=== PATIENT | male | born 1950 | race Caucasian/White ===

== ENCOUNTER → 2021-02-22 08:57 | Outpatient (CLI) | payer MEDICARE, SELFPAY ==
--- NOTE | ~2021-02-22 | CT_ITS ---
EXAMINATION: CT abdomen pelvis w con EXAM DATE: 02/22/2021 09:33 INDICATION: Fatigue, generalized abdominal pain. History of ulcerative colitis, kidney stones, just t umor. Jejunal tumor. TECHNIQUE: Spiral CT of the abdomen and pelvis was performed without contrast. Axial, coronal and sag ittal images were reviewed. The dose-length product (DLP) for this examination was 505.08 mGy-cm. T he exposure was tailored according to patient size (auto mA exposure control), and iterative reconstr uction (ASIR) was used as additional dose reduction technique. Comparison is made to prior examinatio n from 01/15/2018. FINDINGS: Multiple bilateral kidney stones measuring up to about 9 mm on the right. No ureteral stone s or hydronephrosis. There is moderate prostatomegaly. The bladder is unremarkable. The liver, spl een, adrenal glands and pancreas are unremarkable. Gallbladder is unremarkable. No biliary obstruct ion. There is no retroperitoneal or pelvic lymphadenopathy. There is mild to moderate scattered ar teriosclerotic disease. Small umbilical fat-containing hernia. The appendix is normal. There is moderate sigmoid colonic diverticulosis. There is no adjacent infla mmatory change to suggest diverticulitis. There is small bowel anastomosis site without wall thicken ing. The stomach and small bowel are unremarkable. There is expected amount of colonic stool. No free intraperitoneal gas. The heart is normal in size. There are no pericardial or pleural effusio ns. The lung bases are unremarkable. There are no osteoblastic or osteolytic lesions identified. IMPRESSION: 1. Bilateral nephrolithiasis. 2. Moderate sigmoid diverticulosis. 3. Small umbilical hernia. 4. Prostatomegaly. Reviewed, dictated and finalized at location B.
[2021-02-22 09:22] LABS: Estimated Glomerular Filt Rate > 60
== END ==
PROVIDERS: PCP Student in an Organized Health Care Education/Training Program; Visit Provider Student in an Organized Health Care Education/Training Program
DX: K57.30 Diverticulosis of large intestine without perforation or abscess without bleeding (principal); K44.9 Diaphragmatic hernia without obstruction or gangrene; N40.0 Benign prostatic hyperplasia without lower urinary tract symptoms; N20.0 Calculus of kidney
CPT/HCPCS: 74177; Q9967

== ENCOUNTER 2022-03-26 07:00 | Outpatient (NON) | payer MEDICARE, SELFPAY | END 2022-03-26 07:01 | disposition home or self-care (01) | PROVIDERS: PCP Student in an Organized Health Care Education/Training Program; Visit Provider Internal Medicine Gastroenterology | DX: K51.90 Ulcerative colitis, unspecified, without complications (principal); M49.80 Spondylopathy in diseases classified elsewhere, site unspecified | CPT/HCPCS: 88305 ==

== ENCOUNTER 2022-03-26 11:15 | Day surgery (SDC) | payer MEDICARE, SELFPAY ==
[2022-03-12 13:47] VITALS: BMI 26.1
[2022-03-26 11:43] VITALS: BP 154/96; PULSE 100; RESP 16; TEMP 36.6; O2SAT 100
[2022-03-26] MEDS: LACTATED RINGERS 1,000 ML 150 ML IV CONT (11:59)
--- NOTE | 2022-03-26 11:59 | WPDANESEPPF ---
Anes - Initial Pre Proc Eval Procedure: Operation Date: 03/26/22 12:45 Proposed Procedures p Diagnostic Colonoscopy - Clarke Howard MD Date/Time: 03/26/22 11:59 Surgeon: Clarke Howard MD Pre Op Diagnosis: Ulcerative Colitis Patient Data Age: 71 Gender: M Height: 1.73 m Weight: 78.4 kg Last Vital Signs Temp 36.6 C 03/26/22 11:43 Pulse 100 03/26/22 11:43 Resp 16 03/26/22 11:43 BP 154/96 H 03/26/22 11:43 Pulse Ox 100 03/26/22 11:43 O2 Del Method Room Air 03/26/22 11:43 Allergies Allergy/AdvReac Type Severity Reaction Status Date / Time ibuprofen Allergy Unknown Ulcers Verified 03/26/22 11:53 Tetanus Vaccines and Toxoid Allergy Unknown Skin Verified 03/26/22 11:53 Reaction tetanus toxoid, adsorbed AdvReac Mild Other Verified 03/26/22 11:53 Home Medications Medication Instructions Recorded Confirmed Type fluticasone propionate 50 2 spray intranasal DAILY 04/14/19 03/26/22 History mcg/actuation nasal spray,suspension (Flonase Allergy Relief) mesalamine 1.2 gram tablet,delayed 4.8 gm PO DAILY 04/14/19 03/26/22 History release (Lialda) multivitamin 1 tablet PO DAILY 02/14/22 03/26/22 History sodium,potassium,mag sulfates 17.5 See Rx Instructions PO .COMPLEX 02/14/22 03/26/22 Rx gram-3.13 gram-1.6 gram oral soln #354 mL (Suprep Bowel Prep Kit) Patient hx anesthesia problems: none Family hx anesthesia problems: none Results Review: All pre-operative results and documents have been reviewed as part of the pre-operative evaluation. 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) Surgical History Surgical History H/O lithotripsy History of knee replacement Hx of inguinal hernia surgery Family History Family History Mother Diabetes mellitus Patient's mother is , Onset Age: 80 Father Hypertension Cerebrovascular accident Patient's father is , Onset Age: 80 Sibling Depression Social History Social History Smoking status: Former smoker Alcohol intake: current Substance use: never Substance use type: does not use Living arrangements: with family Spiritual care concerns: No Anes - Eval Final PreProcedure Day of Procedure 03/26/22 11:59 Patient weight: overweight Heart: regular rate and rhythm Lungs: clear to auscultation Airway: Mallampati scale class II Neurological: alert and oriented Last oral intake: >/= 8 hours ASA classification: II Emergent: no Anesthetic plan: proceed Anesthesia type and monitoring: general GIVS and standard monitoring Results Review: All pre-operative results and documents have been reviewed as part of the pre-operative evaluation. Informed Consent: The patient's anesthetic plan and its attendant risks and benefits were discussed with the patient/family/POA. Questions were solicited and answers provided to the satisfaction of the patient/family/POA.
--- NOTE | 2022-03-26 12:05 | WPDHPUPDATE1 ---
History and Physical Update Update Date/Time: 03/26/22 12:05 History and Physical has been reviewed, including an updated exam of the patient. There are NO changes in the patient's condition. Risks, benefits, and alternatives have been discussed and questions answered. Patient agrees to proceed with procedure.
[2022-03-26 12:28] VITALS: BP 123/81; PULSE 87; RESP 14; O2SAT 97
--- NOTE | 2022-03-26 12:33 | PM.HPGS ---
History of Present Illness History of Present Illness Consent: Risks, benefits, and alternatives have been discussed and questions answered. Patient agrees to proceed with procedure. Chief complaint: Ulcerative Colitis Narrative: Lawrence Schofield is a 71 year old male Presents for screening colonoscopy. Patient has a history of ulcerative colitis diagnosed more than 10 years ago. Patient was found to have limited rectosigmoid itis in the past. He currently presents for surveillance exam is been many years since previous screening exam. Patient reports occasionally will have bright red blood per rectum. Lialda was prescribed patient currently only takes 1 or 2 tablets on an intermittent basis. He recently had a few days of bright red blood per rectum for which he took prednisone perhaps 3 tablets for 2 or 3 days. Patient states his current stools have returned to normal. Patient also has been treated for arthritis. He was told this was rheumatoid arthritis. Family history noncontributory. Review of Systems Review of Systems: Review of systems noncontributory. 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) Surgical History Surgical History H/O lithotripsy History of knee replacement Hx of inguinal hernia surgery Family History Family History Mother Diabetes mellitus Patient's mother is , Onset Age: 80 Father Hypertension Cerebrovascular accident Patient's father is , Onset Age: 80 Sibling Depression Social History Social History Smoking status: Former smoker Alcohol intake: current Substance use: never Substance use type: does not use Living arrangements: with family Spiritual care concerns: No Meds Home Medications and Allergies Home Medications Medication Instructions Recorded Confirmed Type fluticasone propionate 50 2 spray intranasal DAILY 04/14/19 03/26/22 History mcg/actuation nasal spray,suspension (Flonase Allergy Relief) mesalamine 1.2 gram tablet,delayed 4.8 gm PO DAILY 04/14/19 03/26/22 History release (Lialda) multivitamin 1 tablet PO DAILY 02/14/22 03/26/22 History sodium,potassium,mag sulfates 17.5 See Rx Instructions PO .COMPLEX 02/14/22 03/26/22 Rx gram-3.13 gram-1.6 gram oral soln #354 mL (Suprep Bowel Prep Kit) Allergies Allergy/AdvReac Type Severity Reaction Status Date / Time ibuprofen Allergy Unknown Ulcers Verified 03/26/22 11:53 Tetanus Vaccines and Toxoid Allergy Unknown Skin Verified 03/26/22 11:53 Reaction tetanus toxoid, adsorbed AdvReac Mild Other Verified 03/26/22 11:53 Vital Signs Vital Signs - 24 hr 03/26/22 11:43 Temperature 98 F Pulse Rate 100 Respiratory Rate 16 Blood Pressure 154/96 H Pulse Oximetry 100 Oxygen Delivery Room Air Exam Narrative: Physical exam reveals patient be alert. Vital signs stable. HEENT exam is unremarkable. Patient is anicteric. Lungs are clear to auscultation and percussion. Heart is without murmur or extra sounds. Abdomen bowel sounds are present soft nontender with no organomegaly. Digital external rectal exam normal. Assessment and Plan Assessment and plan (1) Left sided ulcerative colitis: Code(s): K51.50 - Left sided colitis without complications Status: Acute Assessment and Plan: Patient with history of ulcerative colitis spent present for 10 or 12 years. Limited to the left-sided procto sigmoid area. Patient currently takes Lialda 1.2g tablets only 1 or 2 a day. He on occasion will add bright red blood per rectum. He presents today
--- NOTE | 2022-03-26 12:34 | WPDANESPN ---
Anes - Prog Note Post-Op Date/Time: 03/26/22 12:34 Cardiovascular status: normal Respiratory status: normal Airway patency: baseline Mental status: baseline Vital Signs: Last Vital Signs Temp 36.6 C 03/26/22 11:43 Pulse 100 03/26/22 11:43 Resp 16 03/26/22 11:43 BP 154/96 H 03/26/22 11:43 Pulse Ox 100 03/26/22 11:43 O2 Del Method Room Air 03/26/22 11:43 Pain Score (VAS): 0/10 I/O: Intake & Output 03/25/22 03/26/22 03/26/22 23:59 07:59 15:59 Intake Total 500 Balance 500 Patient Feedback: Patient satisfied with anesthetic care.
[2022-03-26 12:38] VITALS: BP 123/82; PULSE 80; RESP 14; O2SAT 96
[2022-03-26 12:48] VITALS: BP 138/89; PULSE 85; RESP 13; O2SAT 98
== END 2022-03-26 13:15 | disposition home or self-care (01) ==
PROVIDERS: PCP Student in an Organized Health Care Education/Training Program; Visit Provider Internal Medicine Gastroenterology
PROC: 0DJD8ZZ Inspection of Lower Intestinal Tract, Via Natural or Artificial Opening Endoscopic (ICD-10-PCS; CPT 45378; principal; 2022-03-26 12:45)
DX: K51.90 Ulcerative colitis, unspecified, without complications (principal)
CPT/HCPCS: 45380

== ENCOUNTER 2022-03-26 13:16 | Outpatient (CLI) | payer MEDICARE, SELFPAY ==
[2022-03-31 14:01] LABS: TPMT Activity 8
== END 2022-03-26 13:17 | disposition home or self-care (01) ==
PROVIDERS: PCP Student in an Organized Health Care Education/Training Program; Visit Provider Internal Medicine Gastroenterology
DX: K51.50 Left sided colitis without complications (principal)
CPT/HCPCS: 36415; 82657; 88305

== ENCOUNTER 2024-02-13 10:30 | Emergency (ER) | payer MEDICARE, SELFPAY ==
[2024-02-13] VITALS (11 sets, daily range): BP systolic 148–200; BP diastolic 81–130; PULSE 62–82; RESP 13–21; TEMP 36.7–36.9; O2SAT 98–100
--- NOTE | ~2024-02-13 | XR_ITS ---
EXAMINATION: XR chest 2V 02/13/2024 11:13 INDICATION: Left-sided chest pain PROCEDURE: 2 view chest COMPARISON: No prior studies for comparison. FINDINGS: The lungs are clear. The cardiomediastinal silhouette is within normal limits. There are no pleural effusions. There is no pneumothorax suspected. IMPRESSION: 1: NO ACUTE CARDIOPULMONARY DISEASE. Reviewed, dictated and finalized at location B.
--- NOTE | 2024-02-13 10:32 | ECG_ITS ---
Test Date: 2024-02-13 10:37:19 Measurements Intervals Loman Rate: 78 P: 31 CT: 199 QRS: -24 QRSD: 96 T: 53 QT: 386 QTc: 440 Interpretive Statements SINUS RHYTHM LEFT ATRIAL ENLARGEMENT [-0.15mV P WAVE IN V1/V2] BORDERLINE LEFT AXIS DEVIATION [QRS AXIS < -20] POSSIBLE LEFT VENTRICULAR HYPERTROPHY [VOLTAGE CRITERIA PLUS LAE OR QRS WIDENING] No previous ECG available for comparison Electronically Signed On 02-13-2024 10:45:43 CDT by Gregory Kumari M.D.
[2024-02-13 10:49] LABS: Basophils Absolute Auto 0.1 K/mm3 (0.0-0.1); Basophils Percent Auto 1.4 % (0.2-1.2); Eosinophils Absolute Auto 0.2 K/mm3 (0-0.3); Eosinophils Percent Auto 3.4 % (0-4.4); Hematocrit 48.7 % (42.0-52.0); Hemoglobin 16.1 g/dL (14.0-18.0); Immature Granulocyte Absolute 0.02 K/mm3 (0.00-0.031); Immature Granulocyte Percent A 0.4 % (0-0.5); Lymphocytes Absolute Auto 1.13 K/mm3 (0.9-3.2); Mean Corpuscular HGB Conc 33.1 g/dl (32-36); Mean Corpuscular Hemoglobin 31.9 pg (26-34); Mean Corpuscular Volume 96.6 fl (80-100); Monocytes Absolute Auto 0.6 K/mm3 (0.1-0.6); Monocytes Percent Auto 10.2 % (2.6-8.5); Neutrophils Absolute Auto 3.7 K/mm3 (1.3-6.7); Neutrophils Percent Auto 64.6 % (45.5-73.1); Platelet Count Result 283 k/mm3 (150-375); Red Blood Count 5.04 M/mm3 (4.6-6.20); Red Cell Distribution Width 13.6 % (11.5-14.5); White Blood Count 5.7 K/mm3 (4.5-10.0)
[2024-02-13 11:00] LABS: INR 0.9; Partial Thromboplastin Time 28.1 Seconds (22.3-36.8); Prothrombin Time 12.7 Seconds (11.1-14.7)
[2024-02-13 11:03] LABS: Alanine Aminotransferase 27 U/L (6-50); Albumin Level 4.9 g/dL (3.5-5.1); Alkaline Phosphatase 77 U/L (38-126); Anion Gap 5 mmol/L (4-12); Aspartate Amino Transferase 32 U/L (17-59); Bilirubin,Total 0.7 mg/dL (0.2-1.3); Blood Urea Nitrogen 14 mg/dL (9-20); Calcium 9.6 mg/dL (8.4-10.2); Carbon Dioxide 34 mmol/L (22-30); Chloride 101 mmol/L (98-107); Estimated CRCL calculation 71 ml/min; Estimated Glomerular Filt Rate > 60; Glucose 113 mg/dL (65-110); Lipase 56 U/L (23-300); Potassium 4.2 mmol/L (3.4-5.0); Sodium 140 mmol/L (137-145)
[2024-02-13 11:14] LABS: Troponin I < 0.012 ng/mL (0.000-0.034)
--- NOTE | 2024-02-13 11:38 | PC.NURSE ---
patient ambulated to the restroom with steady gate
--- NOTE | 2024-02-13 12:33 | ED.CHESTPAIN ---
HPI - Chest Pain General Chief Complaint: Chest Pain Stated Complaint: high bp, chest pain Time Seen by Provider: 02/13/24 12:08 History of Present Illness HPI narrative: 73-year-old male presenting with chest pain. Patient has a history of hypertension, hyperlipidemia, no longer takes his antihypertensives or statin due to side effects. He was recently on a long road trip and returned yesterday. Yesterday he had several episodes of intermittent, sharp, left-sided chest pain. He attributed it to musculoskeletal pain. He was able to do yd work last night without difficulty. He got up this morning while making breakfast he again noticed some aching in his left chest. Worsened with certain movements and with palpation. He checked his blood pressure and it was 194 systolic so he came in for evaluation. Currently, he states he feels much improved. States he only has mild soreness in his chest. States that he may have had some slight lightheadedness earlier but he otherwise denies shortness of breath, palpitations, diaphoresis, nausea, leg swelling. No further complaints. Related Data Home Medications Medication Instructions Recorded Confirmed fluticasone propionate 50 2 spray intranasal DAILY 04/14/19 03/26/22 mcg/actuation nasal spray,suspension (Flonase Allergy Relief) multivitamin 1 tablet PO DAILY 02/14/22 03/26/22 Allergies Allergy/AdvReac Type Severity Reaction Status Date / Time ibuprofen Allergy Unknown Ulcers Verified 05/16/22 10:53 Tetanus Vaccines and Toxoid Allergy Unknown Skin Verified 05/16/22 10:53 Reaction tetanus toxoid, adsorbed AdvReac Mild Other Verified 05/16/22 10:53 Review of Systems Review of Systems: All systems reviewed & are unremarkable except as noted in HPI and below PMFSH Past Medical History Medical History Allergies ALIDA positive Cancer GERD (gastroesophageal reflux disease) Kidney disease Pre-diabetes 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) Surgical History Surgical History H/O lithotripsy History of knee replacement Hx of inguinal hernia surgery Family History Family History Mother Diabetes mellitus Patient's mother is , Onset Age: 80 Father Hypertension Cerebrovascular accident Patient's father is , Onset Age: 80 Sibling Depression Social History Social History Smoking status: Former smoker Alcohol intake: current Substance use: never Substance use type: does not use Living arrangements: with family Spiritual care concerns: No Exam Narrative: GENERAL: Well-appearing, in no acute distress, pleasant cooperative HEAD: Normocephalic, atraumatic. EYES: PERRLA and EOMI. ENT: Mucous membranes moist. NECK: Supple. CHEST: Clear to auscultation. No respiratory distress. HEART: Regular rate and rhythm ABDOMEN: Soft, nontender, nondistended EXTREMITIES: No edema. SKIN: Warm, dry, no rash. NEURO: No focal deficits. Alert and oriented x3. PSYCH: Normal mood and affect. Course Vital Signs Vital signs: Vital Signs Temperature 98.4 F 02/13/24 10:34 Pulse Rate 82 02/13/24 10:34 Respiratory Rate 16 02/13/24 10:34 Blood Pressure 200/130 H 02/13/24 10:34 Pulse Oximetry 98 02/13/24 10:34 Temperature 98.0 F 02/13/24 15:15 Pulse Rate 80 02/13/24 15:15 Respiratory Rate 18 02/13/24 15:15 Blood Pressure 168/94 H 02/13/24 15:15 Pulse Oximetry 99 02/13/24 15:15 Oxygen Delivery Room Air 02/13/24 11:30 MDM - Chest Pain MDM Narrative Medical decision making narrative: 73-year-old male presenting with high blood pressure and chest pain. Patient initially hypertensive in the 170s to 200 systolic. By the time I e
[2024-02-13 14:16] LABS: Troponin I < 0.012 ng/mL (0.000-0.034)
== END 2024-02-13 15:20 | disposition home or self-care (01) ==
PROVIDERS: Student in an Organized Health Care Education/Training Program; Emergency Provider Emergency Medicine; PCP Student in an Organized Health Care Education/Training Program
DX: R07.89 Other chest pain (principal); I10 Essential (primary) hypertension; E78.5 Hyperlipidemia, unspecified; N28.9 Disorder of kidney and ureter, unspecified; R73.03 Prediabetes; K21.9 Gastro-esophageal reflux disease without esophagitis; Z96.659 Presence of unspecified artificial knee joint; Z87.891 Personal history of nicotine dependence; R94.31 Abnormal electrocardiogram [ECG] [EKG]
CPT/HCPCS: 36415; 71046; 80053; 83690; 84484; 85025; 85610; 85730; 93005; 99284

== ENCOUNTER 2025-01-28 11:07 | Outpatient (CLI) | payer MEDICARE, SELFPAY ==
[2025-01-28 11:29] LABS: Hematocrit 39.7 % (42.0-52.0); Hemoglobin 12.7 g/dL (14.0-18.0); Mean Corpuscular HGB Conc 32.0 g/dl (32-36); Mean Corpuscular Hemoglobin 31.5 pg (26-34); Mean Corpuscular Volume 98.5 fl (80-100); Platelet Count Result 273 k/mm3 (150-375); Red Blood Count 4.03 M/mm3 (4.6-6.20); White Blood Count 5.1 K/mm3 (4.5-10.0)
--- OUTSIDE RECORDS SUMMARY | 2025-01-28 11:37 | XMS_ITS | Clinical Summary ---
Author Organization [facility] [address] Address [address] [place] [address] Care Team Providers Care Supervisor [employer] Name Role Phone Tyrone Cantrell MD, Nestor Unavailable [phone] Jett Jacobson DO Primary Care Provide r Ryan Campbell Unavailable Unavailable Allergies Active Allergy Reactions Criticality Noted Date Comments Ibuprofen Other (See comments) 05/16/2022 Tetanus Toxoid Rash Medium 05/16/2022 Tetanus Vaccines And Toxoid Other (See comments),Rash Medi um 05/16/2022 Medications mesalamine (LIALDA ORAL) Take 1 tablet by mouth 4 (four) times a day Active DULoxetine DR (CYMBALTA) 30 mg capsule Take 30 mg by mouth 2 (two) times a day 1 Active ascorbic acid (VITAMIN C) 100 mg tablet Take 100 mg by mouth daily Active multivitamin capsule Take 1 capsule by mouth daily Active acetaminophen (TYLENOL) 500 mg tablet Take 1 tablet (500 mg total) by mouth every 6 (six) hours as needed Active acetaminophen ER (Tylenol Arthritis Pain) 650 mg 8 hr tablet 1 tablet (650 mg total) 5 Active acetaminophen/d iphenhydramine (TYLENOL PM EXTRA STRENGTH ORAL) 1 tablet(s), Oral, qhs, 10 tablet(s), Tablet(s), 0 5 Active diphenhydrAMINE 25 mg capsule Take 1 tablet/capsule (25 mg total) by mouth nightly as needed Active Eliquis 5 mg tablet Take 1 tablet (5 mg total) by mouth 2 (two) times a day 5 Active lisinopriL (PRINIVIL,ZESTR IL) 20 mg tablet 5 Active ezetimibe (ZETIA) 10 mg tablet Take 1 tablet (10 mg total) by mouth daily Active metoprolol XL (TOPROL-XL) 50 mg extended release tablet Take 1 tablet (50 mg total) by mouth daily 5 Active tadalafiL (CIALIS) 20 mg tablet TAKE 1/2 TO 1 (ONE-HALF TO ONE) TABLET BY MOUTH ONCE DAILY NEEDED FOR ERECTILE DYSFUNCTION Active Active Problems Problem Noted Date Diagnosed Date 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 Chills (without fever) 02/27/2021 Neuropathy 02/27/2021 Skin lesion of scalp 02/27/2021 Hoarseness 02/27/2021 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 Other pruritus 02/27/2021 Palpitations 02/25/2018 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 018 Encounters Date Type Department Care Team Description 01/22/2025 7:20 AM CDT - 01/22/2025 11:59 PM CDT Hospital Encounter [facility] [id number] Vivian NOBLE, [place] [address] Discharge Disposition: Discharge to home or self care 01/22/2025 7:20 AM CDT - 01/22/2025 11:59 PM CDT Hospital Encounter [facility] [address] Vivian NOBLE, [place] [address] 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; Pain in both knees, unspecified chronicity Discharge Disposition: Discharge to home or self care 01/22/2025 7:19 AM CDT - 01/22/2025 11:59 PM CDT Hospital Encounter [facility] Radiology [id number] [place] [phone] Rajeev Ferrer MD Ponkowski, Michael James, MD Aftercare following right knee joint replacement surgery; Right knee pain, unspecified chronicity Discharge Disposition: Discharge to home or self care 01/20/2025 1:45 PM CDT Ancillary Procedure Radiology - [address] [place] [address] [address] [place] [phone] 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 01/20/2025 1:15 PM CDT Office Visit [facility] Medicine Orthopaedic Surgery [address] [facility] [address] [place] [address] Tracey Lund NP 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 (Primary Dx); Pain in both knees, unspecified chronicity; Hip pain, bilateral; Aftercare following right knee joint replacement surgery; Right knee pain, unspecified chronicity 01/20/2025 12:45 PM CDT Ancillary Procedure Radiology - [address] [place] [address] [address] [place] [phone] 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; Pain in both knees, unspecified chronicity 01/18/2025 3:00 [place] [address] 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; Pain in both knees, unspecified chronicity from Last 3 Months Immunizations Immunization Administration Dates Next Due Influenza, Quadrivalent, Hig h Dose, Preservative Free, Intrr 03/02/2020 Influenza, Quadrivalent, Rec ombinant, Egg Free, Preservative Free, Intramuscular 02/12/2019 Influenza, Quadrivalent, Spl it, Preservative Free, Intramuscular 02/13/2021,02/11/2018 Influenza, Unspecified 02/12/2019,01/30/2017 Pneumococcal Conjugate PCV 13 12/07/2019 Pneumococcal Polysaccharide PPV23 11/17/2018 ZOSTER LIVE 01/30/2017,01/18/2014 Surgical History Surgery Date Site/Laterality Comments COLONOSCOPY REPLACEMENT TOTAL KNEE ABDOMINAL SURGERY GIST ABDOMINAL HERNIA REPAIR Medical History Medical History Date Comments Diabetes mellitus pre diabetic Ulcerative colitis Nephrolithiasis Depression Arthritis Family History Medical History Relation Name Comments Hypertension Father Stroke Father Breast cancer Mother Diabetes Mother pacemaker Mother Alzheimer's disease Sister Relation Name Status Comments Father Mother Sister Social History Tobacco Use Types Packs/Day Years Used Date Smoking Tobacco: Never Smokeless Tobacco: Never Comments:1975 Alcohol Use Standard Drinks/Week Comments Yes 0 (1 standard drink = 0.6 oz pur e alcohol) 1-2 weekly AUDIT-C Answer Date Recorded Q1: How often do you have a drink containing alc ohol? 2-3 times a week 04/16/2021 Average Number of Drinks Not on file 021 Frequency of Binge Drinking Not on file 03/29 Sex and Gender Information Value Date Recorded Sex Assigned at Not on file Legal Sex Male 3:15 AM [employer] Gender Identity Not on file Sexual Orientation Not on file Obstetrics History Last Filed Vital Signs Vital Sign Reading Time Taken Comments Blood Pressure 145/76 01/22/2025 7:31 AM CDT Pulse 91 01/22/2025 7:31 AM CDT Temperature 36.2 C (97.1 F) 01/22/2025 7:31 AM CDT Respiratory Rate 16 01/22/2025 7:31 AM CDT Oxygen Saturation 96% 01/22/2025 7:31 AM CDT Inhaled Oxygen Concentration - - Weight 83.9 kg (185 lb) 01/20/2025 1:07 PM CDT Height 168.9 cm (5' 6.5) 01/20/2025 1:07 PM CDT Body Mass Index 29.41 01/20/2025 1:07 PM CDT Plan of Treatment Health Maintenance Due Date Last Done Comments Colon Cancer Screening-Colonoscopy 1950 Depression Screening 1950 Hepatitis C Screening 1950 DTaP/Tdap/Td Vaccine (1 - Tdap) 12/17/1963 Hepatitis B Screening 1970 Zoster Vaccine (2 of 3) 03/27/2017 01/30/2017, 01/18 Well Visit 65+ 2017 Covid-19 Vaccine (5 - 2024-2 6 season) 2024 08/12/2020, 08/01/2020, 06/24/2020, Additional history exists Influenza Vaccine (#1) 2024 3, 02/16/2022, 02/13/2021, Additional history exists Fall Risk Assessment 01/22/2026 01/22/2025 Pneumococcal vaccine 65+ Completed 020, 11/17/2018, 08/31/2015 Abdominal Aortic Aneurysm (A AA) Screen Completed 02/22/2021 Procedures Procedure Name Priority Date/Time Associated Diagnosis Comments NM BONE IMAGING 3 PHASE Schedule Routine, Read Routine (OP Routine) 01/22/2025 10:54 AM CDT 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 Pain in both knees, unspecified chronicity CELL DIFFERENTIAL, BODY FLUID Routine 01/22/2025 9:00 AM CDT CRYSTAL ANALYSIS, BODY FLUID Routine 01/22/2025 9:00 AM CDT CELL COUNT W/REFLEX DIFFERENTIAL, BODY FLUID Routine 01/22/2025 9:00 AM CDT AEROBIC AND ANAEROBIC CULTURE AND GRAM STAIN Routine 01/22/2025 9:00 AM CDT MYCOBACTERIOLOGY AFB CULTURE Routine 01/22/2025 9:00 AM CDT MYCOLOGY (FUNGAL) CULTURE Routine 01/22/2025 9:00 AM CDT US GUIDED ARTHROCENTESIS MAJOR JOINT Schedule Routine, Read Routine (OP Routine) 01/22/2025 8:02 AM CDT Aftercare following right knee joint replacement surgery Right knee pain, unspecified chronicity XR HIPS BILATERAL 3 OR 4 VW Schedule Routine, Read Routine (OP Routine) 01/20/2025 1:55 PM CDT 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 XR KNEE RIGHT 3 VIEWS Schedule Routine, Read Routine (OP Routine) 01/20/2025 12:57 PM CDT 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 Pain in both knees, unspecified chronicity XR KNEE LEFT 3 VIEWS Schedule Routine, Read Routine (OP Routine) 01/20/2025 12:57 PM CDT 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 Pain in both knees, unspecified chronicity DIFFERENTIAL AUTO Routine 01/18/2025 3:1 2 PM CDT 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 Pain in both knees, unspecified chronicity CBC WITH AUTO DIFFERENTIAL Routine 01/18/2025 3:12 PM CDT 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 Pain in both knees, unspecified chronicity ERYTHROCYTE SEDIMENTATION RATE Routine 01/18/2025 3:12 PM CDT 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 Pain in both knees, unspecified chronicity CRP (ACUTE PHASE) Routine 01/18/2025 3:1 2 PM CDT 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 Pain in both knees, unspecified chronicity from Last 3 Months Results * NM Bone Imaging 3 Phase (01/22/2025 10:54 AM CDT) Anatomical Region Laterality Modality N/A Nuclear Medicine 01/22/2025 4:40 PM CDT Impressions 01/22/2025 5:39 PM CDT Triple phase positive bone scintigraphy with increased periprosthetic uptake at the left knee, predominantly around the femoral component. This is favored to represent infection given the degree of soft tissue hyperemia, however hardware loosening should also be considered. Recommend correlation with recent fluid sampling. If further characterization is desired, dual isotope imaging with indium white cells and sulfur colloid could be considered as clinically indicated. Dictated by: Gunner Phillips M.D. The radiology attending physician has personally reviewed this study, and had reviewed and/or edited this written report and agrees with it. Electronically signed by: Lazara Avalos M.D. Narrative 01/22/2025 5:39 PM CDT EXAMINATION: BONE SCINTIGRAPHY (THREE-PHASE) DATE OF STUDY: 01/22/2025 RADIOPHARMACEUTICAL: 21.2 mCi Tc-99m MDP i.v. HISTORY: 74-year-old male with bilateral left greater than right knee pain, warmth, and swelling as well as bilateral knee arthroplasties. FINDINGS: A three-phase examination of the left knee was performed consisting of radionuclide angiography and immediate post-injection images of the left knee,and delayed images of the left knee. Prior nuclear medicine studies used for comparison: none. Other radiographic comparisons: Radiographs 01/20/2025 There is relative photopenia at the bilateral knees correlating with the known knee arthroplasties. There is increased periprosthetic uptake at the left knee joint on angiographic, blood pool, and delayed phase imaging primarily at the femoral component. Procedure Note Lazara Avalos MD - 01/22/2025 EXAMINATION: BONE SCINTIGRAPHY (THREE-PHASE) DATE OF STUDY: 01/22/2025 RADIOPHARMACEUTICAL: 21.2 mCi Tc-99m MDP i.v. HISTORY: 74-year-old male with bilateral left greater than right knee pain, warmth, and swelling as well as bilateral knee arthroplasties. FINDINGS: A three-phase examination of the left knee was performed consisting of radionuclide angiography and immediate post-injection images of the left knee,and delayed images of the left knee. Prior nuclear medicine studies used for comparison: none. Other radiographic comparisons: Radiographs 01/20/2025 There is relative photopenia at the bilateral knees correlating with the known knee arthroplasties. There is increased periprosthetic uptake at the left knee joint on angiographic, blood pool, and delayed phase imaging primarily at the femoral component. IMPRESSION: Triple phase positive bone scintigraphy with increased periprosthetic uptake at the left knee, predominantly around the femoral component. This is favored to represent infection given the degree of soft tissue hyperemia, however hardware loosening should also be considered. Recommend correlation with recent fluid sampling. If further characterization is desired, dual isotope imaging with indium white cells and sulfur colloid could be considered as clinically indicated. Dictated by: Gunner Phillips M.D. The radiology attending physician has personally reviewed this study, and had reviewed and/or edited this written report and agrees with it. Electronically signed by: Lazara Avalos M.D. us Tracey Lund RUG RECEIVING CLERK IMG NM PROCEDURES Final R esult * Crystal Analysis, Body Fluid (01/22/2025 9:00 AM CDT) Specimen type, fld Synovial Comment:Testing performed by : [facility], [address] [place] [address], [place]., [address] Crystals Not Present Not Present NICHO ROCKWELL Comment:Testing performed by : [facility], [address] [place] [address]., [id number] Fluid 01/22/2025 9:00 AM CDT 01/22/2025 10:01 AM CDT Narrative NICHO NEFFWCH - 01/22/2025 11:48 AM CDT Left knee Tracey Lund RUG RECEIVING CLERK LAB BODY FLUIDS AND STOOL S ORDERABLES Final Result Performing Organization Address [facility] de Phone Number NICHO HARDINGCH [address] [facility] [address] [place] [address] * Cell Differential, Body Fluid (01/22/2025 9:00 AM CDT) Total cells diffed 100 % Comment: Interpretive Data Unless otherwise specified, the reference range and other method performance specifications have not been established for CSF/Body Fluid tests. The test results should be integrated into the clinical context for interpretation. Current interpretive data was last revised on 2018. Neutrophils, fld 2 % [facility] Lymphs, fld 36 % [facility] Monocyte, fld 29 % [facility] Synovial cells, fld 33 % [facility] Fluid 01/22/2025 9:00 AM CDT 01/22/2025 9:19 AM CDT Tracey Lund RUG RECEIVING CLERK LAB BODY FLUIDS AND STOOL S ORDERABLES Final Result Performing Organization Address [facility] de Phone Number NICHO NEFFWCH [address] [address] [employer]. Department [place] [address] * Cell count w/rflx diff, body fluid (01/22/2025 9:00 AM CDT) Specimen type, fld Synovial Color, fld Straw [facility] Clarity, fld Clear [facility] Nucleated cells, fld 524 /cumm [facility] Comment: Interpretive Data Unless otherwise specified, the reference range and other method performance specifications have not been established for CSF/Body Fluid tests. The test results should be integrated into the clinical context for interpretation. Current interpretive data was last revised on 2018. RBC, fld 2,000 /cumm NICHO ROCKWELL Fluid 01/22/2025 9:00 AM CDT 01/22/2025 9:19 AM CDT Narrative NICHO ROCKWELL - 01/22/2025 10:17 AM CDT Left knee Tracey Lund RUG RECEIVING CLERK LAB BODY FLUIDS AND STOOL S ORDERABLES Final Result NICHO NEFFCH [id number] [employer]. [facility] [place] [address] * Aerobic and anaerobic culture and gram stain Synovial fluid Knee, left (01/22/2025 9:00 AM CDT) Direct Specimen Exam Stain: Rare polymorphonuclear leukocytes seen. No organisms seen. Comment:Testing performed by : [facility], [address] [place] [address]., [id number] Report Final Report: No growth NICHO ROCKWELL Comment:Testing performed by : [facility], [address] [place] [address]., [id number] Synovial fluid (Knee, left) 01/22/2025 9:00 AM CDT 01/22/2025 10:08 AM CDT Narrative NICHO ROCKWELL - 01/27/2025 8:47 AM CDT Results may be compromised by the low volume of specimen received. Tracey Lund RUG RECEIVING CLERK LAB MICROBIOLOGY - GENERA L ORDERABLES Final Result [facility] NEFFWCH [address] [employer]. [facility] [place] [address] * US Guided Aspiration or Injection of Major Joint (01/22/2025 8:02 AM CDT) Anatomical Region Laterality Modality Entire body N/A X-Ray Angiograph y 01/22/2025 8:38 AM CDT Impressions 01/22/2025 8:38 AM CDT 1. Left knee joint aspiration under ultrasound guidance. 13 mL of clear straw-colored fluid was aspirated and sent for cell count, crystal evaluation, Gram stain, culture, and Synovasure. Electronically signed by: Brien Yang MD Narrative 01/22/2025 8:38 AM CDT EXAMINATION: Left knee joint aspiration under ultrasound guidance HISTORY: Left knee arthroplasty in place with left knee pain and concern for periprosthetic joint infection ATTENDING PRESENCE: Dr. Brien Yang MD, the attending radiologist, was present from the beginning to the end of the procedure. SEDATION: The patient did not require conscious sedation for the procedure. TECHNIQUE: The risks, benefits and alternatives were discussed and informed consent was obtained. Prior to beginning the procedure, [place] Protocol was performed to confirm the patient's identity and the planned procedure. Sterile barriers used during the procedure included cap, mask, hand hygiene, sterile gloves, and sterile drape. Chloraprep was used for cutaneous antisepsis. The patient was placed supine on the procedure table. The left knee joint was localized with ultrasound guidance. Local anesthesia was achieved with subcutaneous injection of 1% lidocaine 2 mL. An 18-gauge needle was then introduced into the joint under imaging guidance. 13 mL of clear straw-colored fluid was aspirated. The needle was removed. The skin was cleansed with hydrogen peroxide, and a bandage was placed. Complication: None Type: None ESTIMATED BLOOD LOSS: None CONDITION: Stable condition. DISCHARGED TO: Home FINDINGS: Initial sonographic images demonstrate a small left knee effusion. Imaging confirm appropriate position of the needle tip. 13 mL of clear straw-colored fluid was aspirated. Procedure Note Brien Yang MD - 01/22/2025 EXAMINATION: Left knee joint aspiration under ultrasound guidance HISTORY: Left knee arthroplasty in place with left knee pain and concern for periprosthetic joint infection ATTENDING PRESENCE: Dr. Brien Yang MD, the attending radiologist, was present from the beginning to the end of the procedure. SEDATION: The patient did not require conscious sedation for the procedure. TECHNIQUE: The risks, benefits and alternatives were discussed and informed consent was obtained. Prior to beginning the procedure, [place] Protocol was performed to confirm the patient's identity and the planned procedure. Sterile barriers used during the procedure included cap, mask, hand hygiene, sterile gloves, and sterile drape. Chloraprep was used for cutaneous antisepsis. The patient was placed supine on the procedure table. The left knee joint was localized with ultrasound guidance. Local anesthesia was achieved with subcutaneous injection of 1% lidocaine 2 mL. An 18-gauge needle was then introduced into the joint under imaging guidance. 13 mL of clear straw-colored fluid was aspirated. The needle was removed. The skin was cleansed with hydrogen peroxide, and a bandage was placed. Complication: None Type: None ESTIMATED BLOOD LOSS: None CONDITION: Stable condition. DISCHARGED TO: Home FINDINGS: Initial sonographic images demonstrate a small left knee effusion. Imaging confirm appropriate position of the needle tip. 13 mL of clear straw-colored fluid was aspirated. IMPRESSION: 1. Left knee joint aspiration under ultrasound guidance. 13 mL of clear straw-colored fluid was aspirated and sent for cell count, crystal evaluation, Gram stain, culture, and Synovasure. Electronically signed by: Brien Yang MD us Tracey Lund NP IMG US PROCEDURES Final R esult * XR Hips Bilateral 3 or 4 Views (01/20/2025 1:55 PM CDT) Anatomical Region Laterality Modality Lower Extremities, Hip, Pelvis Bilateral C omputed Radiography 01/20/2025 3:13 PM CDT Impressions 01/20/2025 3:13 PM CDT Mild bilateral hip osteoarthritis. Electronically signed by: Jimmie Fernandez M.D. Narrative 01/20/2025 3:13 PM CDT EXAMINATION: XR HIPS BILATERAL 3 OR 4 VW HISTORY: Hip pain FINDINGS: 3 views of the bilateral hips were performed without comparison. There is partially imaged lumbar spine degenerative disc disease. There is no acute fracture. There is mild bilateral hip osteoarthritis. Procedure Note Jimmie Fernandez MD PhD - 01/20/2025 EXAMINATION: XR HIPS BILATERAL 3 OR 4 VW HISTORY: Hip pain FINDINGS: 3 views of the bilateral hips were performed without comparison. There is partially imaged lumbar spine degenerative disc disease. There is no acute fracture. There is mild bilateral hip osteoarthritis. IMPRESSION: Mild bilateral hip osteoarthritis. Electronically signed by: Jimmie Fernandez M.D. Tracey Lund NP IMG XR PROCEDURES Final R esult * XR Knee Right 3 Views (01/20/2025 12:57 PM CDT) Anatomical Region Laterality Modality Lower Extremities, Knee Right Computed Radiography 01/20/2025 1:18 PM CDT Impressions 01/20/2025 1:18 PM CDT Bilateral total knee arthroplasty in near-anatomic position. Electronically signed by: Leroy Cortez M.D. Narrative 01/20/2025 1:18 PM CDT EXAMINATION: XR KNEE LEFT 3 VIEWS, XR KNEE RIGHT 3 VIEWS HISTORY: Bilateral knee pain, arthroplasty COMPARISON: None FINDINGS: Bilateral total knee arthroplasty in near-anatomic position. No periprosthetic fracture or significant periprosthetic osteolysis. Possible small left knee effusion. No definite right knee effusion. There are scattered atherosclerotic vascular calcifications. Procedure Note Leroy Cortez MD - 01/20/2025 EXAMINATION: XR KNEE LEFT 3 VIEWS, XR KNEE RIGHT 3 VIEWS HISTORY: Bilateral knee pain, arthroplasty COMPARISON: None FINDINGS: Bilateral total knee arthroplasty in near-anatomic position. No periprosthetic fracture or significant periprosthetic osteolysis. Possible small left knee effusion. No definite right knee effusion. There are scattered atherosclerotic vascular calcifications. IMPRESSION: Bilateral total knee arthroplasty in near-anatomic position. Electronically signed by: Leroy Cortez M.D. Tracey Lund NP IMG XR PROCEDURES Final R esult * XR Knee Left 3 Views (01/20/2025 12:57 PM CDT) Anatomical Region Laterality Modality Lower Extremities, Knee Left Computed Radiography 01/20/2025 1:18 PM CDT Impressions 01/20/2025 1:18 PM CDT Bilateral total knee arthroplasty in near-anatomic position. Electronically signed by: Leroy Cortez M.D. Narrative 01/20/2025 1:18 PM CDT EXAMINATION: XR KNEE LEFT 3 VIEWS, XR KNEE RIGHT 3 VIEWS HISTORY: Bilateral knee pain, arthroplasty COMPARISON: None FINDINGS: Bilateral total knee arthroplasty in near-anatomic position. No periprosthetic fracture or significant periprosthetic osteolysis. Possible small left knee effusion. No definite right knee effusion. There are scattered atherosclerotic vascular calcifications. Procedure Note Leroy Cortez MD - 01/20/2025 EXAMINATION: XR KNEE LEFT 3 VIEWS, XR KNEE RIGHT 3 VIEWS HISTORY: Bilateral knee pain, arthroplasty COMPARISON: None FINDINGS: Bilateral total knee arthroplasty in near-anatomic position. No periprosthetic fracture or significant periprosthetic osteolysis. Possible small left knee effusion. No definite right knee effusion. There are scattered atherosclerotic vascular calcifications. IMPRESSION: Bilateral total knee arthroplasty in near-anatomic position. Electronically signed by: Leroy Cortez M.D. Tracey Lund RUG RECEIVING CLERK IMG XR PROCEDURES Final R esult * Differential, auto (01/18/2025 3:12 PM CDT) Pathologist [facility] Neutrophil abs 4.17 1.50 - 6.50 K/cumm Imm gran abs 0.02 0.00 - 0.10 K/cumm [facility] Lymphocyte abs 1.43 0.80 - 3.30 K/cumm [facility] Monocyte abs 0.60 0.20 - 0.80 K/cumm [facility] Eosinophil abs 0.19 0.00 - 0.50 K/cumm [facility] Basophil abs 0.09 0.00 - 0.10 K/cumm [facility] Neutrophil pct 64.2 % [facility] Comment: Interpretive Data Percent cell count reference ranges are not reported, since discordance with absolute values may lead to misinterpretation of CBC data. Current Interpretive Data was last revised on 2017. Imm gran pct 0.3 % [facility] Comment: Interpretive Data Percent cell count reference ranges are not reported, since discordance with absolute values may lead to misinterpretation of CBC data. Current Interpretive Data was last revised on 2017. Lymphocyte pct 22.0 % [facility] Comment: Interpretive Data Percent cell count reference ranges are not reported, since discordance with absolute values may lead to misinterpretation of CBC data. Current Interpretive Data was last revised on 2017. Monocyte pct 9.2 % [facility] Comment: Interpretive Data Percent cell count reference ranges are not reported, since discordance with absolute values may lead to misinterpretation of CBC data. Current Interpretive Data was last revised on 2017. Eosinophil pct 2.9 % [facility] Comment: Interpretive Data Percent cell count reference ranges are not reported, since discordance with absolute values may lead to misinterpretation of CBC data. Current Interpretive Data was last revised on 2017. Basophil pct 1.4 % [facility] Comment: Interpretive Data Percent cell count reference ranges are not reported, since discordance with absolute values may lead to misinterpretation of CBC data. Current Interpretive Data was last revised on 2017. Blood 01/18/2025 3:12 PM CDT 01/18/2025 6:36 PM CDT us Tracey Lund RUG RECEIVING CLERK LAB BLOOD ORDERABLES Nirmala l Result [facility] [address] [place] [address] * (ABNORMAL) CBC with auto differential (01/18/2025 3:12 PM CDT) WBC 6.50 3.80 - 9.90 K/cumm Hgb 14.3 13.0 - 17.5 g/dL [facility] Hct 43.8 38.9 - 50.3 % [facility] Plt 307 150 - 400 K/cumm [facility] MPV 10.6 9.1 - 12.3 fL [facility] RBC 4.54 4.30 - 5.80 M/cumm [facility] MCV 96.5(H) 81.3 - 96.4 fL [facility] MCH 31.5 27.1 - 33.3 pg [facility] MCHC 32.6 32.3 - 35.7 g/dL [facility] RDW CV 14.0 11.1 - 14.9 % [facility] RDW SD 49.7(H) 35.7 - 48.1 fL [facility] NRBC abs 0.00 0.00 - 0.01 K/cumm [facility] Blood 01/18/2025 3:12 PM CDT 01/18/2025 6:36 PM CDT Tracey Lund RUG RECEIVING CLERK LAB BLOOD ORDERABLES Nirmala l Result Performing Organization Address City/[facility]/ZIP Co de Phone Number [address] [place] [address] * Erythrocyte sedimentation rate (01/18/2025 3:12 PM CDT) Erythrocyte sedimentation rate 13 1 - 20 mm/hr Blood 01/18/2025 3:12 PM CDT 01/18/2025 6:36 PM CDT Tracey Lund RUG RECEIVING CLERK LAB BLOOD ORDERABLES Nirmala l Result Performing Organization Address [facility] Co de Phone Number [address] [address] * CRP (acute phase) (01/18/2025 3:12 PM CDT) Pathologist [facility] CRP 0.6 <=10.0 mg/L Blood 01/18/2025 3:12 PM CDT 01/18/2025 6:36 PM CDT Tracey Lund RUG RECEIVING CLERK LAB BLOOD ORDERABLES Nirmala l Result Performing Organization Address City/[facility] Co de Phone Number [address] [address] from Last 3 Months Insurance [facility] MEDICARE ADVANTAGE [facility] [address] MEDICARE ADVANTAGE Care Teams Supervisor Newspaper Deliveries Relationship Specialty Start Date End Date Jett Jacobson DO [address] [place] [address] PCP - General Family Medicine 02/27/21 Nestor Hansen Jr., MD Medical Oncologist/Product Marketing Intern Medical Oncology 12/26/17 Ryan Campbell Primary Entry Clerk 01/14/25
[2025-01-28 11:53] LABS: Alanine Aminotransferase 27 U/L (6-50); Albumin Level 4.3 g/dL (3.5-5.1); Alkaline Phosphatase 65 U/L (38-126); Anion Gap 7 mmol/L (4-12); Aspartate Amino Transferase 29 U/L (17-59); Bilirubin,Total 0.4 mg/dL (0.2-1.3); Blood Urea Nitrogen 13 mg/dL (9-20); CRP < 0.5 mg/dL (<1.0); Calcium 8.7 mg/dL (8.4-10.2); Carbon Dioxide 29 mmol/L (22-30); Chloride 104 mmol/L (98-107); Estimated Glomerular Filt Rate > 60; Glucose 97 mg/dL (65-110); Potassium 4.0 mmol/L (3.4-5.0); Sodium 140 mmol/L (137-145); Total Protein 7.4 g/dL (6.3-8.2)
[2025-01-28 12:04] LABS: Iron 89 ug/dL (49-181); Percent Iron Saturation 23 % (20-50)
[2025-01-28 12:32] LABS: Ferritin 14.60 ng/mL (11.1-264)
== END 2025-01-28 11:08 | disposition home or self-care (01) ==
LOC: ANHLAB 11:08
PROVIDERS: PCP Student in an Organized Health Care Education/Training Program; Visit Provider Nurse Practitioner
DX: K21.9 Gastro-esophageal reflux disease without esophagitis (principal); K51.90 Ulcerative colitis, unspecified, without complications; K51.50 Left sided colitis without complications
CPT/HCPCS: 36415; 80053; 82728; 83540; 83550; 85027; 85652; 86140

== ENCOUNTER 2025-02-02 10:04 | Outpatient (CLI) | payer MEDICARE, SELFPAY ==
--- OUTSIDE RECORDS SUMMARY | 2025-02-02 10:52 | XMS_ITS | Clinical Summary ---
Author Organization [facility] [address] Address [address] [place] [address] Care Team Providers Care Sandblaster Stone Name Role Phone Tyrone Cantrell MD, Nestor Unavailable [phone] Jett Jacobson DO Primary Care Provide r [...] by mouth 2 (two) times a day Active lisinopriL (PRINIVIL,ZESTR IL) 20 mg tablet 5 Active ezetimibe (ZETIA) 10 mg tablet Take 1 tablet (10 mg total) by mouth daily Active metoprolol XL (TOPROL-XL) 50 mg extended release tablet Take 1 tablet (50 mg total) by mouth daily Active tadalafiL (CIALIS) 20 mg tablet TAKE [...] Encounters Date Type Department Care Team Description 02/01/2025 Results Follow-Up [facility] Orthopaedic Surgery [address] [place] [address] 2nd [address] [place] [address] Tracey Lund NP [place] Bone Imaging 3 Phase 01/22/2025 7:20 AM CDT - 01/22/2025 11:59 PM T Hospital Encounter [facility] [address] [place] [address] Discharge Disposition: Discharge to home or self care 01/22/2025 7:20 AM CDT - 01/22/2025 11:59 PM T Hospital Encounter [facility] [address] [place] [address] 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; Pain in both knees, unspecified chronicity Discharge Disposition: Discharge to home or self care 01/22/2025 7:19 AM CDT - 01/22/2025 11:59 PM CDT Hospital Encounter [facility] Radiology [address] [id number] Rajeev Ferrer MD Ponkowski, Brien Sampson MD Aftercare following right knee joint replacement surgery; Right knee pain, unspecified chronicity Discharge Disposition: Discharge to home or self care 01/20/2025 1:45 PM CDT Ancillary Procedure Radiology - [address] [place] [address] [address] [place] [address] 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 01/20/2025 1:15 PM CDT Office Visit [facility] Medicine Orthopaedic Surgery [address] [place] [address] 2[address] [place] [address] Tracey Lund NP 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 (Primary Dx); Pain in both knees, unspecified chronicity; Hip pain, bilateral; Aftercare following right knee joint replacement surgery; Right knee pain, unspecified chronicity 01/20/2025 12:45 PM CDT Ancillary Procedure Radiology - [address] [facility] [address] [place] [address] 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; Pain in both knees, unspecified chronicity 01/18/2025 3:00 [place] [address] 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; [...] on file 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 Electronically signed by: Lazara Avalos M.D. Tracey Lund NP [facility] [place] PROCEDURES Final R esult * Crystal Analysis, Body Fluid (01/22/2025 9:00 AM CDT) Specimen type, fld Synovial Comment:Testing performed by : [facility], [address] [place] [address]., [id number] Crystals Not Present Not Present [facility] Comment:Testing performed by : [facility], [address] [place] [address]., [id number] Fluid 01/22/2025 9:00 AM CDT 01/22/2025 10:01 AM CDT Narrative [facility] - 01/22/2025 11:48 AM CDT Left knee us Tracey Lund GYMNASTICS COACH LAB BODY FLUIDS AND STOOL S ORDERABLES Final Result Performing Organization Address City/[facility]/ZIP Co de Phone Number [facility] [address] [email or web address] [address] * Cell Differential, Body Fluid (01/22/2025 9:00 [...] 9:00 AM CDT 01/22/2025 9:19 AM CDT us Tracey Lund GYMNASTICS COACH LAB BODY FLUIDS AND STOOL S ORDERABLES Final Result [facility] [address] [email or web address] [facility] [place] [address] * Cell count w/rflx diff, body fluid (01/22/2025 9:00 AM CDT) Specimen type, fld Synovial Color, fld Straw [facility] Clarity, fld Clear [facility] Nucleated cells, fld 524 /cumm [facility] Comment: Interpretive Data Unless otherwise specified, the [...] 10:17 AM CDT Left knee Tracey Lund NP LAB BODY FLUIDS AND STOOL S ORDERABLES Final Result Performing Organization Address [facility] Co de Phone Number [facility] [address] [email or web address] [facility] [address] [employer], [place] [id number] * Aerobic and anaerobic culture and gram stain Synovial fluid Knee, left (01/22/2025 9:00 AM CDT) Direct Specimen Exam Stain: Rare polymorphonuclear leukocytes seen. No organisms seen. Comment:Testing performed by : [facility], [address] [place] [address]., [id number] Report Final Report: No growth [facility] Comment:Testing performed by : [facility], [address] [place] [address]., [id number] Synovial fluid (Knee, left) 01/22/2025 9:00 AM CDT 01/22/2025 10:08 AM CDT Narrative [facility] - 01/27/2025 8:47 AM CDT Results may be compromised by the low volume of specimen received. Tracey Lund NP LAB MICROBIOLOGY - GENERA L ORDERABLES Final Result Performing Organization Address [facility] Co de Phone Number [facility] [address] [email or web address] [facility] [address] [place], [place] [id number] * US Guided Aspiration or Injection of [...] was obtained. Prior to beginning the procedure, Murray Protocol was performed to confirm the patient's [...] was obtained. Prior to beginning the procedure, Murray Protocol was performed to confirm the patient's [...] by: Leroy Cortez M.D. Tracey Lund NP IM XR PROCEDURES Final R esult * XR [...] signed by: Leroy Cortez M.D. Tracey Lund GYMNASTICS COACH IMG XR PROCEDURES Final R esult * Differential, auto (01/18/2025 3:12 PM CDT) Pathologist [facility] Neutrophil abs 4.17 1.50 - 6.50 K/cumm Imm gran abs 0.02 0.00 - 0.10 K/cumm [facility] Lymphocyte abs 1.43 0.80 - 3.30 K/cumm [facility] Monocyte abs 0.60 0.20 - 0.80 K/cumm [facility] Eosinophil abs 0.19 0.00 - 0.50 K/cumm [facility] Basophil abs 0.09 0.00 - 0.10 K/cumm [facility] Neutrophil pct 64.2 % [facility] Comment: Interpretive Data Percent cell count reference ranges are not reported, since discordance with absolute values may lead to misinterpretation of CBC data. Current Interpretive Data was last revised on 2017. Imm gran pct 0.3 % [facility] Comment: Interpretive Data Percent cell count reference ranges are not reported, since discordance with absolute values may lead to misinterpretation of CBC data. Current Interpretive Data was last revised on 2017. Lymphocyte pct 22.0 % [facility] Comment: Interpretive Data Percent cell count reference ranges are not reported, since discordance with absolute values may lead to misinterpretation of CBC data. Current Interpretive Data was last revised on 2017. Monocyte pct 9.2 % [facility] Comment: Interpretive Data Percent cell count reference ranges are not reported, since discordance with absolute values may lead to misinterpretation of CBC data. Current Interpretive Data was last revised on 2017. Eosinophil pct 2.9 % [facility] Comment: Interpretive Data Percent cell count reference ranges are not reported, since discordance with absolute values may lead to misinterpretation of CBC data. Current Interpretive Data was last revised on 2017. Basophil pct 1.4 % [facility] Comment: Interpretive Data Percent cell count reference ranges are not reported, since discordance with absolute values may lead to misinterpretation of CBC data. Current Interpretive Data was last revised on 2017. Blood 01/18/2025 3:12 PM CDT 01/18/2025 6:36 PM CDT us Tracey Lund GYMNASTICS COACH LAB BLOOD ORDERABLES Nirmala diamond Result [facility] [address] [facility] Department [place] [address] * (ABNORMAL) CBC with auto differential (01/18/2025 3:12 PM CDT) Pathologist [facility] WBC 6.50 3.80 - 9.90 K/cumm Hgb 14.3 13.0 - 17.5 g/dL [facility] Hct 43.8 38.9 - 50.3 % [facility] Plt 307 150 - 400 K/cumm [facility] MPV 10.6 9.1 - 12.3 fL [facility] RBC 4.54 4.30 - 5.80 M/cumm [facility] MCV 96.5(H) 81.3 - 96.4 fL [facility] MCH 31.5 27.1 - 33.3 pg [facility] MCHC 32.6 32.3 - 35.7 g/dL [facility] RDW CV 14.0 11.1 - 14.9 % [facility] RDW SD 49.7(H) 35.7 - 48.1 fL [facility] NRBC abs 0.00 0.00 - 0.01 K/cumm [facility] Blood 01/18/2025 3:12 PM CDT 01/18/2025 6:36 PM CDT Tracey Lund GYMNASTICS COACH LAB BLOOD ORDERABLES Nirmala l Result Performing Organization Address City/[facility]/ZIP Co de Phone Number [address] [place] [address] * Erythrocyte sedimentation rate (01/18/2025 3:12 PM CDT) Erythrocyte sedimentation rate 13 1 - 20 mm/hr Blood 01/18/2025 3:12 PM CDT 01/18/2025 6:36 PM CDT Tracey uLnd GYMNASTICS COACH LAB BLOOD ORDERABLES Nirmala l Result Performing Organization Address [facility] Co de Phone Number [address] [place] [address] * CRP (acute phase) (01/18/2025 3:12 PM CDT) CRP 0.6 <=10.0 mg/L Blood 01/18/2025 3:12 PM CDT 01/18/2025 6:36 PM CDT Tracey Lund GYMNASTICS COACH LAB BLOOD ORDERABLES Nirmala l Result Performing Organization Address City/[facility] Co de Phone Number [address] [place] [address] from Last 3 Months Insurance [facility] MEDICARE ADVANT[facility] Address: [address] [address] [place] [address] [facility] MEDICARE ADVANTAGE [facility] Address: [address] [address] [place] [address] [facility] MEDICARE ADVANTAGE [facility] Address: [address] [address] [place] [address] Care Teams Sandblaster Stone Relationship Specialty Start Date End Date Jett Jacobson DO NPI: [id number] [place] [address] PCP - General Family Medicine 02/27/21 Nestor Hansen Jr., MD Medical Oncologist/Supervisor Pressing Department Medical Oncology 12/26/17 Ryan Campbell Primary Military Source Operations Specialist 01/14/25
--- OUTSIDE RECORDS SUMMARY | 2025-02-02 10:52 | XMS_ITS | Clinical Summary ---
Author Organization [facility] Address [address] [place] [address] Care Team Providers Care Instructor Of Sociology Name Role Phone Nadine Huang Elise DO Primary Care Provider + Allergies Active Allergy Reactions Criticality Noted Date Comments Ibuprofen Other (see comment) 05/16/2022 Tetanus Toxoid Rash Medium 12/07/2019 Tetanus Toxoid, Adsorbed Other (see comment) Low Tetanus Toxoid-Containing Vaccines Rash Low 05/16/2022 Medications Multiple Vitamin (MULTIVITAMIN) capsule Take 1 capsule by mouth daily. Active Ascorbic Acid (VITAMIN C) 100 MG tablet Take 1 tablet (100 mg total) by mouth daily. Active acetaminophen (TYLENOL) 500 MG tablet Take 1 tablet (500 mg total) by mouth every 6 (six) hours as needed for Pain. Active diphenhydrAMINE- APAP, sleep, (TYLENOL PM EXTRA STRENGTH OR) 1 tablet(s), Oral, qhs, 10 tablet(s), Tablet(s), 0 5 Active ELIQUIS 5 MG tablet Take 1 tablet (5 mg total) by mouth 2 (two) times daily. 5 Active metoprolol succinate ER (TOPROL-XL) 50 MG 24 hr tablet Take 1 tablet (50 mg total) by mouth daily. 5 Active lisinopril (PRINIVIL) 10 MG tablet Take 1 tablet (10 mg total) by mouth daily. 5 Active ezetimibe (ZETIA) 10 MG tablet Take 1 tablet (10 mg total) by mouth daily. Active diphenhydrAMINE (BENADRYL) 25 MG capsule Take 1 capsule (25 mg total) by mouth nightly as needed for Allergies. Active tadalafil (CIALIS) 20 MG tabletIndication s:Erectile dysfunction, unspecified erectile dysfunction type TAKE 1/2 TO 1 (ONE-HALF TO ONE) TABLET BY MOUTH ONCE DAILY NEEDED FOR ERECTILE DYSFUNCTION 30 tablet Active Active Problems Problem Noted Date Diagnosed Date Chronic atrial fibrillation, unspecified ([facility]) 12/29/2024 Dupuytren's contracture of left hand 02/19/2023 Atherosclerosis of aorta 11/13/2022 Overview (11/13/2022): CTA from 11/09/22 Tortuous aorta 11/13/2022 Overview (11/13/2022): CTA on 11/09/22 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 Neuropathy 02/27/2021 Other pruritus 02/27/2021 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 Skin lesion of scalp 02/27/2021 History of COVID-19 06/09/2020 Polyarthralgia 06/09/2020 Prediabetes 04/08/2020 Onychomycosis 04/08/2020 Positive ALIDA (antinuclear antibody) 04/08/2020 Erectile dysfunction, unspecified erectile dysfu nction type 12/09/2019 Essential hypertension 12/09/2019 BMI 27.0-27.9,adult 12/09/2019 Hyperlipidemia, unspecified hyperlipidemia type 12/09/2019 Ulcerative colitis without c omplications, unspecified location ([facility]) 12/09/2019 Recurrent kidney stones 12/09/2019 Palpitations 02/25/2018 Gastrointestinal stromal tumor ([facility]) 12/25/2017 Resolved Problems Problem Noted Date Diagnosed Date Resolved Date Hoarseness 02/27/2021 07/12/2021 Encounters Date Type Department Care Team Description 01/25/2025 Telephone [facility] [place] [address] [place] [address] Tito Booker PA Appointment Request 12/29/2024 10:00 AM CDT Office Visit [facility] Family & Internal Medicine [address] [phone] Nadine Huang P, DO Knee Pain (Patient c/o L knee pain x 2 months, R knee x 1 week. L knee is swollen, patient has been using ice and elevation. Patient's ortho who performed b/l replacements has since retired. ); Pain (Patient is having hip and neck/shoulder pain. Would like to discuss massage therapy.); Gi Problem (Patient would like to discuss esophageal dilation.) 12/29/2024 Travel 2024 Scan [employer] HEALTH INFO SRVCS Scanned, [facility] 11/16/2024 Telephone [facility] Internal [address] [address] Nadine Huang P, DO Information from Last 3 Months Immunizations Immunization Administration Dates Next Due Flublok (Quadrivalent) 02/12/2019 Flulaval Quad (Multi-Dose Vial) 02/11/2018 Fluzone 6 Months+ Quad (0.5 mL Prefilled Syringe) 02/19/2023,02/16/2022,02/13/2021 Fluzone High Dose - >Age 65 (Prefilled Syringe) 03/02/2020 Influenza (Generic) 02/12/2019, 7,01/30/2017,2014,12/23/2013,12/30/2012,01/02/2012,0 12/19/2010,01/18/2010,02/03/2008, 000 Influenza Adult (Generic) 03/02/2020,02/11/2018 PFIZER COVID-19 (ORIGINAL FORMULATION, PURPLE CAP) mRNA, LNP-S, PF, 30 MCG/0.3 ML DOSE 08/12/2020,08/01/2020,06/24/2020,2020 Pneumococcal (Pneumovax 23) 11/17/2018 Pneumococcal (Prevnar 13) 12/07/2019,08/31/2015 Zoster (Zostavax) 85294 Unt/0.65Ml 01/30/2017, Family History Medical History Relation Comments Hypertension Father Stroke Father Cancer Mother Diabetes Mother No Known Problems Sister 1 Dementia Sister 2 Relation Status Comments Father Mother Sister 1 Alive Sister 2 Alive Social History Tobacco Use Types Packs/Day Years Used Date Smoking Tobacco: Former Cigarettes Q uit: 12/06/1973 Pipe Cigars Smokeless Tobacco: Never Tobacco Cessation:Counseling Given: No Comments:Former smoker Alcohol Use Standard Drinks/Week Comments Yes 3.3 (1 standard drin k = 0.6 oz pure alcohol) Social Drinker , a couple of times a week AUDIT-C Answer Date Recorded Q1: How often do you have a drink containing alc ohol? 2-3 times a week 11/30/2023 Q2: How many drinks containi ng alcohol do you have on a typical day when you are drinking? 1 or 2 11/30/2023 Q3: How often do you have si x or more drinks on one occasion? Never 11/30/2023 PHQ-2 Answer Date Recorded Patient Health Questionnaire-2 Score 0 09/08/2024 Sex and Gender Information Value Date Recorded Sex Assigned at Male 09/08/2024 11:34 AM CDT Legal Sex Male 1:50 PM CDT Gender Identity Male 09/08/2024 11:34 AM CDT Sexual Orientation Not on file Last Filed Vital Signs Vital Sign Reading Time Taken Comments Blood Pressure 138/62 12/29/2024 10:06 AM CDT Pulse 70 12/29/2024 10:06 AM CDT Temperature 36.9 C (98.4 F) 12/29/2024 10:06 AM CDT Respiratory Rate 16 09/08/2024 11:3 5 AM CDT Oxygen Saturation 98% 12/29/2024 10: 06 AM CDT Inhaled Oxygen Concentration - - Weight 84.3 kg (185 lb 14.4 oz) 025 10:06 AM CDT Height 172.7 cm (5' 8) 12/29/2024 10:0 6 AM CDT Body Mass Index 28.27 12/29/2024 10:06 AM CDT Plan of Treatment Upcoming Encounters Date Type Department Care Team (Late st Contact Info) Description 02/05/2025 10:00 AM CDT Laboratory Only [facility] [address] [phone] Nadine Huang, DO [address] [place] [address] 02/12/2025 11:20 AM CDT Office Visit [facility] Family & Internal Medicine [facility] [address] [place] [address] Nadine Huang, DO [address] [place] [address] 02/24/2025 2:40 PM CDT Office Visit [facility] Orthopedic & Sports Medicine [facility] [address], [place] [phone] Tito Booker PA [address] [place] [address] Health Maintenance Due Date Last Done Comments ASCVD Statin 1950 RSV Immunization or 60+ Years (1 - Risk 60-74 years 1-dose series) 2012 Zoster Vaccines (2 of 3) 03/27/2017 01/30/2017, 12/29 ASCVD LDL 11/18/2024 11/19/2023, 05/31, 10/29/2022, Additional history exists Annual Medicare Wellness Visit 12/03/2024 12/03/2023, 02/13/2021 COVID-19 Vaccine ( season) 2024 08/12/2020, 08/01/2020, 06/24/2020, Additional history exists Influenza Adult (#1) 2025 02/19/2023, 02/16/2022, 02/13/2021, Additional history exists Colorectal Cancer Screening Colonoscopy (10 Years) 03/26/2025 03/26/2022, 04/19/2016, 08/11/2009 DTaP, Tdap and Td Vaccines (1 - Tdap) 02/07/2099 Postponed from 12/17/1971 (Patient Refused) Pneumococcal Vaccine: 50+ Years Completed 12/07/2019, 11/17/2018, 08/31/2015 Hepatitis C Completed 10/29/2022 AAA SCREENING Completed 11/09/2022, 02/22/2021 PHQ-2 (Physician [place]) Completed 09/08/2024 Meningococcal B Vaccine Aged Out No l onger eligible based on patient's age to complete this topic Meningococcal Vaccine Aged Out No marcela jorge eligible based on patient's age to complete this topic RSV Immunizations Under 20 Months Aged Out No longer eligible based on patient's age to complete this topic Procedures Procedure Name Priority Date/Time Associated Diagnosis Comments LIPID PANEL Routine 11/19/2023 10:42 AM CDT Hyperlipidemia, unspecified hyperlipidemia type CTA CHEST Routine 11/09/2022 2:29 PM CDT Aneurysm of descending thoracic aorta without rupture HEPATITIS C ANTIBODY W/RFX TO HCV RNA Routine 10/29/2022 2:35 PM CDT Positive ALIDA (antinuclear antibody) Prediabetes Hyperlipidemia, unspecified hyperlipidemia type Essential hypertension Need for hepatitis C screening test Annual physical exam COLONOSCOPY GENERIC (SCAN ORDER) 03/26/2022 from Last 3 Months or Most Recently Relevant to Health Maintenance Results * (ABNORMAL) LIPID PANEL (11/19/2023 10:42 AM CDT) CHOLESTEROL 193 <200 MG/DL 11/19/2023 4:12 PM CDT [facility] TRIGLYCERIDES 107 <150 MG/DL 11/19/2023 4:12 PM CDT [facility] HDL 53 >40 MG/DL 11/19/2023 4:12 PM CDT [facility] LDL-C 119(H) <100 MG/DL 11/19/2023 4:12 PM CDT [facility] VLDL CALCULATION 21 5 - 28 MG/DL 11/19/2023 4:12 PM CDT [facility] CHOL/HDL RATIO 3.6 0.0 - 4.0 11/19/2023 4:12 PM CDT [facility] LDL/HDL 2.2(H) 0.41 - 2.13 11/19/2023 4:12 PM CDT [facility] NON HDL CHOLESTEROL 140(H) <140 MG/DL 11/19/2023 4:12 PM CDT [facility] 11/19/2023 10:4 2 AM CDT Johnson Viera MD LABORATORY Final Result [facility] [address] [place] [address], * CTA CHEST (11/09/2022 2:29 PM CDT) Anatomical Region Laterality Modality Chest Computed Tomogra phy 11/09/2022 4:04 PM CDT Impressions 11/09/2022 4:10 PM CDT IMPRESSION: 1. No evidence of thoracic aortic aneurysm. 2. Tortuous atherosclerotic thoracic aorta. 3. No suspicious lung mass or consolidation. 4. Coronary artery disease. Ordered By: NADINE HUANG Interpreted By: Jr Araiza MD, 11/09/2022 4:04 PM Narrative 11/09/2022 4:10 PM CDT EXAMINATION: CTA CHEST WITH AND WITHOUT CONTRAST CLINICAL HISTORY: Aortic aneurysm. Aneurysm of descending thoracic aorta without rupture seen COMPARISON: Chest x-ray on 10/22/2022. TECHNIQUE: Computed tomography angiography was performed of the chest before and after administration of intravenous contrast, 96 mL Isovue-370, according to routine protocol. 3-D volume rendered images and maximum intensity projection images were obtained at a separate dedicated independent 3-D workstation. A dose lowering technique was used for this procedure, which may include, but is not limited to, dose reduction technique, automated exposure control, the use of iterative reconstruction, and ALARA (As Low As Reasonably Achievable) / Image Gently techniques. FINDINGS: VASCULAR FINDINGS: No intramural hematoma, dissection, penetrating atherosclerotic ulcer or rupture. Tortuous atherosclerotic thoracic aorta. Aortic root: Sinus of Valsalva, 3.8 cm. No effacement of sinotubular junction. Ascending thoracic aorta: 3.6 cm. Aortic arch: 2.8 cm. Descending thoracic aorta: 2.7 cm. NONVASCULAR FINDINGS: Airways intact. No pneumothorax. No pleural effusion. Expiration images chest. Dependent atelectasis. No suspicious lung mass or consolidation. Coronary artery disease. No mediastinal hematoma. Nonobstructing bilateral nephrolithiasis. Accessory bilateral renal arteries. Spondylosis. Procedure Note Jr Araiza MD - 11/09/2022 EXAMINATION: CTA CHEST WITH AND WITHOUT CONTRAST CLINICAL HISTORY: Aortic aneurysm. Aneurysm of descending thoracic aortawithout rupture seen COMPARISON: Chest x-ray on 10/22/2022. TECHNIQUE: Computed tomography angiography was performed of the chestbefore and after administration of intravenous contrast, 96 mL Isovue-370,according to routine protocol. 3-D volume rendered images and maximumintensity projection images were obtained at a separate dedicatedindependent 3-D workstation. A dose lowering technique was used for thisprocedure, which may include, but is not limited to, dose reductiontechnique, automated exposure control, the use of iterativereconstruction, and ALARA (As Low As Reasonably Achievable) / Image Gentlytechniques. FINDINGS: VASCULAR FINDINGS: No intramural hematoma, dissection, penetrating atherosclerotic ulcer orrupture. Tortuous atherosclerotic thoracic aorta. Aortic root: Sinus of Valsalva, 3.8 cm. No effacement of sinotubularjunction. Ascending thoracic aorta: 3.6 cm. Aortic arch: 2.8 cm. Descending thoracic aorta: 2.7 cm. NONVASCULAR FINDINGS: Airways intact. No pneumothorax. No pleural effusion. Expiration imageschest. Dependent atelectasis. No suspicious lung mass or consolidation.Coronary artery disease. No mediastinal hematoma. Nonobstructing bilateralnephrolithiasis. Accessory bilateral renal arteries. Spondylosis. IMPRESSION: 1. No evidence of thoracic aortic aneurysm. 2. Tortuous atherosclerotic thoracic aorta. 3. No suspicious lung mass or consolidation. 4. Coronary artery disease. Ordered By: NADINE HUANG Interpreted By: Jr Araiza MD, 11/09/2022 4:04 PM us Nadine Huang DO CT Final Re sult * HEPATITIS C ANTIBODY W/RFX TO HCV RNA ([facility] ONLY) (10/29/2022 2:35 PM CDT) HEPATITIS C AB Non Reactive Non Reacti [facility] 1 INTERPRETATION Comment [facility] 1 Comment: Not infected with HCV unless early or acute infection is suspected (which may be delayed in an immunocompromised individual), or other evidence exists to indicate HCV infection. 10/29/2022 2:35 PM CDT 10/29/2022 Narrative [facility] - 11/01/2022 4:10 PM CDT Performed at: [address] [place], [place] [id number] Airplane Mechanic: Jr Doyle PhD, Phone: [phone] us Nadine Huang DO LABORATORY Final Re sult Performing Organization Address [facility]/State/ZIP Co de Phone Number [facility] [address] [place] [address] [facility]CO 1 * COLONOSCOPY GENERIC (03/26/2022) 03/26/2022 us [facility] Scanned SCANNING Final Resu lt from Last 3 Months or Most Recently Relevant to Health Maintenance Insurance MEDICARE Care Teams Instructor Of Sociology Relationship Specialty Start Date End Date Nadine Huang DO [address] [place] [phone] PCP - General FAMILY PRACTICE 12/07/19
--- OUTSIDE RECORDS SUMMARY | 2025-02-02 10:52 | XMS_ITS | Encounter Summary ---
Author Organization [facility] Address [address] [place] [address] Phone Care Team Providers Care Brush Washer Name Role Phone Tyrone Cantrell MD, Nestor Unavailable [phone] Jett Jacobson DO Primary Care Provide r Ryan Campbell Unavailable Unavailable Encounter Details Date Type Department Care Team (Latest Contact Info) Description 02/01/2025 Results Follow-Up [facility] Medicine Orthopaedic Surgery [address] [place] [address] Tracey Lund NP [address] [place] [address] [place] Bone Imaging 3 Phase Social History Tobacco Use Types Packs/Day Years [...] on file 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 Aspiration at this point are negative. documented in this encounter Plan of Treatment Not on file documented as of this encounter Visit Diagnoses Not on filedocumented in this encounter Care Teams Brush Washer Relationship Specialty Start Date End Date Jett Jacobson DO [address] [place] [phone] PCP - General Family Medicine 02/27/21 Nestor Hansen Jr., MD Medical Oncologist/Clinical Laboratory Director Medical Oncology 12/26/17 Ryan Campbell Primary Oxygraph Operator 01/14/25 documented as of this encounter
[2025-02-04 07:08] LABS: Calprotectin, Fecal 37 ug/g (0-120)
== END 2025-02-02 10:05 | disposition home or self-care (01) ==
PROVIDERS: PCP Student in an Organized Health Care Education/Training Program; Visit Provider Nurse Practitioner
DX: K21.9 Gastro-esophageal reflux disease without esophagitis (principal); K51.50 Left sided colitis without complications
CPT/HCPCS: 83993

== ENCOUNTER 2025-02-11 00:39 | Day surgery (SDC) | payer MEDICARE, SELFPAY ==
[2025-02-03 11:18] VITALS: BMI 28.3
--- OUTSIDE RECORDS SUMMARY | 2025-02-11 00:41 | XMS_ITS | Encounter Summary ---
Author Organization [facility] Address [address] [place] [address] Phone Care Team Providers Care Fibreglass Laminator Name Role Phone Tyrone Cantrell MD, Nestor Unavailable [phone]- [phone] Jett Jacobson DO Primary Care Provide r Ryan Campbell Unavailable Unavailable Encounter Details Date Type Department Care Team (Latest Contact Info) Description 02/01/2025 Results Follow-Up [facility] Medicine Orthopaedic Surgery [address] [facility] 2[address] [place] [address] Tracey Lund NP [address] [place] [address] NM Bone Imaging 3 Phase [...] on file Legal Sex Male 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
--- OUTSIDE RECORDS SUMMARY | 2025-02-11 00:41 | XMS_ITS | Clinical Summary ---
Author Organization [facility] [address] Address [address] [place] [address] Care Team Providers Care Control Clerk Repairs Name Role Phone Tyrone Cantrell MD, Enstor Unavailable [phone] Jett Jacobson DO Primary Care Provide r [...] Department Care Team Description 02/01/2025 Results Follow-Up [facility] Orthopaedic Surgery [address] [place] [address] 2nd Floor [address] [place] [address] Tracey Lund NP [place] Bone Imaging 3 Phase 01/22/2025 7:20 AM CDT - 01/22/2025 11:59 PM T Hospital Encounter [facility] Imaging [address] [place] [address] Discharge Disposition: Discharge to home or self care 01/22/2025 7:20 AM CDT - 01/22/2025 11:59 PM T Hospital Encounter [facility] [address] [place] [address] 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; Pain in both knees, unspecified chronicity Discharge Disposition: Discharge to home or self care 01/22/2025 7:19 AM CDT - 01/22/2025 11:59 PM CDT Hospital Encounter [facility] Radiology [address] [phone] Rajeev Ferrer MD Ponkowski, Brien Sampson MD Aftercare following right knee joint replacement surgery; Right knee pain, unspecified chronicity Discharge Disposition: Discharge to home or self care 01/20/2025 1:45 PM CDT Ancillary Procedure Radiology - [address] [place] [address] [address] [place] [address] 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 01/20/2025 1:15 PM CDT Office Visit [facility] Medicine Orthopaedic Surgery [address] [place] [address] 2nd [address] [place] [address] Tracey Lund NP 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 (Primary Dx); Pain in both knees, unspecified chronicity; Hip pain, bilateral; Aftercare following right knee joint replacement surgery; Right knee pain, unspecified chronicity 01/20/2025 12:45 PM CDT Ancillary Procedure Radiology - [address] Orth[address] [facility] [address] [place] Karimi [address] 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; Pain in both knees, unspecified chronicity 01/18/2025 3:00 [place] [address] 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; [...] on file Legal Sex Male 3:15 AM RN RECOVERY Gender Identity Not on file Sexual Orientation [...] by: Lazara Avalos M.D. Tracey Lund NP [facility] NM PROCEDURES Final R esult * Crystal Analysis, Body Fluid (01/22/2025 9:00 AM CDT) Specimen type, fld Synovial Comment:Testing performed by : [facility], [address] [place] [address]., [id number] Crystals Not Present Not Present NICHO ROCKWELL Comment:Testing performed by : [facility], [address] [place] [address]., [id number] Fluid 01/22/2025 9:0 0 AM CDT 01/22/2025 10:01 AM CDT Narrative NICHO HARDINGCH - 01/22/2025 11:48 AM CDT Left knee us Traceydada Lund COMMERCIAL FOOD INSTRUCTOR LAB BODY FLUIDS AND STOOL S ORDERABLES Final Result Performing Organization Address City/[facility] Co de Phone Number [facility] HARDINGCH [phone] [employer] [place] [address] * Cell Differential, Body Fluid (01/22/2025 9:00 [...] 01/22/2025 9:19 AM CDT us Tracey Lund COMMERCIAL FOOD INSTRUCTOR LAB BODY FLUIDS AND STOOL S ORDERABLES Final Result Performing Organization Address City/[facility]/ZIP Co de Phone Number [facility]ING[facility] [address] [facility] [place] [address] * Cell count w/rflx diff, body fluid (01/22/2025 9:00 AM CDT) Specimen type, fld Synovial Color, fld Straw NICHO NEFFWCH Clarity, fld Clear NICHO ROCKWELL Nucleated cells, fld 524 /cumm NICHO ROCKWELL [...] 10:17 AM CDT Left knee Tracey Lund COMMERCIAL FOOD INSTRUCTOR LAB BODY FLUIDS AND STOOL S ORDERABLES Final Result Performing Organization Address [facility] Co de Phone Number [facility] [address] [facility] [employer] [place], [place] [id number] * Aerobic and anaerobic culture and gram stain Synovial fluid Knee, left (01/22/2025 9:00 AM CDT) Direct Specimen Exam Stain: Rare polymorphonuclear leukocytes seen. No organisms seen. Comment:Testing performed by : [facility], [address] [place] [address]., [id number] Report Final Report: No growth NICHO ROCKWELL Comment:Testing performed by : [facility], [address] [place] [address]., [id number] Synovial fluid (Knee, left) 01/22/2025 9:00 AM CDT 01/22/2025 10:08 AM CDT Narrative NICHO HARDINGCH - 01/27/2025 8:47 AM CDT Results may be compromised by the low volume of specimen received. Tracey Lund COMMERCIAL FOOD INSTRUCTOR LAB MICROBIOLOGY - GENERA L ORDERABLES Final Result Performing Organization Address [facility] Co de Phone Number [facility] [address] [facility] [place] [address] * US Guided Aspiration or Injection of [...] was obtained. Prior to beginning the procedure, Keene Protocol was performed to confirm the patient's [...] was obtained. Prior to beginning the procedure, Keene Protocol was performed to confirm the patient's [...] signed by: Brien Yang MD us Tracey Lnud NP IMG US PROCEDURES Final R esult [...] position. Electronically signed by: Leroy Cortez M.D. [facility] 01/20/2025 1:18 PM CDT EXAMINATION: XR KNEE [...] signed by: Leroy Cortez M.D. Tracey Lund COMMERCIAL FOOD INSTRUCTOR IMG XR PROCEDURES Final R esult * Differential, auto (01/18/2025 3:12 PM CDT) Pathologist [facility] Neutrophil abs 4.17 1.50 - 6.50 K/cumm Imm gran abs 0.02 0.00 - 0.10 K/cumm [facility] Lymphocyte abs 1.43 0.80 - 3.30 K/cumm [facility] Monocyte abs 0.60 0.20 - 0.80 K/cumm [facility] Eosinophil abs 0.19 0.00 - 0.50 K/cumm [facility] Basophil abs 0.09 0.00 - 0.10 K/cumm [facility] Neutrophil pct 64.2 % [facility] Comment: Interpretive Data Percent cell count reference ranges are not reported, since discordance with absolute values may lead to misinterpretation of CBC data. Current Interpretive Data was last revised on 2017. Imm gran pct 0.3 % [facility] Comment: Interpretive Data Percent cell count reference ranges are not reported, since discordance with absolute values may lead to misinterpretation of CBC data. Current Interpretive Data was last revised on 2017. Lymphocyte pct 22.0 % [facility] Comment: Interpretive Data Percent cell count reference ranges are not reported, since discordance with absolute values may lead to misinterpretation of CBC data. Current Interpretive Data was last revised on 2017. Monocyte pct 9.2 % [facility] Comment: Interpretive Data Percent cell count reference ranges are not reported, since discordance with absolute values may lead to misinterpretation of CBC data. Current Interpretive Data was last revised on 2017. Eosinophil pct 2.9 % [facility] Comment: Interpretive Data Percent cell count reference ranges are not reported, since discordance with absolute values may lead to misinterpretation of CBC data. Current Interpretive Data was last revised on 2017. Basophil pct 1.4 % [facility] Comment: Interpretive Data Percent cell count reference ranges are not reported, since discordance with absolute values may lead to misinterpretation of CBC data. Current Interpretive Data was last revised on 2017. Blood 01/18/2025 3:12 PM CDT 01/18/2025 6:36 PM CDT us Tracey Lund COMMERCIAL FOOD INSTRUCTOR LAB BLOOD ORDERABLES Nirmala diamond Result [facility] [address] [facility] [place] [address] * (ABNORMAL) CBC with auto differential (01/18/2025 3:12 PM CDT) Pathologist [facility] WBC 6.50 3.80 - 9.90 K/cumm Hgb 14.3 13.0 - 17.5 g/dL [facility] Hct 43.8 38.9 - 50.3 % [facility] Plt 307 150 - 400 K/cumm [facility] MPV 10.6 9.1 - 12.3 fL [facility] RBC 4.54 4.30 - 5.80 M/cumm [facility] MCV 96.5(H) 81.3 - 96.4 fL [facility] MCH 31.5 27.1 - 33.3 pg [facility] MCHC 32.6 32.3 - 35.7 g/dL [facility] RDW CV 14.0 11.1 - 14.9 % [facility] RDW SD 49.7(H) 35.7 - 48.1 fL [facility] NRBC abs 0.00 0.00 - 0.01 K/cumm [facility] Blood 01/18/2025 3:12 PM CDT 01/18/2025 6:36 PM CDT Tracey Lund COMMERCIAL FOOD INSTRUCTOR LAB BLOOD ORDERABLES Nirmala l Result Performing Organization Address City/[facility]/ZIP Co de Phone Number [address] [place] [address] * Erythrocyte sedimentation rate (01/18/2025 3:12 PM CDT) Erythrocyte sedimentation rate 13 1 - 20 mm/hr Blood 01/18/2025 3:12 PM CDT 01/18/2025 6:36 PM CDT Tracey Lund COMMERCIAL FOOD INSTRUCTOR LAB BLOOD ORDERABLES Nirmala l Result Performing Organization Address [facility] Co de Phone Number [address] [place] [address] * CRP (acute phase) (01/18/2025 3:12 PM CDT) CRP 0.6 <=10.0 mg/L Blood 01/18/2025 3:12 PM CDT 01/18/2025 6:36 PM CDT Tracey Lund COMMERCIAL FOOD INSTRUCTOR LAB BLOOD ORDERABLES Nirmala l Result Performing Organization Address [facility] Co de Phone Number [address] [place] [address] from Last 3 Months Insurance [facility] MEDICARE ADVANTAGE [facility] MEDICARE ADVANTAGE [facility] MEDICARE ADVANTAGE Care Teams Control Clerk Repairs Relationship Specialty Start Date End Date Jett Jacobson DO [address] [place] [address] [place] [address] PCP - General Family Medicine 02/27/21 Nestor Hansen Jr., MD Medical Oncologist/Bottom Painter Medical Oncology 12/26/17 Ryan Campbell Primary Contract Specialist 01/14/25
--- OUTSIDE RECORDS SUMMARY | 2025-02-11 00:41 | XMS_ITS | Clinical Summary ---
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 Resolved Problems Problem Noted Date Diagnosed Date Resolved Date Hoarseness 02/27/2021 07/12/2021 Encounters Date Type Department Care Team Description 02/05/2025 10:00 AM CDT Laboratory Only [facility] Family & Internal Medicine [address] [address] Nadine Huang DO 02/05/2025 Travel 01/28/2025 Scan HEALTH INFO SRVCS Scanned, Doc [facility] Lab (SCAN) 01/25/2025 Telephone [facility] Orthopedic & Sports Medicine [facility] [address] [place] [address] Tito Booker PA Appointment Request 12/29/2024 10:00 AM CDT Office Visit [facility] Family & Internal Medicine [address] [phone] Nadine Huang P, DO Knee Pain (Patient [...] discuss esophageal dilation.) 12/29/2024 Travel 2024 Scan [employer] HEALTH INFO SRVCS Scanned, Doc Med Group 11/16/2024 Telephone [facility] Family Internal [address] [address] Nadine Huang P, DO Information from Last [...] 11/17/2018 Pneumococcal (Prevnar 13) 12/07/2019,08/31/2015 Zoster (Zostavax) 08097 Unt/0.65Ml 01/30/2017, Family History Medical History Relation [...] Care Team (Late st Contact Info) Description 02/12/2025 11:20 AM CDT Office Visit [facility] Family & Internal Medicine [id number] [place] [address] Nadine Huang DO [address] [place] [address] 02/24/2025 2:40 PM CDT Office Visit [facility] Orthopedic & Sports Medicine - [place] [address] [place], [place] [phone] Tito Booker PA [address] [place], [place] [phone]- Health Maintenance Due Date Last Done Comments ASCVD Statin 1950 RSV Immunization or 60+ Years (1 - Risk 60-74 years 1-dose series) 2012 Zoster Vaccines (2 of 3) 03/27/2017 01/30/2017, 12/29 Annual Medicare Wellness Visit 12/03/2024 12/03/2023, 02/13/2021 [...] AAA SCREENING Completed 11/09/2022, 02/22/2021 PHQ-2 (Physician [place]) Completed 09/08/2024 Hepatitis A Vaccines Aged Out No long er eligible based on patient's age to complete this topic Meningococcal B Vaccine Aged Out No l onger eligible based on patient's age to complete this topic Meningococcal Vaccine Aged Out No marcela jorge eligible based on patient's age to complete this topic RSV Immunizations Under 20 Months Aged Out No longer eligible based on patient's age to complete this topic Procedures Procedure Name Priority Date/Time Associated Diagnosis Comments COLLECTION VENOUS BLOOD VENIPUNCTURE Routine 02/05/2025 10:24 AM CDT Primary hypertension Hyperlipidemia, unspecified hyperlipidemia type Prediabetes Annual physical exam Screening for prostate cancer CBC W/DIFF AUTOMATED Routine 02/05/2025 10:24 AM CDT Primary hypertension Hyperlipidemia, unspecified hyperlipidemia type Annual physical exam COMPREHENSIVE METABOLIC PANEL Routine 02/05/2025 10:24 AM CDT Primary hypertension Hyperlipidemia, unspecified hyperlipidemia type Annual physical exam TSH W/REFLEX Routine 02/05/2025 10:24 AM CDT Primary hypertension Hyperlipidemia, unspecified hyperlipidemia type Annual physical exam LIPID PANEL Routine 02/05/2025 10:24 AM CDT Primary hypertension Hyperlipidemia, unspecified hyperlipidemia type Annual physical exam PROSTATE SPECIFIC ANTIGEN,SCREENING Routine 02/05/2025 10:24 AM CDT Primary hypertension Hyperlipidemia, unspecified hyperlipidemia type Annual physical exam Screening for prostate cancer HEMOGLOBIN, GLYCOSYLATED Routine 02/05/2025 10:24 AM CDT Primary hypertension Hyperlipidemia, unspecified hyperlipidemia type Prediabetes Annual physical exam OUTSIDE LAB (SCAN ORDER) 01/28/2025 CTA CHEST Routine 11/09/2022 2:29 PM CDT [...] Recently Relevant to Health Maintenance Results * TSH W/REFLEX (02/05/2025 10:24 AM CDT) TSH 1.148 0.358 - 3.740 uIU/ML 02/05/2025 4:37 PM CDT [facility] 02/05/2025 10:2 4 AM CDT Nadine Huang DO LABORATORY Final Re sult Performing Organization Address [facility] Co de Phone Number [facility] [address] [place] [address], [place] [phone] * (ABNORMAL) HEMOGLOBIN, GLYCOSYLATED (02/05/2025 10:24 AM CDT) HGB A1C 6.1 4.5 - 6.2 % 02/05/2025 3:10 PM CDT [facility] ESTIMATED AVG GLUCOSE 128(H) 74 - 106 MG/DL 02/05/2025 3:10 PM CDT [facility] 02/05/2025 10:2 4 AM CDT Nadine Huang DO LABORATORY Final Re sult Performing Organization Address [facility]/ZIP Co de Phone Number [facility] [address] [place] [address], [place] [phone] * PROSTATE SPECIFIC ANTIGEN,SCREENING (02/05/2025 10:24 AM CDT) PSA 0.90 <4.00 NG/ML 02/05/2025 2:29 PM CDT [facility] Comment: ASSAY PERFORMED BY [employer] METHODOLOGY USING [employer] REAGENT. PATIENT RESULTS DETERMINED BY ASSAYS FROM DIFFERENT MANUFACTURERS AND/OR BY DIFFERENT METHODS MAY NOT BE COMPARABLE. 02/05/2025 10:2 4 AM CDT us Nadine Olivares Indira DO LABORATORY Final Re sult -[facility] [place] [address] [place] [address], [place] [phone] * (ABNORMAL) COMPREHENSIVE METABOLIC PANEL (02/05/2025 10:24 AM CDT) SODIUM S/P/B 145 136 - 145 MMOL/L 02/05/2025 4:37 PM CDT -[facility] POTASSIUM S/P/B 3.7 3.5 - 5.1 MMOL/L 02/05/2025 4:37 PM CDT [facility] CHLORIDE S/P/B 106 98 - 107 MMOL/L 02/05/2025 4:37 PM CDT [facility] CO2 29.8 21 - 32 MMOL/L 02/05/2025 4:37 PM CDT -[facility] GLUCOSE 102(H) 70 - 99 MG/DL 02/05/2025 4:37 PM CDT -[facility] BUN 13 7 - 18 MG/DL 02/05/2025 4:37 PM CDT -[facility] CREATININE S/P/B 0.86 0.70 - 1.30 MG/DL 02/05/2025 4:37 PM CDT [facility] CALCIUM S/P/B 8.8 8.4 - 10.5 MG/DL 02/05/2025 4:37 PM CDT -[facility] BILIRUBIN TOTAL S/P/B 0.5 0.2 - 1.0 MG/DL 02/05/2025 4:37 PM CDT [facility] ALKALINE PHOSPHATASE S/P/B 70 45 - 115 U/L 02/05/2025 4:37 PM CDT [facility] AST 24 15 - 37 U/L 02/05/2025 4:37 PM CDT [facility] ALT 36 16 - 63 U/L 02/05/2025 4:37 PM CDT [facility] TOTAL PROTEIN S/P/B 7.2 6.4 - 8.2 G/DL 02/05/2025 4:37 PM CDT [facility] ALBUMIN S/P/B 4.2 3.4 - 5.0 G/DL 02/05/2025 4:37 PM CDT [facility] ANION GAP 9.2 5 - 15 MMOL/L 02/05/2025 4:37 PM CDT [facility] Comment:REFERENCE RANGE NOT ESTABLISHED OSMOLALITY (CALC) 300 MOSM/KG 025 4:37 PM CDT [facility] Comment:REFERENCE RANGE NOT ESTABLISHED GFR ESTIMATE >90 >90 ML/MIN/1. 73 M2 02/05/2025 4:37 PM CDT [facility] GFR NOTES GFR REFERENCE S: 02/05/2025 4:37 PM CDT [facility] Comment: THE ESTIMATED GFR IS CALCULATED USING THE 2020 CKD-EPI EQUATION. THE FOLLOWING CATEGORIES FOR GRADING RENAL FUNCTION ARE RECOMMENDED BY THE INTERNATIONAL SOCIETY OF NEPHROLOGY (KDIGO 2012 CLINICAL PRACTICE GUIDELINE). G1,NORMAL OR HIGH: >89 ml/min/1.73 m2 G2,MILDLY DECREASED: 60-89 ml/min/1.73 m2 G3A,MILDLY TO MODERATELY DECREASED: 45-59 ml/min/1.73 m2 G3B,MODERATELY TO SEVERELY DECREASED: 30-44 ml/min/1.73 m2 G4,SEVERELY DECREASED: 15-29 ml/min/1.73 m2 G5,KIDNEY FAILURE: <15 ml/min/1.73 m2 02/05/2025 10:2 4 AM CDT us Nadine Huang DO LABORATORY Final Re sult [facility] [place] [address] [place] [address], * (ABNORMAL) LIPID PANEL (02/05/2025 10:24 AM CDT) CHOLESTEROL 186 <200 MG/DL 02/05/2025 4:37 PM CDT [facility] TRIGLYCERIDES 56 <150 MG/DL 02/05/2025 4:37 PM CDT [facility] HDL 53 >40 MG/DL 02/05/2025 4:37 PM CDT [facility] LDL-C 122(H) <100 MG/DL 02/05/2025 4:37 PM CDT [facility] VLDL CALCULATION 11 5 - 28 MG/DL 02/05/2025 4:37 PM CDT [facility] CHOL/HDL RATIO 3.5 0.0 - 4.0 02/05/2025 4:37 PM CDT [facility] LDL/HDL 2.3(H) 0.41 - 2.13 02/05/2025 4:37 PM CDT [facility] NON HDL CHOLESTEROL 133 <140 MG/DL 02/05/2025 4:37 PM CDT [facility] 02/05/2025 10:2 4 AM CDT Nadine Huang DO LABORATORY Final Re sult [facility] [address] [place] [address], * (ABNORMAL) CBC W/DIFF AUTOMATED (02/05/2025 10:24 AM CDT) WBC 5.26 4.00 - 10.80 x10'3/uL 02/05/2025 3:30 PM CDT [facility] RBC 4.30(L) 4.50 - 6.10 x10'6/uL 02/05/2025 3:30 PM CDT [facility] HGB 13.8 13.0 - 18.0 G/DL 02/05/2025 3:30 PM CDT [facility] HCT 42.1 37.0 - 52.0 % 02/05/2025 3:30 PM CDT [facility] MCV 97.9 78.0 - 100.0 FL 02/05/2025 3:30 PM CDT [facility] MCH 32.1(H) 27.0 - 31.0 PG 02/05/2025 3:30 PM CDT [facility] MCHC 32.8(L) 33.0 - 36.0 G/DL 02/05/2025 3:30 PM CDT [facility] RDW 14.1 11.5 - 14.5 % 02/05/2025 3:30 PM CDT [facility] PLT 314 150 - 350 x10'3/uL 02/05/2025 3:30 PM CDT [facility] MPV 10.7(H) 7.4 - 10.4 FL 02/05/2025 3:30 PM CDT [facility] DIFFERENTIAL TYPE AUTOMATED DIFFERENTIAL 02/05/2025 3:30 PM CDT [facility] NEUTROPHILS % 68.2 % 02/05/2025 3:30 PM CDT [facility] LYMPHOCYTES % 18.6 % 02/05/2025 3:30 PM CDT [facility] MONOCYTES % 9.1 % 02/05/2025 3:30 PM CDT [facility] EOSINOPHILS % 2.9 % 02/05/2025 3:30 PM CDT [facility] BASOPHILS % 1.0 % 02/05/2025 3:30 PM CDT [facility] IMMATURE GRANS % 0.2 % 02/05/2025 3:30 PM CDT [facility] ABS. NEUTROPHILS 3.59 1.60 - 8.30 x10'3/uL 02/05/2025 3:30 PM CDT [facility] ABS. LYMPHOCYTES 0.98 0.80 - 4.70 x10'3/uL 02/05/2025 3:30 PM CDT [facility] ABS. MONOCYTES 0.48 0.00 - 1.50 x10'3/uL 02/05/2025 3:30 PM CDT [facility] ABS. EOSINOPHILS 0.15 0.00 - 0.40 x10'3/uL 02/05/2025 3:30 PM CDT [facility] ABS. BASOPHILS 0.05 0.00 - 0.20 x10'3/uL 02/05/2025 3:30 PM CDT [facility] ABS. IMMATURE GRANULOCYTES 0.01 0.00 - 0.03 x10'3/uL 02/05/2025 3:30 PM CDT [facility] 02/05/2025 10:2 4 AM CDT Nadine Huang DO LABORATORY Final Re sult [facility] [address] [place] [address], * OUTSIDE LAB (SCAN ORDER) (01/28/2025) 01/28/2025 us [facility] Scanned SCANNING Final Resu lt * CTA CHEST (11/09/2022 2:29 PM CDT) [...] - 11/01/2022 4:10 PM CDT Performed at: [address] [place] [id number] [employer]: Jr Doyle PhD, Phone: [phone] Nadine Huang DO LABORATORY Final Re sult [facility] [address] [phone] [facility] 1 * COLONOSCOPY GENERIC (03/26/2022) 03/26/2022 us Doc [facility] Scanned SCANNING Final Resu lt from Last 3 Months or Most Recently Relevant to Health Maintenance [place] [address] Care Teams Mold Shaker Relationship Specialty Start Date End Date Nadine Huang DO [address] [place] [address] [phone] PCP - General FAMILY PRACTICE 12/07/19
[2025-02-11 13:34] VITALS: BP 154/79; PULSE 98; RESP 18; TEMP 36.6; O2SAT 100; BMI 27.3
--- NOTE | 2025-02-11 13:42 | WPDANESEPPF ---
Anes - Initial Pre Proc Eval Procedure: Operation Date: 02/11/25 14:30 Proposed Procedures p EGD & Diagnostic Colonoscopy - Ace Multani MD Date/Time: 02/11/25 13:42 Surgeon: Ace Multani MD Pre Op Diagnosis: Left sided colitis without complications Patient Data Age: 74 Gender: M Height: 1.7 m Weight: 79.4 kg Last Vital Signs Temp 97.9 F 02/11/25 13:34 Pulse 98 02/11/25 13:34 Resp 18 02/11/25 13:34 BP 154/79 H 02/11/25 13:34 Pulse Ox 100 02/11/25 13:34 O2 Del Method Room Air 02/11/25 13:34 Allergies Allergy/AdvReac Type Severity Reaction Status Date / Time ibuprofen Allergy Unknown Ulcers Verified 02/03/25 11:12 Tetanus Vaccines and Toxoid Allergy Unknown Skin Verified 02/03/25 11:12 Reaction tetanus toxoid, adsorbed AdvReac Mild Other Verified 02/03/25 11:12 Home Medications ?Medication ?Instructions ?Recorded ?Confirmed ?Type multivitamin 1 tablet PO DAILY 02/14/22 02/11/25 History apixaban 5 mg tablet (Eliquis) 5 mg PO ONCE 01/28/25 02/11/25 History lisinopril 20 mg tablet 20 mg PO DAILY 01/28/25 02/03/25 History metoprolol succinate 50 mg 50 mg PO DAILY 01/28/25 02/03/25 History tablet,extended release 24 hr ascorbic acid (vitamin C) 1,000 mg 1 g PO DAILY 02/03/25 02/11/25 History tablet (Vitamin C) Patient hx anesthesia problems: none Family hx anesthesia problems: none Results Review: All pre-operative results and documents have been reviewed as part of the pre-operative evaluation. 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 Pre-diabetes GERD (gastroesophageal reflux disease) Cancer Kidney disease Allergies Surgical History Surgical History Hx of inguinal hernia surgery History of knee replacement H/O lithotripsy Family History Family History Mother Diabetes mellitus Patient's mother is , Onset Age: 80 Father Hypertension Cerebrovascular accident Patient's father is , Onset Age: 80 Sibling Depression Social History Social History Smoking status: Never smoker Alcohol intake: current Drinks per week: 2 Alcohol use details: 2 shots bourbon & 2 beers per week Substance use: never Substance use type: does not use Living arrangements: with family Spiritual care concerns: No Anes - Eval Final PreProcedure Day of Procedure 02/11/25 13:42 Patient weight: normal Heart: regular rate and rhythm Lungs: clear to auscultation Airway: Mallampati scale class II Neurological: alert and oriented Last oral intake: >/= 8 hours ASA classification: III Emergent: no Anesthetic plan: proceed Anesthesia type and monitoring: general GIVS and standard monitoring Results Review: All pre-operative results and documents have been reviewed as part of the pre-operative evaluation. Informed Consent: The patient's anesthetic plan and its attendant risks and benefits were discussed with the patient/family/POA. Questions were solicited and answers provided to the satisfaction of the patient/family/POA.
[2025-02-11] MEDS: LACTATED RINGERS 1,000 ML 150 ML IV CONT (13:48)
--- NOTE | 2025-02-11 14:27 | PM.IMHP ---
H&P: HPI History of Present Illness Date/Time: 02/11/25 14:27 Chief Complaint: Dysphagia-history of ulcerative colitis Narrative: The patient is referred for EGD and colonoscopy. He had a stricture in the distal esophagus 3 years ago which was dilated with a Villarreal dilator. He states that over the past 6 months his dysphagia is worsening and is present 30% of the times he eats solid food and sometimes liquids. He has a diagnosis of left-sided ulcerative colitis, last colonoscopy 2021. He is currently not taking any medication. 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 Pre-diabetes GERD (gastroesophageal reflux disease) Cancer Kidney disease Allergies Surgical History Surgical History Hx of inguinal hernia surgery History of knee replacement H/O lithotripsy Family History Family History Mother Diabetes mellitus Patient's mother is , Onset Age: 80 Father Hypertension Cerebrovascular accident Patient's father is , Onset Age: 80 Sibling Depression Social History Social History Smoking status: Never smoker Alcohol intake: current Drinks per week: 2 Alcohol use details: 2 shots bourbon & 2 beers per week Substance use: never Substance use type: does not use Living arrangements: with family Spiritual care concerns: No Meds Home Medications and Allergies Home Medications ?Medication ?Instructions ?Recorded ?Confirmed ?Type multivitamin 1 tablet PO DAILY 02/14/22 02/11/25 History apixaban 5 mg tablet (Eliquis) 5 mg PO ONCE 01/28/25 02/11/25 History lisinopril 20 mg tablet 20 mg PO DAILY 01/28/25 02/03/25 History metoprolol succinate 50 mg 50 mg PO DAILY 01/28/25 02/03/25 History tablet,extended release 24 hr ascorbic acid (vitamin C) 1,000 mg 1 g PO DAILY 02/03/25 02/11/25 History tablet (Vitamin C) Allergies Allergy/AdvReac Type Severity Reaction Status Date / Time ibuprofen Allergy Unknown Ulcers Verified 02/03/25 11:12 Tetanus Vaccines and Toxoid Allergy Unknown Skin Verified 02/03/25 11:12 Reaction tetanus toxoid, adsorbed AdvReac Mild Other Verified 02/03/25 11:12 Vital Signs Vital Signs - 24 hr 02/11/25 13:34 Temperature 97.9 F Pulse Rate 98 Respiratory Rate 18 Blood Pressure 154/79 H Pulse Oximetry 100 Oxygen Delivery Room Air Exam Const: General: cooperative and healthy appearing Resp: Effort & Inspection: normal respiratory effort and able to speak in complete sentences Auscultation: clear to auscultation bilaterally Cardio: Rate: regular rate Rhythm: regular rhythm GI: Inspection: normal to inspection GI Palp: No No hepatosplenomegaly present Auscultation: normal bowel sounds Rectal Exam: deferred Skin: General skin exam: normal color Psych: Appearance: grossly normal Mental Status: mental status grossly normal Assessment and Plan Assessment and plan (1) Dysphagia: Code(s): R13.10 - Dysphagia, unspecified Status: Acute Assessment and Plan: The patient is deemed a good candidate for the procedures. Consent signed. Will proceed. (2) Left sided ulcerative colitis: Code(s): K51.50 - Left sided colitis without complications Status: Acute
[2025-02-11] MEDS: BENZOCAINE (*SP) 60 ML SPRAY CAN (HURRICAINE) 1 SPRAY MUCOUS MEM (14:29)
--- NOTE | 2025-02-11 14:40 | SUR.OPER ---
EGD end 1537 COLONOSCOPY START 1447
[2025-02-11 14:59] VITALS: BP 148/89; PULSE 81; RESP 22; O2SAT 100
[2025-02-11 15:09] VITALS: BP 140/82; PULSE 77; RESP 18; O2SAT 100
[2025-02-11 15:15] VITALS: BP 132/91; PULSE 79; RESP 21; O2SAT 100
== END 2025-02-11 15:37 | disposition home or self-care (01) ==
PROVIDERS: PCP Student in an Organized Health Care Education/Training Program; Referring Provider Nurse Practitioner; Visit Provider Internal Medicine Gastroenterology
PROC: 0DJ08ZZ Inspection of Upper Intestinal Tract, Via Natural or Artificial Opening Endoscopic (ICD-10-PCS; CPT 45378; principal; 2025-02-11 14:30)
DX: K21.00 Gastro-esophageal reflux disease with esophagitis, without bleeding (principal); K22.2 Esophageal obstruction; K64.8 Other hemorrhoids; K57.30 Diverticulosis of large intestine without perforation or abscess without bleeding; K44.9 Diaphragmatic hernia without obstruction or gangrene; K29.30 Chronic superficial gastritis without bleeding; K51.50 Left sided colitis without complications; R73.03 Prediabetes; Z79.01 Long term (current) use of anticoagulants; Z98.890 Other specified postprocedural states; Z85.9 Personal history of malignant neoplasm, unspecified; Z87.19 Personal history of other diseases of the digestive system
CPT/HCPCS: 43249; 45378; C1726; J2003; J2704; J7120

== ENCOUNTER 2025-03-23 07:56 | Emergency (ER) | payer MEDICARE, SELFPAY ==
--- OUTSIDE RECORDS SUMMARY | 2025-03-23 08:00 | XMS_ITS | Encounter Summary ---
Author Organization [facility] Address [address] [place] [address] Phone Care Team Providers Care Chief Transfer And Pumphouse Operator Name Role Phone Tyrone Cantrell MD, Nestor Unavailable [phone]- [phone] Jett Jacobson DO Primary Care Provide r Ryan Campbell Unavailable Unavailable Encounter Details Date Type Department Care Team (Latest Contact Info) Description 02/01/2025 Results Follow-Up [facility] Medicine Orthopaedic Surgery [address] [facility] [facility] [address] 2nd [address] [place] [address] Tracey Lund, ANDRES [address] [facility] [address] [place] [address] NM Bone Imaging 3 Phase, Synovasure Social History Tobacco Use Types Packs/Day Years [...] on file 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
--- OUTSIDE RECORDS SUMMARY | 2025-03-23 08:00 | XMS_ITS | Clinical Summary ---
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 Other pruritus 02/27/2021 Palpitations 02/25/2018 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 018 Encounters Date Type Department Care Team Description 02/01/2025 Results Follow-Up [facility] Medicine Orthopaedic Surgery [address] [place] [address] 2nd [address] [place] [address] Tracey Lund NP NM Bone Imaging 3 Phase, Synovasure 01/22/2025 7:20 AM CDT - 01/22/2025 11:59 PM CDT Hospital Encounter [facility] Imaging [address] [place] [address] Discharge Disposition: Discharge to home or self care 01/22/2025 7:20 AM CDT - 01/22/2025 11:59 PM CDT Hospital Encounter [facility] Imaging [address] [address] 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; Pain in both knees, unspecified chronicity Discharge Disposition: Discharge to home or self care 01/22/2025 7:19 AM CDT - 01/22/2025 11:59 PM CDT Hospital Encounter [facility] Radiology [address] [address] Rajeev Ferrer MD Ponkowski, Brien Sampson MD Aftercare following right knee joint replacement surgery; Right knee pain, unspecified chronicity Discharge Disposition: Discharge to home or self care 01/20/2025 1:45 PM CDT Ancillary Procedure Radiology - [address] [place] [address] [address] [place] [address] 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 01/20/2025 1:15 PM CDT Office Visit [facility] Medicine Orthopaedic Surgery [address] [place] [address] 2nd [address] [place] [address] Tracey Lund NP 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 (Primary Dx); Pain in both knees, unspecified chronicity; Hip pain, bilateral; Aftercare following right knee joint replacement surgery; Right knee pain, unspecified chronicity 01/20/2025 12:45 PM CDT Ancillary Procedure Radiology - [address] [place] [address] [address] [place] [address] 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; Pain in both knees, unspecified chronicity 01/18/2025 3:00 [place] [address] 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; [...] Date Smoking Tobacco: Never Smokeless Tobacco: Never Comments:1974 Alcohol Use Standard Drinks/Week Comments Yes 0 [...] on file 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 Gender Identity Not on file Sexual Orientation Not on file Last Filed [...] Additional history exists Influenza Vaccine (#1) 2024 , 02/16/2022, 02/13/2021, Additional history exists Fall Risk Assessment 01/22/2026 01/22/2025 Pneumococcal vaccine 65+ Completed 020, 11/17/2018, 08/31/2015 Abdominal Aortic Aneurysm (A AA) Screen Completed 02/22/2021 Procedures Procedure Name Priority Date/Time Associated Diagnosis Comments SYNOVASURE Routine 02/01/2025 2:41 PM CDT Aftercare following right knee joint replacement surgery Right knee pain, unspecified chronicity NM BONE IMAGING 3 PHASE Schedule Routine, [...] chronicity from Last 3 Months Results * Synovasure (02/01/2025 2:41 PM CDT) Synovial fluid us Tracey Lund PIE CRUST MIXER LAB BODY FLUIDS AND STOOL S ORDERABLES Edited Result - Final EXTERNAL LAB * NM Bone Imaging 3 Phase (01/22/2025 [...] by: Lazara Avalos M.D. us Tracey Lund PIE CRUST MIXER IMG NM PROCEDURES Final R esult * Crystal Analysis, Body Fluid (01/22/2025 9:00 AM CDT) Specimen type, fld Synovial Comment:Testing performed by : [facility], [address] [place] [address]., [address] Crystals Not Present Not Present CERNER [facility] Comment:Testing performed by : [facility], [address] [place] [address]., [address] Fluid 01/22/2025 9:00 AM CDT 01/22/2025 10:01 AM CDT Narrative [facility]ER [facility] - 01/22/2025 11:48 AM CDT Left knee Tracey Lund NP LAB BODY FLUIDS AND STOOL S ORDERABLES Final Result [facility]ING[facility] [address] [facility]. Department [place] [address] * Cell Differential, Body Fluid (01/22/2025 9:00 [...] 01/22/2025 9:19 AM CDT us Tracey Lund PIE CRUST MIXER LAB BODY FLUIDS AND STOOL S ORDERABLES Final Result Performing Organization Address [facility] Co de Phone Number NICHO HARDINGCH [address] [address] [facility]. [facility] [place] [address] * Cell count w/rflx diff, body fluid [...] revised on 2018. RBC, fld 2,000 /cumm CERNER [facility] Fluid 01/22/2025 9:00 AM CDT 01/22/2025 9:19 AM CDT Narrative N[facility] R[facility]WELL - 01/22/2025 10:17 AM CDT Left knee us Tracey Lund PIE CRUST MIXER LAB BODY FLUIDS AND STOOL S ORDERABLES Final Result Performing Organization Address [facility] Co de Phone Number N[facility]HO HARDING[facility] [address] [address] [facility]. Department [place] [address] * Mycology (fungal) culture Synovial fluid Knee, left (01/22/2025 9:00 AM CDT) Report Final Report: No fungus isolated Comment:Testing performed by : [facility], [facility] [facility], [place]., [address] Synovial fluid (Knee, left) 01/22/2025 9:00 AM CDT 01/22/2025 10:08 AM CDT Narrative N[facility] [place] - 02/19/2025 1:00 PM CDT Results may be compromised by the low volume of specimen received. Mycology cultures are held for 4 weeks. Tracey Lund NP LAB MICROBIOLOGY - GENERA L ORDERABLES Final Result Performing Organization Address [facility] Co de Phone Number NICHO NEFFWCH [address] [facility] [place] [address] * Aerobic and anaerobic culture and gram stain Synovial fluid Knee, left (01/22/2025 9:00 AM CDT) Direct Specimen Exam Stain: Rare polymorphonuclear leukocytes seen. No organisms seen. Comment:Testing performed by : [facility], [address] [place] [address]., [id number] Report Final Report: No growth [facility] Comment:Testing performed by : [facility], [address] [place] [address]., [id number] Synovial fluid (Knee, left) 01/22/2025 9:00 AM CDT 01/22/2025 10:08 AM CDT Narrative [facility] - 01/27/2025 8:47 AM CDT Results may be compromised by the low volume of specimen received. Tracey Lund PIE CRUST MIXER LAB MICROBIOLOGY - GENERA L ORDERABLES Final Result Performing Organization Address [facility] Phone Number NICHO NEFFWCH [address] [facility] [place] [address] * Mycobacteriology (AFB) culture Synovial fluid Knee, left (01/22/2025 9:00 AM CDT) Report Final Report: No Acid Fast Bacilli isolated Comment:Testing performed by : [facility], [address] [place] [address]., [address] Synovial fluid (Knee, left) 01/22/2025 9:00 AM CDT 01/22/2025 10:08 AM CDT Narrative [facility] [place] - 03/19/2025 1:00 PM MACHINE SETUP OPERATOR Mycobacteriology (AFB) cultures are held for 8 weeks. us Tracey Lund NP LAB MICROBIOLOGY - GENERA L ORDERABLES Final Result [facility] [address] [facility]. Department [place] [address] * US Guided Aspiration or Injection of [...] was obtained. Prior to beginning the procedure, Imperial Protocol was performed to confirm the patient's [...] was obtained. Prior to beginning the procedure, Imperial Protocol was performed to confirm the patient's [...] Mild bilateral hip osteoarthritis. Electronically signed by: Justine Lopez 01/20/2025 3:13 PM CDT EXAMINATION: XR HIPS [...] signed by: Jimmie Fernandez M.D. Tracey Lund PIE CRUST MIXER IMG XR PROCEDURES Final R esult * [...] signed by: Leroy Cortez M.D. Tracey Lund PIE CRUST MIXER IMG XR PROCEDURES Final R esult * [...] * Differential, auto (01/18/2025 3:12 PM CDT) Neutrophil abs 4.17 1.50 - 6.50 K/cumm Imm gran abs 0.02 0.00 - 0.10 K/cumm CERNER MH Lymphocyte abs 1.43 0.80 - 3.30 K/cumm CERNER Monocyte abs 0.60 0.20 - 0.80 K/cumm CERNER MH Eosinophil abs 0.19 0.00 - 0.50 K/cumm CERNER MH Basophil abs 0.09 0.00 - 0.10 K/cumm [facility] Neutrophil pct 64.2 % [facility] Comment: Interpretive Data Percent cell count reference ranges are not reported, since discordance with absolute values may lead to misinterpretation of CBC data. Current Interpretive Data was last revised on 2017. Imm gran pct 0.3 % [facility] Comment: Interpretive Data Percent cell count reference ranges are not reported, since discordance with absolute values may lead to misinterpretation of CBC data. Current Interpretive Data was last revised on 2017. Lymphocyte pct 22.0 % [facility] Comment: Interpretive Data Percent cell count reference ranges are not reported, since discordance with absolute values may lead to misinterpretation of CBC data. Current Interpretive Data was last revised on 2017. Monocyte pct 9.2 % [facility] Comment: Interpretive Data Percent cell count reference ranges are not reported, since discordance with absolute values may lead to misinterpretation of CBC data. Current Interpretive Data was last revised on 2017. Eosinophil pct 2.9 % [facility] Comment: Interpretive Data Percent cell count reference ranges are not reported, since discordance with absolute values may lead to misinterpretation of CBC data. Current Interpretive Data was last revised on 2017. Basophil pct 1.4 % [facility] Comment: Interpretive Data Percent cell count reference ranges are not reported, since discordance with absolute values may lead to misinterpretation of CBC data. Current Interpretive Data was last revised on 2017. Blood 01/18/2025 3:12 PM CDT 01/18/2025 6:36 PM CDT us Tracey Lund NP LAB BLOOD ORDERABLES Nirmala diamond Result [facility] [address] [facility] [place] [address] * (ABNORMAL) CBC with auto differential (01/18/2025 3:12 PM CDT) WBC 6.50 3.80 - 9.90 K/cumm Hgb 14.3 13.0 - 17.5 g/dL [facility] Hct 43.8 38.9 - 50.3 % [facility] Plt 307 150 - 400 K/cumm [facility] MPV 10.6 9.1 - 12.3 fL [facility] RBC 4.54 4.30 - 5.80 M/cumm [facility] MCV 96.5(H) 81.3 - 96.4 fL [facility] MCH 31.5 27.1 - 33.3 pg [facility] MCHC 32.6 32.3 - 35.7 g/dL [facility] RDW CV 14.0 11.1 - 14.9 % [facility] RDW SD 49.7(H) 35.7 - 48.1 fL [facility] NRBC abs 0.00 0.00 - 0.01 K/cumm [facility] Blood 01/18/2025 3:12 PM CDT 01/18/2025 6:36 PM CDT Tracey Lund PIE CRUST MIXER LAB BLOOD ORDERABLES Nirmala l Result Performing Organization Address [facility] Co de Phone Number [address] [place] [address] * Erythrocyte sedimentation rate (01/18/2025 3:12 PM CDT) Pathologist [facility] Erythrocyte sedimentation rate 13 1 - 20 mm/hr Blood 01/18/2025 3:12 PM CDT 01/18/2025 6:36 PM CDT Tracey Lund PIE CRUST MIXER LAB BLOOD ORDERABLES Nirmala l Result Performing Organization Address [facility] Co de Phone Number [address] [place] [address] * CRP (acute phase) (01/18/2025 3:12 PM CDT) Pathologist [facility] CRP 0.6 <=10.0 mg/L Blood 01/18/2025 3:12 PM CDT 01/18/2025 6:36 PM CDT us Tracey Lund PIE CRUST MIXER LAB BLOOD ORDERABLES Nirmala dara Result [facility] [address] [facility] [place] [address] from Last 3 Months Insurance [facility] MEDIC[facility] ADVANTAGE [facility] Address: [address] [place], [place] [phone] [facility] Address: [address] [place], [place] [phone] [facility] MEDICARE ADVANTAGE Care Teams Grinding And Polishing Laborer Relationship Specialty Start Date End Date Jett Jacobson DO [address] [place] [address] PCP - General Family Medicine 02/27/21 Nestor Hansen Jr., MD Medical Oncologist/Pulp Mill Supervisor Medical Oncology 12/26/17 Ryan Campbell Primary Director Volunteer Services 01/14/25
[2025-03-23 08:01] VITALS: BP 158/83; PULSE 89; RESP 16; TEMP 36.6; O2SAT 100
--- NOTE | 2025-03-23 08:22 | ED_ITS ---
HPI - General Adult General Chief complaint: Neck Pain/Injury Stated complaint: neck pain x 1 year Time Seen by Provider: 03/23/25 07:58 History of Present Illness HPI narrative: 74-year-old male history of arthritis presenting to the emergency department for evaluation for right-sided neck pain that is worsened with turning his head. Patient denies any midline back pain. Patient reports he does have intermittent pain like this but often improves during the course the day. Patient reports since yesterday morning the pain has been persistent. Patient denies any numbness or weakness. Patient denies any falls or injury. Patient has been taking Tylenol for pain control. Patient reports he does have history of prediabetes. Related Data Home Medications ?Medication ?Instructions ?Recorded ?Confirmed ?Last Taken ?Type multivitamin 1 tablet PO DAILY 02/14/22 1 02/10/25 History apixaban 5 mg tablet (Eliquis) 5 mg PO ONCE 01/28/25 1 01/20/25 History lisinopril 20 mg tablet 20 mg PO DAILY 01/28/2512/21 Unknown History metoprolol succinate 50 mg 50 mg PO DAILY 01/28/2512/21 Unknown History tablet,extended release 24 hr ascorbic acid (vitamin C) 1,000 mg 1 g PO DAILY 02/11/25 02/10/25 History tablet (Vitamin C) Allergies Allergy/AdvReac Type Severity Reaction Status Date / Time ibuprofen Allergy Unknown Ulcers Verified 03/23/25 08:05 Tetanus Vaccines and Toxoid Allergy Unknown Skin Verified 03/23/25 08:05 Reaction tetanus toxoid, adsorbed AdvReac Mild Other Verified 03/23/25 08:05 Review of Systems Review of Systems: All systems reviewed & are unremarkable except as noted in HPI and below PMFSH Past Medical History Medical History (Updated 03/23/25 @ 08:27 by Parker Foss MD) 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 Pre-diabetes GERD (gastroesophageal reflux disease) Cancer Kidney disease Allergies Surgical History Surgical History Hx of inguinal hernia surgery History of knee replacement H/O lithotripsy Family History Family History Mother Diabetes mellitus Patient's mother is , Onset Age: 80 Father Hypertension Cerebrovascular accident Patient's father is , Onset Age: 80 Sibling Depression Social History Social History Smoking status: Never smoker Alcohol intake: current Drinks per week: 2 Alcohol use details: 2 shots bourbon & 2 beers per week Substance use: never Substance use type: does not use Living arrangements: with family Spiritual care concerns: No Exam Narrative: APPEARANCE: Well appearing, no pain, no distress, well-nourished. HEAD: normocephalic, atraumatic. EYES: PERRLA/EOMI, conjunctivae clear. NOSE: Normal no drainage EARS:TMS clear with good light reflex. THROAT: Pharynx clear, no exudate. NECK: Supple. No adenopathy, no masses. RESPIRATORY: Airway patent, respirations nonlabored. Clear to auscultation bilaterally, no rales, rhonchi, wheezing. CARDIOVASCULAR: Regular rate and rhythm without murmurs rubs or gallops. ABDOMINAL: Soft, nontender, nondistended, normal bowel sounds MUSCULOSKELETAL: Right lateral trapezius tenderness to palpation into the cervical aspect of the trapezius NEURO: Alert. Cranial nerves II through XII intact. Good gait. Good coordination SKIN: Warm, dry. Normal Color Course Vital Signs Vital signs: Vital Signs Temperature 97.8 F 03/23/25 08:01 Pulse Rate 89 03/23/25 08:01 Respiratory Rate 16 03/23/25 08:01 Blood Pressure 158/83 H 03/23/25 08:01 Pulse Oximetry 100 03/23/25 08:01 Oxygen Delivery Room Air 03/23/25 08:01 Temperature 97.8 F 03/23/25 08:01 Pulse Rate 89 03/23/25 08:01 Respiratory Rate 16 03/23/25 08:01 Blood Pressure 158/83 H 03/23/25 08:01 Pulse Oximetry 100 03/23/25 08:01 Oxygen Delivery Room Air 03/23/25 08:01 Medical Decision Making [facility] Narrative Medical decision making narrative: 74-year-old male present to the emergency department for evaluation for right- sided trapezius /neck pain. Patient denies any associated numbness or weakness. Patient does have reproducible tenderness to the trapezius muscle into the cervical portion of the trapezius. No midline tenderness to palpation. Neurologically intact. Patient will be started on Medrol Dosepak for inflammation associated with the trapezius strain. Patient will also be prov ided Flexeril for muscle spasm control. Patient will take Tylenol for pain control and he was encouraged to replace the Tylenol with [place] if he has worsening pain. Differential Diagnosis Differential Diagnosis: torticollis, cervical strain, trapezius strain Vital Signs Vital Signs: Vital Signs Temperature 97.8 F 03/23/25 08:01 Pulse Rate 89 03/23/25 08:01 Respiratory Rate 16 03/23/25 08:01 Blood Pressure 158/83 H 03/23/25 08:01 Pulse Oximetry 100 03/23/25 08:01 Oxygen Delivery Room Air 03/23/25 08:01 Temperature 97.8 F 03/23/25 08:01 Pulse Rate 89 03/23/25 08:01 Respiratory Rate 16 03/23/25 08:01 Blood Pressure 158/83 H 03/23/25 08:01 Pulse Oximetry 100 03/23/25 08:01 Oxygen Delivery Room Air 03/23/25 08:01 Discharge Plan Discharge Clinical Impression: Strain of cervical portion of right trapezius muscle Patient Disposition: Home Condition: Stable Instructions: Antibiotic Form, Spasmodic Torticollis (ED) Additional Instructions: Medrol Dosepak as directed until completed. Flexeril for muscle spasm as directed. Scheduled Tylenol for pain control. If the Tylenol is not helping to control your pain then replace your next dose of Tylenol with [place]. Do not take Tylenol and [place] at the same time as both do contain acetaminophen. Have close follow-up with your primary care physician. If you have any worsening symptoms please call or return to the emergency department. Patient Language: Dominican Prescriptions: New cyclobenzaprine 10 mg tablet 10 mg PO BID PRN (Reason: muscle spasm) Qty: 14 0RF methylprednisolone [Medrol (Jacky)] 4 mg tablets,dose pack See Rx Instructions .ROUTE .COMPLEX Qty: 21 0RF Rx Instructions: for 6 days hydrocodone-acetaminophen 5-325 mg tablet 1 tablet PO Q12H PRN (Reason: pain) Qty: 14 0RF No Action multivitamin Tablet 1 tablet PO DAILY metoprolol succinate 50 mg tablet extended release 24 hr 50 mg PO DAILY Patient Comments: Not taking lisinopril 20 mg tablet 20 mg PO DAILY Patient Comments: Alternate 10mg or 20mg Eliquis 5 mg tablet 5 mg PO ONCE Patient Comments: Not taking - been off 3 weeks as of 02/03 ascorbic acid (vitamin C) [Vitamin C] 1,000 mg tablet 1 g PO DAILY pantoprazole 40 mg tablet,delayed release (DR/EC) 40 mg PO Q12H Qty: 60 3RF Follow-up/Referrals: Indira,DO Jett [Primary Care Provider]
[2025-03-23] MEDS: KETOROLAC 30 MG/ML VIAL (*BKC) IM (08:29)
[2025-03-23] MEDS: CYCLOBENZAPRINE HCL 10 MG TABLET PO (08:29)
[2025-03-23] MEDS: HYDROcodone/acetaminophen (*CRX) 10-325 MG TABLET 1 TAB PO (08:29)
--- OUTSIDE RECORDS SUMMARY | 2025-03-23 08:29 | XMS_ITS | Encounter Summary ---
Author Organization [facility] Address [address] [place] [address] Phone Care Team Providers Care Global Logistics Manager Name Role Phone Tyrone Cantrell MD, Nestor Unavailable [phone] Jett Jacobson DO Primary Care Provide r Ryan Campbell Unavailable Unavailable Encounter Details Date Type Department Care Team (Latest Contact Info) Description 02/01/2025 Results Follow-Up [facility] Medicine Orthopaedic Surgery [address] [facility] [address] [facility] [address] [place] [address] Tracey Lund, ANDRES [address] [facility] [address] [place] [address] [place] Bone Imaging 3 Phase, [...] on file 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
== END 2025-03-23 09:03 | disposition home or self-care (01) ==
PROVIDERS: Emergency Provider Emergency Medicine; PCP Student in an Organized Health Care Education/Training Program
DX: S16.1XXA Strain of muscle, fascia and tendon at neck level, initial encounter (principal); K21.9 Gastro-esophageal reflux disease without esophagitis; N28.9 Disorder of kidney and ureter, unspecified; X58.XXXA Exposure to other specified factors, initial encounter
CPT/HCPCS: 96372; 99283; A9270; J1885

== ENCOUNTER 2025-04-19 01:31 | Emergency (ER) | payer MEDICARE, SELFPAY ==
--- NOTE | ~2025-04-19 | CT_ITS ---
CT ABDOMEN AND PELVIS WITHOUT CONTRAST Clinical History: pelvic pain, hematuria Comparison: CT abdomen pelvis 02/22/2021 Technique: Unenhanced axial images lung bases to symphysis pubis Coronal, sagittal reformats CT images acquired with automatic exposure control for dose reduction DLP: 204 mGy-cm Findings: Without intravenous contrast, sensitivity for detecting visceral parenchymal abnormalities decreased. Lung bases: Clear. Visualized heart and pericardium: Coronary artery calcifications. Liver: Early cirrhosis. Gallbladder: Unremarkable. Spleen: Unremarkable. Pancreas: Unremarkable. Adrenal glands: Unremarkable. Kidneys: Right kidney- No hydronephrosis. Multiple stones, largest 11 mm UPJ. Left kidney- hydronephrosis. Perinephric stranding. Several stones, largest 12 mm. 6 mm UVJ stone Distal esophagus/stomach: Unremarkable. Small bowel loops: Normal caliber and wall thickness. Colon: Diverticula. Normal caliber and wall thickness. Normal RLQ appendix. Nodes: No enlarged nodes. Peritoneum: No ascites. No free intraperitoneal air. Urinary bladder: Unremarkable. Prostate: Enlarged. Bones: No acute bony abnormality. Soft tissues: Inguinal hernias with fat. Small umbilical hernia with fat. Unopacified abdominal aorta: No aneurysmal dilatation. Atherosclerotic disease. IMPRESSION: 1. Left kidney hydronephrosis from 6 mm UPJ stone. 2. Bilateral nephrolithiasis. 3. 11 mm stone right UPJ but no hydronephrosis. Reviewed, dictated and finalized at location R. CULAR PATHOLOGIST
--- OUTSIDE RECORDS SUMMARY | 2025-04-19 01:34 | XMS_ITS | Clinical Summary ---
Author Organization [facility] Address [address] [place] [address] Care Team Providers Care Grooming Assistant Name Role Phone Nadine Huang Elise DO [...] DAILY NEEDED FOR ERECTILE DYSFUNCTION 30 tablet 5 Active pantoprazole EC (PROTONIX) 40 MG tablet Take 1 tablet (40 mg total) by mouth daily. 5 Active Active Problems Problem Noted Date Diagnosed Date Hiatal hernia 02/12/2025 Gastroesophageal reflux dise ase with esophagitis without hemorrhage 02/12/2025 Chronic atrial fibrillation, unspecified 025 Dupuytren's contracture [...] Problem Noted Date Diagnosed Date Resolved Date Malignant neoplasm of stomach, unspecified 02/12/2025 02/12/2025 Hoarseness 02/27/2021 07/12/2021 Encounters Date Type Department Care Team Description 04/13/2025 Telephone [facility] Medical Group Family & Internal Medicine [address] [phone] Nadine Huang, DO Information 04/13/2025 Telephone [facility] Family & Internal [address] [address] Nadine Huang, DO Xray/ultrasound Order 04/07/2025 Scan [facility] SR[facility] Scanned, [facility] 03/23/2025 Scan [facility] Scanned, [facility] 03/08/2025 4:14 PM FRYER OPERATOR - 03/08/2025 11:59 PM FRYER OPERATOR Hospital Encounter [facility] Outpatient Therapy [facility] [address] [place] [phone] Newton Umaña PA Haas, Matthew R, PT Discharge Disposition: Home or Self Care (Routine Discharge) 03/08/2025 Travel 03/01/2025 1:17 PM FRYER OPERATOR - 03/01/2025 11:59 PM FRYER OPERATOR Hospital Encounter [facility] Outpatient Therapy [address] [address] Newton Umaña PA Haas, Matthew R, PT Discharge Disposition: Home or Self Care (Routine Discharge) 03/01/2025 Travel 02/24/2025 2:40 PM CDT Office Visit [facility] - [place] [address] [place] [address] Newton Umaña PA Follow Up (Bilateral hip pain, Left hip (new problem)) 02/24/2025 Travel 02/19/2025 Orders Only [facility] [place] [address] [place] [address] Newton Umaña PA 02/18/2025 Telephone [facility] Family & Internal Medicine [address] [address] Nadine Huang, DO Referral Request 02/12/2025 11:20 AM CDT Office Visit [facility] Internal Medicine [address] [phone] Nadine Huang DO Hypertension (Patient presents for 6 month follow up the patient states he has a lot to report. He states he had EGD yesterday and followed up with cardiology. ); Joint Pain (The patient states he has discussed hip, knee, shoulder, neck, lower back , and hands in the past. He is wanting to discuss today if time allows. The patient has appt scheduled with [facility] ortho. ) 02/12/2025 Travel 02/11/2025 Scan [facility] SRVCS Scanned, [facility] Colonoscopy Report (SCAN); EGD (SCAN) 02/05/2025 10:00 AM CDT Laboratory Only [facility] Internal [address] [address] Nadine Huang DO 02/05/2025 Travel 02/02/2025 Scan [facility] SRVCS Scanned, [facility] Lab (SCAN) 01/28/2025 Scan [facility] SRVCS Scanned, [facility] Lab (SCAN) 01/25/2025 Telephone [facility] - [address] [address] Newton Umaña PA Appointment Request from Last 3 Months Immunizations Immunization Administration Dates Next Due Flublok (Quadrivalent) 02/12/2019 Flulaval Quad (Multi-Dose Vial) 02/11/2018 Fluzone 6 Months+ Quad (0.5 mL Prefilled Syringe) 02/19/2023,02/16/2022,02/13/2021 Fluzone High Dose - >Age 65 (Prefilled Syringe) 03/02/2020 Influenza (Generic) 02/12/2019, 7,01/30/2017,2014,12/23/2013,12/30/2012,01/02/2012,0 12/19/2010,01/18/2010,02/03/2008,11/21/2 000 Influenza Adult (Generic) 03/02/2020,02/11/2018 PFIZER COVID-19 (ORIGINAL FORMULATION, PURPLE CAP) mRNA, LNP-S, PF, 30 MCG/0.3 ML DOSE 08/12/2020,08/01/2020,06/24/2020,2020 Pneumococcal (Pneumovax 23) 11/17/2018 Pneumococcal (Prevnar 13) 12/07/2019,08/31/2015 Zoster (Zostavax) 00003 Unt/0.65Ml 01/30/2017, Family History Medical History Relation Comments Hypertension Father Stroke Father Cancer Mother Diabetes Mother No Known Problems Sister 1 Dementia Sister 2 Relation Status Comments Father Mother Sister 1 Alive Sister 2 Alive Social History Tobacco Use Types Packs/Day Years Used Date Smoking Tobacco: Former Cigarettes Pipe Cigars Smokeless Tobacco: Never Tobacco Cessation:Counseling Given: Not Answered Comments:Former smoker Alcohol Use Standard Drinks/Week Comments [...] Sign Reading Time Taken Comments Blood Pressure 166/94 02/24/2025 4:04 PM CDT Pulse 67 02/24/2025 4:04 PM CDT Temperature 36.1 C (97 F) 02/24/2025 2:49 PM CDT Respiratory Rate 16 02/12/2025 11:42 AM CDT Oxygen Saturation 98% 02/12/2025 11:42 AM CDT Inhaled Oxygen Concentration - - Weight 84.2 kg (185 lb 9.6 oz) 02/24/2025 2:49 P M CDT Height 172.7 cm (5' 8) 02/24/2025 2:49 PM CDT Body Mass Index 28.22 02/24/2025 2:49 PM CDT Plan of Treatment Upcoming Encounters Date Type Department Care Team (Late st Contact Info) Description 07/14/2025 11:20 AM CDT Office Visit [facility] Medical Group Family & Internal Medicine - [address] [phone] Nadine Huang, [address] [place] [phone] Health Maintenance Due Date Last Done Comments ASCVD Statin 1950 Annual Medicare Wellness Visit 12/03/2024 12/03/2023, 02/13/2021 COVID-19 Vaccine ( season) 2026 08/12/2020, 08/01/2020, 06/24/2020, Additional history exists Postponed from 12/28/2024 (Patient Refused) Influenza Adult (#1) 2026 02/19/2023, 02/16/2022, 02/13/2021, Additional history exists Postponed from 01/27/2025 (Patient Refused) RSV Immunization or 60+ Years (1 - Risk 60-74 years 1-dose series) 02/12/2026 Postponed fro m 2012 (Patient Refused) Zoster Vaccines (2 of 3) 02/12/2026 01/30/2017, 12/29 Postponed from 03/27/2017 (Patient Refused) Colorectal Cancer Screening Colonoscopy (10 Years) 02/12/2028 02/11/2025, 03/26/2022, 04/19/2016, Additional history exists DTaP, Tdap and Td Vaccines (1 - Tdap) 02/07/2099 Postponed from 12/17/1971 (Patient Refused) Pneumococcal Vaccine: 50+ Years Completed 12/07/2019, 11/17/2018, 08/31/2015 Hepatitis C Completed 10/29/2022 AAA SCREENING Completed 11/09/2022, 02/22/2021 PHQ-2 (Physician Whitney) Completed 09/08/2024 Hepatitis A Vaccines Aged Out [...] Procedure Name Priority Date/Time Associated Diagnosis Comments XR HIP LT 2V Routine 02/24/2025 2:44 PM CDT Bilateral hip pain XR PELVIS+RT HIP 2V Routine 02/24/2025 2 :44 PM CDT Bilateral hip pain EGD GENERIC (SCAN ORDER) 02/11/2025 COLONOSCOPY GENERIC (SCAN ORDER) 02/11/2025 COLLECTION VENOUS BLOOD VENIPUNCTURE Routine 02/05/2025 10:24 [...] unspecified hyperlipidemia type Annual physical exam PROSTATE CANCER SCREENING; PSA TEST Routine 02/05/2025 10:24 AM CDT Primary hypertension Hyperlipidemia, unspecified hyperlipidemia type Annual physical exam Screening for prostate cancer HEMOGLOBIN GLYCOSYLATED A1C Routine 02/05/2025 10:24 AM CDT Primary hypertension Hyperlipidemia, unspecified hyperlipidemia type Prediabetes Annual physical exam OUTSIDE LAB (SCAN ORDER) 02/02/2025 OUTSIDE LAB (SCAN ORDER) 01/28/2025 CTA CHEST Routine 11/09/2022 2:29 PM CDT Aneurysm of descending thoracic aorta without rupture HEPATITIS C ANTIBODY W/RFX TO HCV RNA Routine 10/29/2022 2:35 PM CDT Positive ALIDA (antinuclear antibody) Prediabetes Hyperlipidemia, unspecified hyperlipidemia type Essential hypertension Need for hepatitis C screening test Annual physical exam from Last 3 Months or Most Recently Relevant to Health Maintenance Results * XR HIP LT 2V (02/24/2025 2:44 PM CDT) Anatomical Region Laterality Modality Hip Radiographic Blanca ging 02/24/2025 7:30 PM CDT Impressions 02/24/2025 7:32 PM CDT IMPRESSION: Mild degenerative changes. No acute bony abnormalities. Ordered By: NEWTON UMAÑA Interpreted By: Marco Antonio Barcenas MD, 02/24/2025 7:30 PM Narrative 02/24/2025 7:32 PM CDT Examination: XR HIP LT 2V Exam time: 02/24/2025 2:44 PM Clinical history: Bilateral hip pain. Comparison: Studies were performed May 2023. Technique: 2 views of the left hip. Findings: There is no malalignment. There are mild degenerative changes with mild irregularity along the outer superior margin of the acetabulum. There are no acute bony abnormalities. The pubic bone is intact and the left SI joint is unremarkable. Partially visualized lower lumbar spine shows degenerative changes. Adjacent soft tissues show no acute findings. Chronic calcifications seen superimposed to the scrotum. Pelvic phleboliths as before. Procedure Note Marco Antonio Barcenas MD - 02/24/2025 Examination: XR HIP LT 2V Exam time: 02/24/2025 2:44 PM Clinical history: Bilateral hip pain. Comparison: Studies were performed May 2023. Technique: 2 views of the left hip. Findings: There is no malalignment. There are mild degenerative changeswith mild irregularity along the outer superior margin of the acetabulum.There are no acute bony abnormalities. The pubic bone is intact and theleft SI joint is unremarkable. Partially visualized lower lumbar spineshows degenerative changes. Adjacent soft tissues show no acute findings.Chronic calcifications seen superimposed to the scrotum. Pelvicphleboliths as before. IMPRESSION: Mild degenerative changes. No acute bony abnormalities. Ordered By: NEWTON UMAÑA Interpreted By: Marco Antonio Barcenas MD, 02/24/2025 7:30 PM Newton SANCHEZ [facility] Final Result * XR PELVIS+RT HIP 2V (02/24/2025 2:44 PM CDT) Anatomical Region Laterality Modality Hip, Pelvis Radiographic Blanca ging 02/24/2025 7:32 PM CDT Impressions 02/24/2025 7:34 PM CDT IMPRESSION: Mild degenerative changes in the right hip. Ordered By: NEWTON UMAÑA Interpreted By: Marco Antonio Barcenas MD, 02/24/2025 7:32 PM Narrative 02/24/2025 7:34 PM CDT Examination: XR PELVIS+RT HIP 2V Exam time: 02/24/2025 2:44 PM Clinical history: Bilateral hip pain. Comparison: Prior radiographs were done May 2023. Technique: Single view pelvis and 2 views of the right hip. Findings: Chronic degenerative changes involving the hip of mild degree degree. Mild narrowing of the right hip joint space and mild irregularity in the outer superior acetabular margin. Essentially stable findings compared to prior radiograph. No acute bony abnormalities. The contours of the greater trochanter are smooth and the right SI joint is unremarkable. Pelvic radiograph shows no acute bony findings. Degenerative changes in the lower lumbar spine. Pelvic phleboliths. Procedure Note Marco Antonio Barcenas MD - 02/24/2025 Examination: XR PELVIS+RT HIP 2V Exam time: 02/24/2025 2:44 PM Clinical history: Bilateral hip pain. Comparison: Prior radiographs were done May 2023. Technique: Single view pelvis and 2 views of the right hip. Findings: Chronic degenerative changes involving the hip of mild degreedegree. Mild narrowing of the right hip joint space and mild irregularityin the outer superior acetabular margin. Essentially stable findingscompared to prior radiograph. No acute bony abnormalities. The contours ofthe greater trochanter are smooth and the right SI joint is unremarkable.Pelvic radiograph shows no acute bony findings. Degenerative changes inthe lower lumbar spine. Pelvic phleboliths. IMPRESSION: Mild degenerative changes in the right hip. Ordered By: NEWTON UMAÑA Interpreted By: Marco Antonio Barcenas MD, 02/24/2025 7:32 PM Newton Umaña PA GENER[facility] Final Result * EGD GENERIC (SCAN ORDER) (02/11/2025) 02/11/2025 Context app Med Group Scanned SCANNING Final Resu lt * COLONOSCOPY GENERIC (SCAN ORDER) (02/11/2025) 02/11/2025 Context app [facility] Group Scanned SCANNING Final Resu lt * TSH W/REFLEX (02/05/2025 10:24 AM CDT) TSH 1.148 0.358 - 3.740 uIU/ML 02/05/2025 4:37 PM CDT -[facility] 02/05/2025 10:2 4 AM CDT Nadine Huang DO LABORATORY Final Re sult [facility] [address] [place] [address], * (ABNORMAL) HEMOGLOBIN, GLYCOSYLATED (02/05/2025 10:24 AM CDT) HGB A1C 6.1 4.5 - 6.2 % 02/05/2025 3:10 PM CDT [facility] ESTIMATED AVG GLUCOSE 128(H) 74 - 106 MG/DL 02/05/2025 3:10 PM CDT [facility] 02/05/2025 10:2 4 AM CDT us Nadien Huang DO LABORATORY Final Re sult Performing Organization Address [facility] Co de Phone Number [facility] [address] [place] [address], [place] [phone] * PROSTATE SPECIFIC ANTIGEN,SCREENING (02/05/2025 10:24 AM CDT) PSA 0.90 <4.00 NG/ML 02/05/2025 2:29 PM CDT [facility] Comment: ASSAY PERFORMED BY ENZYME IMMUNOASSAY METHODOLOGY USING SIEMENS DIMENSION REAGENT. PATIENT RESULTS DETERMINED BY ASSAYS FROM DIFFERENT MANUFACTURERS AND/OR BY DIFFERENT METHODS MAY NOT BE COMPARABLE. 02/05/2025 10:2 4 AM CDT us Nadine Huang DO OTHER Final Re sult Performing Organization Address [facility] Co de Phone Number [facility] [address] [place] [address], [place] [phone] * (ABNORMAL) COMPREHENSIVE METABOLIC PANEL (02/05/2025 10:24 AM CDT) SODIUM S/P/B 145 136 - 145 MMOL/L 02/05/2025 4:37 PM CDT [facility] POTASSIUM S/P/B 3.7 3.5 - 5.1 MMOL/L 02/05/2025 4:37 PM CDT [facility] CHLORIDE S/P/B 106 98 - 107 MMOL/L 02/05/2025 4:37 PM CDT -[facility] CO2 29.8 21 - 32 MMOL/L 02/05/2025 4:37 PM T [facility] GLUCOSE 102(H) 70 - 99 MG/DL 02/05/2025 4:37 PM T [facility] BUN 13 7 - 18 MG/DL 02/05/2025 4:37 PM CDT [facility] CREATININE S/P/B 0.86 0.70 - 1.30 MG/DL 02/05/2025 4:37 PM T [facility] CALCIUM S/P/B 8.8 8.4 - 10.5 MG/DL 02/05/2025 4:37 PM T [facility] BILIRUBIN TOTAL S/P/B 0.5 0.2 - 1.0 MG/DL 02/05/2025 4:37 PM T [facility] ALKALINE PHOSPHATASE S/P/B 70 45 - 115 U/L 02/05/2025 4:37 PM T [facility] AST 24 15 - 37 U/L 02/05/2025 4:37 PM [facility] ALT 36 16 - 63 U/L 02/05/2025 4:37 PM T [facility] TOTAL PROTEIN S/P/B 7.2 6.4 - 8.2 G/DL 02/05/2025 4:37 PM T [facility] ALBUMIN S/P/B 4.2 3.4 - 5.0 G/DL 02/05/2025 4:37 PM T [facility] ANION GAP 9.2 5 - 15 MMOL/L 02/05/2025 4:37 PM CDT [facility] Comment:REFERENCE RANGE NOT ESTABLISHED OSMOLALITY (CALC) 300 MOSM/KG 025 4:37 PM CDT [facility] Comment:REFERENCE RANGE NOT ESTABLISHED GFR ESTIMATE >90 >90 ML/MIN/1. 73 M2 02/05/2025 4:37 PM CDT [facility] GFR NOTES GFR REFERENCE S: 02/05/2025 4:[address] [facility] Comment: THE ESTIMATED GFR IS CALCULATED USING [...] Nadine Huang DO LABORATORY Final Re sult [facility] [address] [place] [address], * (ABNORMAL) LIPID PANEL (02/05/2025 10:24 AM CDT) CHOLESTEROL 186 <200 MG/DL 02/05/2025 4:37 PM CDT [facility] TRIGLYCERIDES 56 <150 MG/DL 02/05/2025 4:37 PM CDT [facility] HDL 53 >40 MG/DL 02/05/2025 4:37 PM CDT [facility] LDL-C 122(H) <100 MG/DL 02/05/2025 4:37 PM CDT [facility] VLDL CALCULATION 11 5 - 28 MG/DL 02/05/2025 4:37 PM CDT [facility] CHOL/HDL RATIO 3.5 0.0 - 4.0 02/05/2025 4:37 PM CDT [facility] LDL/HDL 2.3(H) 0.41 - 2.13 02/05/2025 4:37 PM CDT [facility] NON HDL CHOLESTEROL 133 <140 MG/DL 02/05/2025 4:37 PM CDT [facility] 02/05/2025 10:2 4 AM CDT us Nadine Huang DO LABORATORY Final Re sult [facility] [address] [place] [address], * (ABNORMAL) CBC W/DIFF AUTOMATED (02/05/2025 10:24 AM CDT) WBC 5.26 4.00 - 10.80 x10'3/uL 02/05/2025 3:30 PM CDT [facility] RBC 4.30(L) 4.50 - 6.10 x10'6/uL 02/05/2025 3:30 PM CDT [facility] HGB 13.8 13.0 - 18.0 G/DL 02/05/2025 3:30 PM CDT [facility] HCT 42.1 37.0 - 52.0 % 02/05/2025 3:30 PM CDT [facility] MCV 97.9 78.0 - 100.0 FL 02/05/2025 3:30 PM CDT [facility] MCH 32.1(H) 27.0 - 31.0 PG 02/05/2025 3:30 PM CDT [facility] MCHC 32.8(L) 33.0 - 36.0 G/DL 02/05/2025 3:30 PM CDT [facility] RDW 14.1 11.5 - 14.5 % 02/05/2025 3:30 PM CDT [facility] PLT 314 150 - 350 x10'3/uL 02/05/2025 3:30 PM CDT [facility] MPV 10.7(H) 7.4 - 10.4 FL 02/05/2025 3:30 PM CDT [facility] DIFFERENTIAL TYPE AUTOMATED DIFFERENTIAL 02/05/2025 3:30 PM CDT [facility] NEUTROPHILS % 68.2 % 02/05/2025 3:30 PM CDT [facility] LYMPHOCYTES % 18.6 % 02/05/2025 3:30 PM CDT [facility] MONOCYTES % 9.1 % 02/05/2025 3:30 PM CDT [facility] EOSINOPHILS % 2.9 % 02/05/2025 3:30 PM CDT [facility] BASOPHILS % 1.0 % 02/05/2025 3:30 PM CDT [facility] IMMATURE GRANS % 0.2 % 02/05/2025 3:30 PM CDT [facility] ABS. NEUTROPHILS 3.59 1.60 - 8.30 x10'3/uL 02/05/2025 3:30 PM CDT [facility] ABS. LYMPHOCYTES 0.98 0.80 - 4.70 x10'3/uL 02/05/2025 3:30 PM CDT [facility] ABS. MONOCYTES 0.48 0.00 - 1.50 x10'3/uL 02/05/2025 3:30 PM CDT [facility] ABS. EOSINOPHILS 0.15 0.00 - 0.40 x10'3/uL 02/05/2025 3:30 PM CDT [facility] ABS. BASOPHILS 0.05 0.00 - 0.20 x10'3/uL 02/05/2025 3:30 PM CDT [facility] ABS. IMMATURE GRANULOCYTES 0.01 0.00 - 0.03 x10'3/uL 02/05/2025 3:[address] [facility] 02/05/2025 10:2 4 AM CDT Nadine Huang DO LABORATORY Final Re sult [facility] [address] [place] [address], * OUTSIDE LAB (SCAN ORDER) (02/02/2025) Only the most recent of2 resultswithin the time period is included. 02/02/2025 [facility] Scanned SCANNING Final Resu [...] - 11/01/2022 4:10 PM CDT Performed at: - [facility] [id number] Loan Underwriter: Jr Doyle PhD, Phone: [phone] us Nadine Huang DO LABORATORY Final Re sult Performing Organization Address City/State/[facility] Co de Phone Number [facility] [address] [phone] [facility] 1 from Last 3 Months or Most Recently Relevant to Health Maintenance Insurance MEDICARE [place] [id number] Care Teams Grooming Assistant Relationship Specialty Start Date End Date Nadine Huang DO [address] [place] [address] [phone] PCP - General FAMILY PRACTICE 12/07/19
--- OUTSIDE RECORDS SUMMARY | 2025-04-19 01:34 | XMS_ITS | Clinical Summary ---
Author Organization [facility] lin Address [address] [facility] [place] [place] [address] Care Team Providers Care Outreach Representative Name Role Phone No, Pcp [employer] EQUIPMENT ERECTOR Primary Care Provider Unavailabl e Social History Tobacco Use Types Packs/Day Years Used Date Smoking Tobacco: Never Assessed Sex and Gender Information Value Date Recorded Sex Assigned at Not on file Legal Sex Male 3:39 PM EST Gender Identity Not on file Sexual Orientation Not on file Plan of Treatment Not on file Medical Devices Not on file Insurance [address] [address] MEDICARE Care Teams Outreach Representative Relationship Specialty Start Date End Date No, Pcp, STRUCTURAL STEEL EQUIPMENT ERECTOR N/A Do not use PCP - General Family Medicine 04/29/20
--- OUTSIDE RECORDS SUMMARY | 2025-04-19 01:34 | XMS_ITS | Clinical Summary ---
Author Organization [facility] [address] Address [address] [place] [address] Care Team Providers Care Electrical Installation Supervisor Name Role Phone Tyrone Cantrell MD, Nestor Unavailable [phone]- [phone] Jett Jacobson DO Primary Care Provide r Ryan Campbell Unavailable Unavailable Allergies Active Allergy Reactions Criticality Noted Date Comments Ibuprofen Other (See comments) 05/16/2022 Tetanus Toxoid Rash Medium 05/16/2022 Tetanus Vaccines And Toxoid Other (See comments),Rash Medium 05/16/2022 flu-like symptoms Medications mesalamine (LIALDA ORAL) Take 1 tablet [...] DAILY NEEDED FOR ERECTILE DYSFUNCTION 5 Active multivitamin tablet Take 1 tablet by mouth [address] (PROTONIX) 40 mg EC tablet TAKE 1 TABLET BY MOUTH EVERY 12 HOURS FOR SEVERE ESOPHAGITIS Active methylPREDNISol one (MEDROL DOSEPACK) 4 mg Dosepack Take by mouth 5 Active HYDROcodone-dean taminophen (NORCO) 5-325 mg per tablet Take 1 tablet by mouth 5 Active cyclobenzap-irr itant cntr irr2 10 mg kit Take 10 mg by mouth 5 Active cyclobenzaprine (FLEXERIL) 10 mg tablet Take 1 tablet (10 mg total) by mouth 2 (two) times a day as needed 5 Active Active Problems Problem Noted Date Diagnosed Date 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 Chills (without fever) 02/27/2021 Neuropathy 02/27/2021 Skin lesion of scalp 02/27/2021 Hoarseness 02/27/2021 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 Other pruritus 02/27/2021 Palpitations 02/25/2018 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 018 Encounters Date Type Department Care Team Description 03/31/2025 2:15 PM SUBSCRIPTION CLERK Office Visit [facility] Medicine Orthopaedic Surgery [address] [place] [address] Tracey Lund NP Back pain, unspecified back location, unspecified back pain laterality, unspecified chronicity (Primary Dx); Loosening of prosthesis of left total knee replacement, subsequent encounter 02/01/2025 Results Follow-Up [facility] [place] [facility] Orthopaedic Surgery [address] [place] [address] 2nd [address] [place] [address] Tracey Lund NP MS Bone Imaging 3 Phase, Synovasure 01/22/2025 7:20 AM CDT - 01/22/2025 11:59 PM CDT Hospital Encounter [facility] [address] [address] Discharge Disposition: Discharge to home or self care 01/22/2025 7:20 AM CDT - 01/22/2025 11:59 PM CDT Hospital Encounter [facility] [address] [address] 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; Pain in both knees, unspecified chronicity Discharge Disposition: Discharge to home or self care 01/22/2025 7:19 AM CDT - 01/22/2025 11:59 PM CDT Hospital Encounter [facility] Radiology [address] [address] Rajeev Ferrer MD Ponkowski, Michael James, MD Aftercare following right knee joint replacement surgery; Right knee pain, unspecified chronicity Discharge Disposition: Discharge to home or self care 01/20/2025 1:45 PM CDT Ancillary Procedure Radiology - [address] [place] [address] [address] [address] 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 01/20/2025 1:15 PM CDT Office Visit [facility] [place] [facility] Orthopaedic Surgery [address] [place] [address] [address] [place] [address] Tracey Lund NP 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 (Primary Dx); Pain in both knees, unspecified chronicity; Hip pain, bilateral; Aftercare following right knee joint replacement surgery; Right knee pain, unspecified chronicity 01/20/2025 12:45 PM CDT Ancillary Procedure Radiology - [address] [place] [address] [address] [phone] 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; Pain in both knees, unspecified chronicity 01/18/2025 3:00 PM CDT Lab [address] [address] 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; [...] on file Legal Sex Male 3:15 AM SUBSCRIPTION CLERK Gender Identity Not on file Sexual Orientation [...] 2:41 PM CDT) Synovial fluid us Tracey Litzy Kevon LIQUID YEAST SUPERVISOR LAB BODY FLUIDS AND STOOL S ORDERABLES [...] by: Lazara Avalos M.D. us Tracey Lund LIQUID YEAST SUPERVISOR IMG NM PROCEDURES Final R esult * Crystal Analysis, Body Fluid (01/22/2025 9:00 AM CDT) Specimen type, fld Synovial Comment:Testing performed by : [facility], [address] [place] [address], [place]., [address] Crystals Not Present Not Present NICHO ROCKWELL Comment:Testing performed by : [facility], [address] [place] [address], [place]., [address] Fluid 01/22/2025 9:00 AM CDT 01/22/2025 10:01 AM CDT Narrative NICHO NEFFWCH - 01/22/2025 11:48 AM CDT Left knee Tracey Lund LIQUID YEAST SUPERVISOR LAB BODY FLUIDS AND STOOL S ORDERABLES Final Result Performing Organization Address [facility] Co de Phone Number NICHO HARDINGCH [address] [facility] [place] [address] * Cell Differential, Body Fluid (01/22/2025 9:00 [...] CDT 01/22/2025 9:19 AM CDT Tracey Lund LIQUID YEAST SUPERVISOR LAB BODY FLUIDS AND STOOL S ORDERABLES Final Result Performing Organization Address [facility] de Phone Number NICHO HARDINGCH [address] [facility] [place] [address] * Cell count w/rflx diff, body fluid [...] CDT 01/22/2025 9:19 AM CDT Narrative NICHO HARDINGCH - 01/22/2025 10:17 AM CDT Left knee Tracey Lund LIQUID YEAST SUPERVISOR LAB BODY FLUIDS AND STOOL S ORDERABLES Final Result Performing Organization Address [facility] Phone Number N[facility]HO [facility] [address] [facility] [place] [address] * Mycology (fungal) culture Synovial fluid Knee, left (01/22/2025 9:00 AM CDT) Report Final Report: No fungus isolated Comment:Testing performed by : [facility], [address] [place] [address]., [id number] Synovial fluid (Knee, left) 01/22/2025 9:00 AM CDT 01/22/2025 10:08 AM CDT Narrative NICHO ROCKWELL - 02/19/2025 1:00 PM CDT Results may be compromised by the low volume of specimen received. Mycology cultures are held for 4 weeks. Tracey Lund NP LAB MICROBIOLOGY - GENERA L ORDERABLES Final Result Performing Organization Address [facility] Phone Number NICHO [facility] [address] [facility] [place] [address] * Aerobic and anaerobic culture and gram stain Synovial fluid Knee, left (01/22/2025 9:00 AM CDT) Direct Specimen Exam Stain: Rare polymorphonuclear leukocytes seen. No organisms seen. Comment:Testing performed by : [facility], [address] [place] [address]., [id number] Report Final Report: No growth NICHO ROCKWELL Comment:Testing performed by : [facility], [address] [place] [address]., [id number] Synovial fluid (Knee, left) 01/22/2025 9:00 AM CDT 01/22/2025 10:08 AM CDT Narrative NICHO BJWCH - 01/27/2025 8:47 AM CDT Results may be compromised by the low volume of specimen received. Tracey Lund NP LAB MICROBIOLOGY - GENERA L ORDERABLES Final Result Performing Organization Address [facility] de Phone Number NICHO BJWCH [address] [facility] [facility] [place] [address] * Mycobacteriology (AFB) culture Synovial fluid Knee, left (01/22/2025 9:00 AM CDT) Report Final Report: No Acid Fast Bacilli isolated Comment:Testing performed by : [facility], [address] [place] [address], [place]., [address] Synovial fluid (Knee, left) 01/22/2025 9:00 AM CDT 01/22/2025 10:08 AM CDT Narrative NICHO HARDINGCH - 03/19/2025 1:00 PM SUBSCRIPTION CLERK Mycobacteriology (AFB) cultures are held for 8 weeks. Tracey Lund NP LAB MICROBIOLOGY - GENERA L ORDERABLES Final Result Performing Organization Address [facility] de Phone Number NICHO BJWCH [address] [facility] [place] [address] * US Guided Aspiration or Injection of [...] was obtained. Prior to beginning the procedure, Maryneal Protocol was performed to confirm the patient's [...] was obtained. Prior to beginning the procedure, Maryneal Protocol was performed to confirm the patient's [...] Synovasure. Electronically signed by: Brien Yang MD Tracey Lund NP [facility] US PROCEDURES Final R esult * XR [...] osteoarthritis. Electronically signed by: Jimmie Fernandez M.D. Result [facility] Tracey Lund NP [facility] XR PROCEDURES Final R esult * XR [...] signed by: Leroy Cortez M.D. Tracey Lund LIQUID YEAST SUPERVISOR IMG XR PROCEDURES Final R esult * Differential, auto (01/18/2025 3:12 PM CDT) Pathologist [facility] Neutrophil abs 4.17 1.50 - 6.50 K/cumm Imm gran abs 0.02 0.00 - 0.10 K/cumm [facility] Lymphocyte abs 1.43 0.80 - 3.30 K/cumm [facility] Monocyte abs 0.60 0.20 - 0.80 K/cumm [facility] Eosinophil abs 0.19 0.00 - 0.50 K/cumm [facility] Basophil abs 0.09 0.00 - 0.10 K/cumm [facility] Neutrophil pct 64.2 % [facility] Comment: Interpretive Data Percent cell count reference ranges are not reported, since discordance with absolute values may lead to misinterpretation of CBC data. Current Interpretive Data was last revised on 2017. Imm gran pct 0.3 % [facility] Comment: Interpretive Data Percent cell count reference ranges are not reported, since discordance with absolute values may lead to misinterpretation of CBC data. Current Interpretive Data was last revised on 2017. Lymphocyte pct 22.0 % [facility] Comment: Interpretive Data Percent cell count reference ranges are not reported, since discordance with absolute values may lead to misinterpretation of CBC data. Current Interpretive Data was last revised on 2017. Monocyte pct 9.2 % [facility] Comment: Interpretive Data Percent cell count reference ranges are not reported, since discordance with absolute values may lead to misinterpretation of CBC data. Current Interpretive Data was last revised on 2017. Eosinophil pct 2.9 % [facility] Comment: Interpretive Data Percent cell count reference ranges are not reported, since discordance with absolute values may lead to misinterpretation of CBC data. Current Interpretive Data was last revised on 2017. Basophil pct 1.4 % [facility] Comment: Interpretive Data Percent cell count reference ranges are not reported, since discordance with absolute values may lead to misinterpretation of CBC data. Current Interpretive Data was last revised on 2017. Blood 01/18/2025 3:12 PM CDT 01/18/2025 6:36 PM CDT us Tracey Lund LIQUID YEAST SUPERVISOR LAB BLOOD ORDERABLES Nirmala l Result Performing Organization Address [facility] Co de Phone Number [facility] [address] [facility] Department [place] [address] * (ABNORMAL) CBC with auto differential (01/18/2025 3:12 PM CDT) WBC 6.50 3.80 - 9.90 K/cumm Hgb 14.3 13.0 - 17.5 g/dL [facility] Hct 43.8 38.9 - 50.3 % [facility] Plt 307 150 - 400 K/cumm [facility] MPV 10.6 9.1 - 12.3 fL [facility] RBC 4.54 4.30 - 5.80 M/cumm [facility] MCV 96.5(H) 81.3 - 96.4 fL [facility] MCH 31.5 27.1 - 33.3 pg [facility] MCHC 32.6 32.3 - 35.7 g/dL [facility] RDW CV 14.0 11.1 - 14.9 % [facility] RDW SD 49.7(H) 35.7 - 48.1 fL [facility] NRBC abs 0.00 0.00 - 0.01 K/cumm [facility] Blood 01/18/2025 3:12 PM CDT 01/18/2025 6:36 PM CDT Tracey Lund LIQUID YEAST SUPERVISOR LAB BLOOD ORDERABLES Nirmala l Result Performing Organization Address [facility] Co de Phone Number [facility] [address] * Erythrocyte sedimentation rate (01/18/2025 3:12 PM CDT) Erythrocyte sedimentation rate 13 1 - 20 mm/hr Blood 01/18/2025 3:12 PM CDT 01/18/2025 6:36 PM CDT Tracey Lund LIQUID YEAST SUPERVISOR LAB BLOOD ORDERABLES Nirmala l Result Performing Organization Address [facility] Co de Phone Number [id number] [address] * CRP (acute phase) (01/18/2025 3:12 PM CDT) CRP 0.6 <=10.0 mg/L Blood 01/18/2025 3:12 PM CDT 01/18/2025 6:36 PM CDT Tracey Lund LIQUID YEAST SUPERVISOR LAB BLOOD ORDERABLES Nirmala l Result Performing Organization Address [facility] Co de Phone Number [address] [address] from Last 3 Months Insurance [facility] MEDICARE [facility] MEDICARE Address: [facility] [address] [place] [address] [facility] MEDICARE [facility] MEDICARE Address[address] [address] [facility] MEDICARE [facility] MEDICARE Address: [address] [address] Care Teams Electrical Installation Supervisor Relationship Specialty Start Date End Date Jett Jacobson DO [address] [place] [id number] PCP - General Family Medicine 02/27/21 Nestor Hansen Jr., MD Medical Oncologist/Patient Information Coordinator Medical Oncology 12/26/17 Ryan Campbell Primary Histologic Aide 01/14/25
[2025-04-19 01:47] VITALS: BP 181/93; PULSE 72; RESP 12; TEMP 36.9; O2SAT 98
[2025-04-19 02:41] LABS: Hematocrit 37.1 % (42.0-52.0); Hemoglobin 12.1 g/dL (14.0-18.0); Immature Granulocyte Percent A 0.4 % (0-0.5); Lymphocytes Absolute Auto 0.65 K/mm3 (0.9-3.2); Mean Corpuscular HGB Conc 32.6 g/dl (32-36); Mean Corpuscular Hemoglobin 30.8 pg (26-34); Mean Corpuscular Volume 94.4 fl (80-100); Nucleated Red Blood Cells Absolute Auto 0.000 K/mm3 (0.0-0.012); Nucleated Red Blood Cells Perc 0.0 % (0.0-0.2); Platelet Count Result 321 k/mm3 (150-375); Red Blood Count 3.93 M/mm3 (4.6-6.20); White Blood Count 8.5 K/mm3 (4.5-10.0)
[2025-04-19 02:46] VITALS: BP 161/84; PULSE 78; RESP 18; O2SAT 97
[2025-04-19 02:55] LABS: Alanine Aminotransferase 28 U/L (6-50); Albumin Level 4.2 g/dL (3.5-5.1); Alkaline Phosphatase 81 U/L (38-126); Anion Gap 7 mmol/L (4-12); Aspartate Amino Transferase 33 U/L (17-59); Bilirubin,Total 0.5 mg/dL (0.2-1.3); Blood Urea Nitrogen 13 mg/dL (9-20); Calcium 8.8 mg/dL (8.4-10.2); Carbon Dioxide 26 mmol/L (22-30); Chloride 106 mmol/L (98-107); Estimated Glomerular Filt Rate > 60; Glucose 136 mg/dL (65-110); Lipase 56 U/L (23-300); Potassium 3.6 mmol/L (3.4-5.0); Sodium 139 mmol/L (137-145); Total Protein 7.3 g/dL (6.3-8.2)
[2025-04-19] MEDS: SODIUM CHLORIDE 0.9% IV 1,000 ML 999 ML IV CONT (03:57)
--- OUTSIDE RECORDS SUMMARY | 2025-04-19 03:58 | XMS_ITS | Clinical Summary ---
Author Organization [employer] [facility] Address [address] [facility] [place] [address] Care Team Providers Care Serger Name Role Phone No, Pcp GRAPHIC EDITOR Primary Care Provider Unavailabl e Social History Tobacco Use Types Packs/Day Years Used Date Smoking Tobacco: Never Assessed Sex and Gender Information Value Date Recorded Sex Assigned at Not on file Legal Sex Male 3:39 PM EST Gender Identity Not on file Sexual Orientation Not on file Plan of Treatment Not on file Medical Devices Not on file [place] [address] [place] [address] MEDICARE Care Teams Serger Relationship Specialty Start Date End Date No, Pcp, GRAPHIC EDITOR N/A Do not use PCP - General Family Medicine 04/29/20
--- OUTSIDE RECORDS SUMMARY | 2025-04-19 03:58 | XMS_ITS | Clinical Summary ---
Author Organization [facility] [address] Address [address] [place] [address] Care Team Providers Care Pharmacy Operations Manager Name Role Phone Tyrone Cantrell MD, Nestor Unavailable [phone] Jett Jacobson DO Primary Care Provide r [...] Department Care Team Description 03/31/2025 2:15 PM PUBLIC HEALTH DIRECTOR Office Visit [facility] Medicine Orthopaedic Surgery [address] [facility] 2nd Floor [address] [place] [address] Tracey Lund NP Back pain, unspecified back location, unspecified back pain laterality, unspecified chronicity (Primary Dx); Loosening of prosthesis of left total knee replacement, subsequent encounter 02/01/2025 Results Follow-Up [facility] Orthopaedic Surgery [address] [place] [address] 2nd Floor [address] [place] [address] Tracey Lund NP [place] Bone Imaging 3 Phase, Synovasure 01/22/2025 7:20 AM CDT - 01/22/2025 11:59 PM CDT Hospital Encounter [facility] Imaging [address] [address] Discharge Disposition: Discharge to home or self care 01/22/2025 7:20 AM CDT - 01/22/2025 11:59 PM CDT Hospital Encounter [facility] Imaging [address] [address] 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; Pain in both knees, unspecified chronicity Discharge Disposition: Discharge to home or self care 01/22/2025 7:19 AM CDT - 01/22/2025 11:59 PM CDT Hospital Encounter [facility] Radiology [address] [address] Rajeev Ferrer MD Ponkowski, Michael James, MD Aftercare following right knee joint replacement surgery; Right knee pain, unspecified chronicity Discharge Disposition: Discharge to home or self care 01/20/2025 1:45 PM CDT Ancillary Procedure Radiology - [address] [place] [address] [address] [address] 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 01/20/2025 1:15 PM CDT Office Visit [facility] Orthopaedic Surgery [address] [place] [address] 2nd Floor [address] [place] [address] Tracey Lund NP 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 (Primary Dx); Pain in both knees, unspecified chronicity; Hip pain, bilateral; Aftercare following right knee joint replacement surgery; Right knee pain, unspecified chronicity 01/20/2025 12:45 PM CDT Ancillary Procedure Radiology - [address] [place] [address] [address] [address] 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; Pain in both knees, unspecified chronicity 01/18/2025 3:00 PM CDT Lab [address] [address] 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; [...] on file Legal Sex Male 3:15 AM PUBLIC HEALTH DIRECTOR Gender Identity Not on file Sexual Orientation [...] CDT) Synovial fluid us Tracey Litzy Kevon [employer] LAB BODY FLUIDS AND STOOL S ORDERABLES [...] by: Lazara Avalos M.D. us Tracey Lund [employer] IMG NM PROCEDURES Final R esult * Crystal Analysis, Body Fluid (01/22/2025 9:00 AM CDT) Specimen type, fld Synovial Comment:Testing performed by : [facility], [address] [place] [address], [place]., [address] Crystals Not Present Not Present NICHO ROCKWELL Comment:Testing performed by : [facility], [address] [place] [address], [place]., [address] Fluid 01/22/2025 9:00 AM CDT 01/22/2025 10:01 AM CDT Narrative NICHO NEFFWCH - 01/22/2025 11:48 AM CDT Left knee Tracey Lund [employer] LAB BODY FLUIDS AND STOOL S ORDERABLES Final Result Performing Organization Address [facility] Co de Phone Number NICHO HARDINGCH [address] [facility] [place] [address] * Cell Differential, Body Fluid (01/22/2025 9:00 [...] CDT 01/22/2025 9:19 AM CDT Tracey Lund [employer] LAB BODY FLUIDS AND STOOL S ORDERABLES Final Result Performing Organization Address [facility] de Phone Number NICHO HARDINGCH [address] [facility] [place] [address] * Cell count w/rflx diff, body fluid [...] 10:17 AM CDT Left knee Tracey Lund [employer] LAB BODY FLUIDS AND STOOL S ORDERABLES Final Result Performing Organization Address [facility] Phone Number N[facility]HO [facility] [address] [facility] [place] [address] * Mycology (fungal) culture Synovial fluid Knee, left (01/22/2025 9:00 AM CDT) Report Final Report: No fungus isolated Comment:Testing performed by : [facility], [address] [place] [address]., [id number] Synovial fluid (Knee, left) 01/22/2025 9:00 AM CDT 01/22/2025 10:08 AM CDT Narrative NICHO ROCKWELL - 02/19/2025 1:00 PM CDT Results may be compromised by the low volume of specimen received. Mycology cultures are held for 4 weeks. Tracey Lund NP LAB MICROBIOLOGY - GENERA L ORDERABLES Final Result Performing Organization Address [facility] Phone Number NICHO [facility] [address] [facility] [place] [address] * Aerobic and anaerobic culture and gram stain Synovial fluid Knee, left (01/22/2025 9:00 AM CDT) Direct Specimen Exam Stain: Rare polymorphonuclear leukocytes seen. No organisms seen. Comment:Testing performed by : [facility], [address] [place] [address]., [id number] Report Final Report: No growth NICHO ROCKWELL Comment:Testing performed by : [facility], [address] [place] [address]., [id number] Synovial fluid (Knee, left) 01/22/2025 9:00 AM CDT 01/22/2025 10:08 AM CDT Narrative NICHO BJWCH - 01/27/2025 8:47 AM CDT Results may be compromised by the low volume of specimen received. Tracey Lund NP LAB MICROBIOLOGY - GENERA L ORDERABLES Final Result Performing Organization Address [facility] de Phone Number NICHO BJWCH [address] [facility] [place] [address] * Mycobacteriology (AFB) culture Synovial fluid Knee, left (01/22/2025 9:00 AM CDT) Report Final Report: No Acid Fast Bacilli isolated Comment:Testing performed by : [facility], [address] [place] [address], [place]., [address] Synovial fluid (Knee, left) 01/22/2025 9:00 AM CDT 01/22/2025 10:08 AM CDT Narrative NICHO HARDINGCH - 03/19/2025 1:00 PM PUBLIC HEALTH DIRECTOR Mycobacteriology (AFB) cultures are held for 8 weeks. Tracey Lund NP LAB MICROBIOLOGY - GENERA L ORDERABLES Final Result Performing Organization Address [facility] de Phone Number NICHO BJWCH [address] [facility] [place] [address] * US Guided Aspiration or Injection of [...] was obtained. Prior to beginning the procedure, [place] Protocol was performed to confirm the patient's [...] clear straw-colored fluid was aspirated. Procedure Note rBien Yang MD - 01/22/2025 EXAMINATION: Left knee [...] was obtained. Prior to beginning the procedure, [place] Protocol was performed to confirm the patient's [...] by: Brien Yang MD Tracey Lund NP [facility] US PROCEDURES Final R esult * XR [...] Electronically signed by: Jimmie Fernandez M.D. Result [facility] Tracey Lund NP [facility] XR PROCEDURES Final R esult * XR [...] signed by: Leroy Cortez M.D. Tracey Lund [employer] IMG XR PROCEDURES Final R esult * Differential, auto (01/18/2025 3:12 PM CDT) Pathologist [facility] Neutrophil abs 4.17 1.50 - 6.50 K/cumm Imm gran abs 0.02 0.00 - 0.10 K/cumm [facility] Lymphocyte abs 1.43 0.80 - 3.30 K/cumm [facility] Monocyte abs 0.60 0.20 - 0.80 K/cumm [facility] Eosinophil abs 0.19 0.00 - 0.50 K/cumm [facility] Basophil abs 0.09 0.00 - 0.10 K/cumm [facility] Neutrophil pct 64.2 % [facility] Comment: Interpretive Data Percent cell count reference ranges are not reported, since discordance with absolute values may lead to misinterpretation of CBC data. Current Interpretive Data was last revised on 2017. Imm gran pct 0.3 % [facility] Comment: Interpretive Data Percent cell count reference ranges are not reported, since discordance with absolute values may lead to misinterpretation of CBC data. Current Interpretive Data was last revised on 2017. Lymphocyte pct 22.0 % [facility] Comment: Interpretive Data Percent cell count reference ranges are not reported, since discordance with absolute values may lead to misinterpretation of CBC data. Current Interpretive Data was last revised on 2017. Monocyte pct 9.2 % [facility] Comment: Interpretive Data Percent cell count reference ranges are not reported, since discordance with absolute values may lead to misinterpretation of CBC data. Current Interpretive Data was last revised on 2017. Eosinophil pct 2.9 % [facility] Comment: Interpretive Data Percent cell count reference ranges are not reported, since discordance with absolute values may lead to misinterpretation of CBC data. Current Interpretive Data was last revised on 2017. Basophil pct 1.4 % [facility] Comment: Interpretive Data Percent cell count reference ranges are not reported, since discordance with absolute values may lead to misinterpretation of CBC data. Current Interpretive Data was last revised on 2017. Blood 01/18/2025 3:12 PM CDT 01/18/2025 6:36 PM CDT us Tracey Lund STEEL HAND[employer] LAB BLOOD ORDERABLES Nirmala l Result Performing Organization Address City/[facility] Co de Phone Number [facility] [address] [facility] [place] [address] * (ABNORMAL) CBC with auto differential (01/18/2025 3:12 PM CDT) WBC 6.50 3.80 - 9.90 K/cumm Hgb 14.3 13.0 - 17.5 g/dL [facility] Hct 43.8 38.9 - 50.3 % [facility] Plt 307 150 - 400 K/cumm [facility] MPV 10.6 9.1 - 12.3 fL [facility] RBC 4.54 4.30 - 5.80 M/cumm [facility] MCV 96.5(H) 81.3 - 96.4 fL [facility] MCH 31.5 27.1 - 33.3 pg [facility] MCHC 32.6 32.3 - 35.7 g/dL [facility] RDW CV 14.0 11.1 - 14.9 % [facility] RDW SD 49.7(H) 35.7 - 48.1 fL [facility] NRBC abs 0.00 0.00 - 0.01 K/cumm [facility] Blood 01/18/2025 3:12 PM CDT 01/18/2025 6:36 PM CDT Tracey Lund STEEL HAND[employer]ER LAB BLOOD ORDERABLES Nirmala l Result Performing Organization Address City/[facility] Co de Phone Number [address] [address] * Erythrocyte sedimentation rate (01/18/2025 3:12 PM CDT) Erythrocyte sedimentation rate 13 1 - 20 mm/hr Blood 01/18/2025 3:12 PM CDT 01/18/2025 6:36 PM CDT Tracey Lund STE[employer] HAND[employer] LAB BLOOD ORDERABLES Nirmala l Result Performing Organization Address [facility] Co de Phone Number [id number] [address] * CRP (acute phase) (01/18/2025 3:12 PM CDT) CRP 0.6 <=10.0 mg/L Blood 01/18/2025 3:12 PM CDT 01/18/2025 6:36 PM CDT Tracey Lund STE[employer] HAND[employer] LAB BLOOD ORDERABLES Nirmala l Result Performing Organization Address [facility] Co de Phone Number [address] [address] from Last 3 Months Insurance [facility] MEDIC[facility] Address: [address] [facility] [address] [place] [address] [facility] Address: [address] [address] [facility]IC[facility] Address: [address] [address] Care Teams Pharmacy Operations Manager Relationship Specialty Start Date End Date Jett Jacobson DO [address] [place] [id number] PCP - General Family Medicine 02/27/21 Nestor Hansen Jr., MD Medical Oncologist/Environmental Services Director Medical Oncology 12/26/17 Ryan Campbell Primary Wood Barker 01/14/25
--- OUTSIDE RECORDS SUMMARY | 2025-04-19 03:58 | XMS_ITS | Clinical Summary ---
Author Organization [facility] Address [address] [place] [address] Care Team Providers Care Associate Merchandiser Name Role Phone Nadine Huang Elise DO [...] Type Department Care Team Description 04/13/2025 Telephone [facility] Family & Internal Medicine [address] [address] Nadine Hunag, DO Information 04/13/2025 Telephone [facility] Family & Internal [address] [address] Nadine Huang, DO Xray/ultrasound Order 04/07/2025 Scan [facility] SRVCS Scanned, [facility] 03/23/2025 Scan [facility] INFO SRVCS Scanned, [facility] 03/08/2025 4:14 PM HOTEL SERVICES SALES REPRESENTATIVE - 03/08/2025 11:59 PM HOTEL SERVICES SALES REPRESENTATIVE Hospital Encounter [facility] Outpatient Therapy [facility] [address] [place] [address] Newton Umaña PA Haas, Matthew R, PT Discharge Disposition: Home or Self Care (Routine Discharge) 03/08/2025 Travel 03/01/2025 1:17 PM HOTEL SERVICES SALES REPRESENTATIVE - 03/01/2025 11:59 PM HOTEL SERVICES SALES REPRESENTATIVE Hospital Encounter [facility] Outpatient Therapy [address] [address] Newton Umaña PA Haas, Matthew R, PT Discharge Disposition: Home or Self Care (Routine Discharge) 03/01/2025 Travel 02/24/2025 2:40 PM CDT Office Visit [facility] Orthopedic & Sports Medicine - [place] [address] [place] [address] Newton Umaña PA Follow Up (Bilateral hip pain, Left hip (new problem)) 02/24/2025 Travel 02/19/2025 Orders Only [facility] Orthopedic & Sports Medicine - [place] [address] [place] [address] Newton Umaña PA 02/18/2025 Telephone [facility] Family & Internal Medicine [address] [address] Nadine Huang, DO Referral Request 02/12/2025 11:20 AM CDT Office Visit [facility] Family & Internal Medicine [address] [address] Nadine Huang DO Hypertension (Patient presents for [...] allows. The patient has appt scheduled with [facility] ortho. ) 02/12/2025 Travel 02/11/2025 Scan [facility] INFO SRVCS Scanned, Doc [facility] Colonoscopy Report (SCAN); EGD (SCAN) 02/05/2025 10:00 AM CDT Laboratory Only [facility] Family & Internal [address] [address] Nadine Huang DO 02/05/2025 Travel 02/02/2025 Scan [facility] INFO SRVCS Scanned, Doc [facility] Lab (SCAN) 01/28/2025 Scan [facility] INFO SRVCS Scanned, [facility] Lab (SCAN) 01/25/2025 Telephone [facility] Orthopedic & Sports Medicine - [address] [address] Newton Umaña PA Appointment Request [...] 11/17/2018 Pneumococcal (Prevnar 13) 12/07/2019,08/31/2015 Zoster (Zostavax) [address] Unt/0.65Ml 01/30/2017, Family History Medical History Relation [...] Description 07/14/2025 11:20 AM CDT Office Visit [facility] Medical Group Family & Internal Medicine - [address] [address] Nadine Huang, [address] [place] [address] Health Maintenance Due Date Last Done Comments [...] AAA SCREENING Completed 11/09/2022, 02/22/2021 PHQ-2 (Physician [place]) Completed 09/08/2024 Hepatitis A Vaccines Aged Out [...] * EGD GENERIC (SCAN ORDER) (02/11/2025) 02/11/2025 [facility] Scanned SCANNING Final Resu lt * COLONOSCOPY GENERIC (SCAN ORDER) (02/11/2025) 02/11/2025 [facility] Scanned SCANNING Final Resu lt * TSH W/REFLEX (02/05/2025 10:24 AM CDT) TSH 1.148 0.358 - 3.740 uIU/ML 02/05/2025 4:37 PM CDT [facility] 02/05/2025 10:2 4 AM CDT Nadine Huang DO LABORATORY Final Re sult [facility] [address] [place] [address], * (ABNORMAL) HEMOGLOBIN, GLYCOSYLATED (02/05/2025 10:24 AM CDT) HGB A1C 6.1 4.5 - 6.2 % 02/05/2025 3:10 PM CDT [facility] ESTIMATED AVG GLUCOSE 128(H) 74 - 106 MG/DL 02/05/2025 3:10 PM CDT [facility] 02/05/2025 10:2 4 AM CDT us Nadine Huang DO LABORATORY Final Re sult Performing Organization Address [facility] Co de Phone Number [facility] [address] [place] [address], [place] [phone] * PROSTATE SPECIFIC ANTIGEN,SCREENING (02/05/2025 10:24 AM CDT) PSA 0.90 <4.00 NG/ML 02/05/2025 2:29 PM CDT [facility] Comment: ASSAY PERFORMED BY ENZYME IMMUNOASSAY METHODOLOGY USING SIEMENS DIMENSION REAGENT. PATIENT RESULTS DETERMINED BY ASSAYS FROM DIFFERENT MANUFACTURERS AND/OR BY DIFFERENT METHODS MAY NOT BE COMPARABLE. 02/05/2025 10:2 4 AM CDT us Nadine Huang DO OTHER Final Re sult Performing Organization Address [facility] Co de Phone Number [facility] [address] [place] [address], [place] [phone] * (ABNORMAL) COMPREHENSIVE METABOLIC PANEL (02/05/2025 10:24 AM CDT) SODIUM S/P/B 145 136 - 145 MMOL/L 02/05/2025 4:37 PM CDT [facility] POTASSIUM S/P/B 3.7 3.5 - 5.1 MMOL/L 02/05/2025 4:37 PM CDT [facility] CHLORIDE S/P/B 106 98 - 107 MMOL/L 02/05/2025 4:37 PM CDT -[facility] CO2 29.8 21 - 32 MMOL/L 02/05/2025 4:37 PM T [facility] GLUCOSE 102(H) 70 - 99 MG/DL 02/05/2025 4:37 PM T [facility] BUN 13 7 - 18 MG/DL 02/05/2025 4:37 PM CDT [facility] CREATININE S/P/B 0.86 0.70 - 1.30 MG/DL 02/05/2025 4:37 PM T [facility] CALCIUM S/P/B 8.8 8.4 - 10.5 MG/DL 02/05/2025 4:37 PM T [facility] BILIRUBIN TOTAL S/P/B 0.5 0.2 - 1.0 MG/DL 02/05/2025 4:37 PM T [facility] ALKALINE PHOSPHATASE S/P/B 70 45 - 115 U/L 02/05/2025 4:37 PM T [facility] AST 24 15 - 37 U/L 02/05/2025 4:37 PM [facility] ALT 36 16 - 63 U/L 02/05/2025 4:37 PM T [facility] TOTAL PROTEIN S/P/B 7.2 6.4 - 8.2 G/DL 02/05/2025 4:37 PM T [facility] ALBUMIN S/P/B 4.2 3.4 - 5.0 G/DL 02/05/2025 4:37 PM T [facility] ANION GAP 9.2 5 - 15 MMOL/L 02/05/2025 4:37 PM CDT [facility] Comment:REFERENCE RANGE NOT ESTABLISHED OSMOLALITY (CALC) 300 MOSM/KG 025 4:37 PM CDT [facility] Comment:REFERENCE RANGE NOT ESTABLISHED GFR ESTIMATE >90 >90 ML/MIN/1. 73 M2 02/05/2025 4:37 PM CDT [facility] GFR NOTES GFR REFERENCE S: 02/05/2025 4:37 PM CDT [facility] Comment: THE ESTIMATED GFR IS CALCULATED USING [...] Nadine Huang DO LABORATORY Final Re sult [facility] [address] [place] [address], * (ABNORMAL) LIPID PANEL (02/05/2025 10:24 AM CDT) CHOLESTEROL 186 <200 MG/DL 02/05/2025 4:37 PM CDT [facility] TRIGLYCERIDES 56 <150 MG/DL 02/05/2025 4:37 PM CDT [facility] HDL 53 >40 MG/DL 02/05/2025 4:37 PM CDT [facility] LDL-C 122(H) <100 MG/DL 02/05/2025 4:37 PM CDT [facility] VLDL CALCULATION 11 5 - 28 MG/DL 02/05/2025 4:37 PM CDT [facility] CHOL/HDL RATIO 3.5 0.0 - 4.0 02/05/2025 4:37 PM CDT [facility] LDL/HDL 2.3(H) 0.41 - 2.13 02/05/2025 4:37 PM CDT [facility] NON HDL CHOLESTEROL 133 <140 MG/DL 02/05/2025 4:37 PM CDT [facility] 02/05/2025 10:2 4 AM CDT us Nadine Huang DO LABORATORY Final Re sult [facility] [address] [place] [address], * (ABNORMAL) CBC W/DIFF AUTOMATED (02/05/2025 10:24 AM CDT) WBC 5.26 4.00 - 10.80 x10'3/uL 02/05/2025 3:30 PM CDT [facility] RBC 4.30(L) 4.50 - 6.10 x10'6/uL 02/05/2025 3:30 PM CDT [facility] HGB 13.8 13.0 - 18.0 G/DL 02/05/2025 3:30 PM CDT [facility] HCT 42.1 37.0 - 52.0 % 02/05/2025 3:30 PM CDT [facility] MCV 97.9 78.0 - 100.0 FL 02/05/2025 3:30 PM CDT [facility] MCH 32.1(H) 27.0 - 31.0 PG 02/05/2025 3:30 PM CDT [facility] MCHC 32.8(L) 33.0 - 36.0 G/DL 02/05/2025 3:30 PM CDT [facility] RDW 14.1 11.5 - 14.5 % 02/05/2025 3:30 PM CDT [facility] PLT 314 150 - 350 x10'3/uL 02/05/2025 3:30 PM CDT [facility] MPV 10.7(H) 7.4 - 10.4 FL 02/05/2025 3:30 PM CDT [facility] DIFFERENTIAL TYPE AUTOMATED DIFFERENTIAL 02/05/2025 3:30 PM CDT [facility] NEUTROPHILS % 68.2 % 02/05/2025 3:30 PM CDT [facility] LYMPHOCYTES % 18.6 % 02/05/2025 3:30 PM CDT [facility] MONOCYTES % 9.1 % 02/05/2025 3:30 PM CDT [facility] EOSINOPHILS % 2.9 % 02/05/2025 3:30 PM CDT [facility] BASOPHILS % 1.0 % 02/05/2025 3:30 PM CDT [facility] IMMATURE GRANS % 0.2 % 02/05/2025 3:30 PM CDT [facility] ABS. NEUTROPHILS 3.59 1.60 - 8.30 x10'3/uL 02/05/2025 3:30 PM CDT [facility] ABS. LYMPHOCYTES 0.98 0.80 - 4.70 x10'3/uL 02/05/2025 3:30 PM CDT [facility] ABS. MONOCYTES 0.48 0.00 - 1.50 x10'3/uL 02/05/2025 3:30 PM CDT [facility] ABS. EOSINOPHILS 0.15 0.00 - 0.40 x10'3/uL 02/05/2025 3:30 PM CDT [facility] ABS. BASOPHILS 0.05 0.00 - 0.20 x10'3/uL 02/05/2025 3:30 PM CDT [facility] ABS. IMMATURE GRANULOCYTES 0.01 0.00 - 0.03 x10'3/uL 02/05/2025 3:30 PM CDT [facility] 02/05/2025 10:2 4 AM CDT Nadine Huang DO LABORATORY Final Re sult [facility] [address] [place] [address], * OUTSIDE LAB (SCAN ORDER) (02/02/2025) Only [...] 11/01/2022 4:10 PM CDT Performed at: - [facility] [id number] Full Stack Software Engineer: Jr Doyle PhD, Phone: [phone] us Nadine Huang DO LABORATORY Final Re sult Performing Organization Address City/State/[facility] Co de Phone Number [facility] [address] [phone] [facility] 1 from Last 3 Months or Most Recently Relevant to Health Maintenance Insurance MEDICARE [place] [id number] Care Teams Associate Merchandiser Relationship Specialty Start Date End Date Nadine Huang DO [address] [place] [address] [phone] PCP - General FAMILY PRACTICE 12/07/19
[2025-04-19 04:00] VITALS: BP 153/87; PULSE 87; RESP 19; O2SAT 98
[2025-04-19 04:14] LABS: Add Urine Microscopic? YES; Appearance Urine Clear (Clear); Glucose Urine UA Negative (Negative); Leukocyte Esterase Ur Trace LEU/UL (Negative); Nitrate Urine Negative (Negative); Non Pathogenic Casts 0-2; Specific Grav Ur 1.019 (1.001-1.035)
--- NOTE | 2025-04-19 04:27 | ED.GENADULT ---
HPI - General Adult General Chief complaint: Abdominal Pain <Gomez Galindo MD - Last Filed: 04/19/25 06:50> Stated complaint: Lower abd pain I think its a kidney stone <Gomez Galindo MD - Last Filed: 04/19/25 06:50> Time Seen by Provider: 04/19/25 03:37 <Gomez Galindo MD - Last Filed: 04/19/25 06:50> History of Present Illness HPI narrative: Patient 74-year-old gentleman presents emergency department with chief complaint of hematuria for 4 days and low abdominal pressure patient reports he scheduled for a Watchman procedure at [facility] patient reports that he is concerned that he may have a kidney stone the patient reports that he is not on blood thinners and reports that he has had intermittent episodes of hematuria <Gomez Galindo MD - Last Filed: 04/19/25 06:50> Related Data Home medications: Home Medications ?Medication ?Instructions ?Recorded ?Confirmed ?Last Taken ?Type multivitamin 1 tablet PO DAILY 02/14/22 02/11/25 02/10/25 History apixaban 5 mg tablet (Eliquis) 5 mg PO ONCE 01/28/25 02/11/25 01/20/25 History lisinopril 20 mg tablet 20 mg PO DAILY 01/28/25 02/03/25 Unknown History metoprolol succinate 50 mg 50 mg PO DAILY 01/28/25 02/03/25 Unknown History tablet,extended release 24 hr ascorbic acid (vitamin C) 1,000 mg 1 g PO DAILY 02/03/25 02/11/25 02/10/25 History tablet (Vitamin C) <Gomez Galindo MD - Last Filed: 04/19/25 06:50> Allergies/adverse reactions: Allergies Allergy/AdvReac Type Severity Reaction Status Date / Time ibuprofen Allergy Unknown Ulcers Verified 03/23/25 08:05 Tetanus Vaccines and Toxoid Allergy Unknown Skin Verified 03/23/25 08:05 Reaction tetanus toxoid, adsorbed AdvReac Mild Other Verified 03/23/25 08:05 <Gomez Galindo MD - Last Filed: 04/19/25 06:50> Review of Systems Review of Systems: A 10 system review of systems was completed on the patient and is negative except for what is stated in the HPI. Nursing and ancillary documentation was reviewed. 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 Pre-diabetes GERD (gastroesophageal reflux disease) Cancer Kidney disease Allergies <Gomez Galindo MD - Last Filed: 04/19/25 06:50> Surgical History Surgical History: Surgical History Hx of inguinal hernia surgery History of knee replacement H/O lithotripsy <Gomez Galindo MD - Last Filed: 04/19/25 06:50> Family History Family History: Family History Mother Diabetes mellitus Patient's mother is , Onset Age: 80 Father Hypertension Cerebrovascular accident Patient's father is , Onset Age: 80 Sibling Depression <Gomez Galindo MD - Last Filed: 04/19/25 06:50> Social History Social History: Social History Smoking status: Never smoker Alcohol intake: current Drinks per week: 2 Alcohol use details: 2 shots bourbon & 2 beers per week Substance use: never Substance use type: does not use Living arrangements: with family Spiritual care concerns: No <Gomez Galindo MD - Last Filed: 04/19/25 06:50> Exam Narrative: GENERAL: Well-appearing, well-nourished, and in no acute distress. HEAD: Normocephalic, atraumatic. EYES: PERRLA and EOMI. ENT: Nares clear, no rhinorrhea or epistaxis. Mucous membranes moist. NECK: Supple. CHEST: Clear to auscultation. No respiratory distress. HEART: Regular rate and rhythm. No murmur heard. Normal peripheral pulses. ABDOMEN: Soft, nontender, nondistended, normal active bowel sounds. EXTREMITIES: Normal range of motion. No edema. SKIN: Warm, dry, no rash. NEURO: No focal deficits. Alert and oriented x3. PSYCH: Normal mood and affect. <Gomez Galindo MD - Last Filed: 04/19/25 06:50> Course Vital Signs Vital signs: Vital Signs Temperature 98.5 F 04/19/25 01:47 Pulse Rate 72 04/19/25 01:47 Respiratory Rate 12 04/19/25 01:47 Blood Pressure 181/93 H 04/19/25 01:47 Pulse Oximetry 98 04/19/25 01:47 Oxygen Delivery Room Air 04/19/25 01:47 Temperature 98.5 F 04/19/25 01:47 Pulse Rate 78 04/19/25 08:22 Respiratory Rate 16 04/19/25 08:22 Blood Pressure 160/91 H 04/19/25 08:22 Pulse Oximetry 97 04/19/25 08:22 Oxygen Delivery Room Air 04/19/25 01:47 <Gomez Galindo MD - Last Filed: 04/19/25 06:50> Vital Signs Temperature 98.5 F 04/19/25 01:47 Pulse Rate 72 04/19/25 01:47 Respiratory Rate 12 04/19/25 01:47 Blood Pressure 181/93 H 04/19/25 01:47 Pulse Oximetry 98 04/19/25 01:47 Oxygen Delivery Room Air 04/19/25 01:47 Temperature 98.5 F 04/19/25 01:47 Pulse Rate 78 04/19/25 08:22 Respiratory Rate 16 04/19/25 08:22 Blood Pressure 160/91 H 04/19/25 08:22 Pulse Oximetry 97 04/19/25 08:22 Oxygen Delivery Room Air 04/19/25 01:47 <Parker Foss MD - Last Filed: 04/19/25 18:12> MDM MDM Narrative Medical decision making narrative: dinorah- 74-year-old male presents emergency department for evaluation for left flank pain. Patient states the pain was more intense last night but has since significantly improved. Patient care was signed out to be by the overnight physician with a CT scan pending. Patient is currently afebrile with no leukocytosis and a stable hemoglobin. Patient's UA was positive for hematuria negative for infection. CT scan does show a left-sided UVJ stone that is 6 mm in size. On re-evaluation patient states he does feel improved. Patient was offered admission for pain control but states he feels his pain could be controlled at home. Patient does prefer to have outpatient follow-up. Patient will be provided medications for pain control, nausea control and patient will also be provided Flomax to increase his chance of passing the stone. All questions concerns were addressed patient was encouraged of close follow-up with Urology and with his primary care physician. <Parker Foss MD - Last Filed: 04/19/25 18:12> Differential Diagnosis Differential Diagnosis: Ureterolithiasis, UTI, pyelonephritis, <Gomez Galindo MD - Last Filed: 04/19/25 06:50> Lab Data MDM Lab Attestation statement: I personally reviewed the patient's lab results. <Parker Foss MD - Last Filed: 04/19/25 18:12> Result diagrams: 04/19/25 02:11 04/19/25 02:11 <Gomez Galindo MD - Last Filed: 04/19/25 06:50> Labs: Lab Results 04/19/25 04/19/25 Range/Units 02:11 03:56 WBC 8.5 (4.5-10.0) K/mm3 RBC 3.93 L (4.6-6.20) M/mm3 Hgb 12.1 L (14.0-18.0) g/dL Hct 37.1 L (42.0-52.0) % MCV 94.4 (80-100) fl MCH 30.8 (26-34) pg MCHC 32.6 (32-36) g/dl RDW 13.4 (11.5-14.5) % Plt Count 321 (150-375) k/mm3 MPV 9.8 (7.4-10.4) fl Immature Gran % (Auto) 0.4 (0-0.5) % Neut % (Auto) 81.2 H (45.5-73.1) % Lymph % (Auto) 7.6 L (18.3-44.2) % [place] % (Auto) 8.9 H (2.6-8.5) % Eos % (Auto) 1.1 (0-4.4) % Baso % (Auto) 0.8 (0.2-1.2) % Lymph # (Auto) 0.65 L (0.9-3.2) K/mm3 [place] # (Auto) 0.8 H (0.1-0.6) K/mm3 Eos # (Auto) 0.1 (0-0.3) K/mm3 Baso # (Auto) 0.1 (0.0-0.1) K/mm3 Abs Immat Gran (auto) 0.03 (0.00-0.031) K/mm3 Absolute Neuts (auto) 6.9 H (1.3-6.7) K/mm3 Absolute Nucleated RBC 0.000 (0.0-0.012) K/mm3 Nucleated RBC % 0.0 (0.0-0.2) % Sodium 139 (137-145) mmol/L Potassium 3.6 (3.4-5.0) mmol/L Chloride 106 (98-107) mmol/L Carbon Dioxide 26 (22-30) mmol/L Anion Gap 7 (4-12) mmol/L BUN 13 (9-20) mg/dL Creatinine 0.99 (0.7-1.3) mg/dL Estim Creat Clear Calc Not Reportable Estimated GFR > 60 (59 - ) Glucose 136 H (65-110) mg/dL Calcium 8.8 (8.4-10.2) mg/dL Total Bilirubin 0.5 (0.2-1.3) mg/dL AST 33 (17-59) U/L ALT 28 (6-50) U/L Alkaline Phosphatase 81 (38-126) U/L Total Protein 7.3 (6.3-8.2) g/dL Albumin 4.2 (3.5-5.1) g/dL Lipase 56 (23-300) U/L Urine Color Yellow (Yellow) Urine Appearance Clear (Clear) Urine pH 6.5 (5.0-9.0) Ur Specific [place] 1.019 (1.001-1.035) Urine Protein Trace (Negative) mg/dL Urine Glucose (UA) Negative (Negative) mg/dL Urine Ketones 1+ H (Negative) mg/dL Ur Blood (Man) 3+ H (Negative) Urine Nitrate Negative (Negative) Urine Bilirubin Negative (Negative) Urine Urobilinogen 0.2 (<2.0) mg/dL Leukocyte Esterase Rfl Trace H (Negative) NELLIE/UL Urine RBC >100 H (0-2) /hpf Urine WBC 0-5 (0-3) /hpf Ur Squamous Epith Cells None seen (Few) /hpf Urine Bacteria None seen /hpf Urine Casts 0-2 <Gomez Galindo MD - Last Filed: 04/19/25 06:50> Lab Results 04/19/25 04/19/25 Range/Units 02:11 03:56 WBC 8.5 (4.5-10.0) K/mm3 RBC 3.93 L (4.6-6.20) M/mm3 Hgb 12.1 L (14.0-18.0) g/dL Hct 37.1 L (42.0-52.0) % MCV 94.4 (80-100) fl MCH 30.8 (26-34) pg MCHC 32.6 (32-36) g/dl RDW 13.4 (11.5-14.5) % Plt Count 321 (150-375) k/mm3 MPV 9.8 (7.4-10.4) fl Immature Gran % (Auto) 0.4 (0-0.5) % Neut % (Auto) 81.2 H (45.5-73.1) % Lymph % (Auto) 7.6 L (18.3-44.2) % [place] % (Auto) 8.9 H (2.6-8.5) % Eos % (Auto) 1.1 (0-4.4) % Baso % (Auto) 0.8 (0.2-1.2) % Lymph # (Auto) 0.65 L (0.9-3.2) K/mm3 [place] # (Auto) 0.8 H (0.1-0.6) K/mm3 Eos # (Auto) 0.1 (0-0.3) K/mm3 Baso # (Auto) 0.1 (0.0-0.1) K/mm3 Abs Immat Gran (auto) 0.03 (0.00-0.031) K/mm3 Absolute Neuts (auto) 6.9 H (1.3-6.7) K/mm3 Absolute Nucleated RBC 0.000 (0.0-0.012) K/mm3 Nucleated RBC % 0.0 (0.0-0.2) % Sodium 139 (137-145) mmol/L Potassium 3.6 (3.4-5.0) mmol/L Chloride 106 (98-107) mmol/L Carbon Dioxide 26 (22-30) mmol/L Anion Gap 7 (4-12) mmol/L BUN 13 (9-20) mg/dL Creatinine 0.99 (0.7-1.3) mg/dL Estim Creat Clear Calc Not Reportable Estimated GFR > 60 (59 - ) Glucose 136 H (65-110) mg/dL Calcium 8.8 (8.4-10.2) mg/dL Total Bilirubin 0.5 (0.2-1.3) mg/dL AST 33 (17-59) U/L ALT 28 (6-50) U/L Alkaline Phosphatase 81 (38-126) U/L Total Protein 7.3 (6.3-8.2) g/dL Albumin 4.2 (3.5-5.1) g/dL Lipase 56 (23-300) U/L Urine Color Yellow (Yellow) Urine Appearance Clear (Clear) Urine pH 6.5 (5.0-9.0) Ur Specific [place] 1.019 (1.001-1.035) Urine Protein Trace (Negative) mg/dL Urine Glucose (UA) Negative (Negative) mg/dL Urine Ketones 1+ H (Negative) mg/dL Ur Blood (Man) 3+ H (Negative) Urine Nitrate Negative (Negative) Urine Bilirubin Negative (Negative) Urine Urobilinogen 0.2 (<2.0) mg/dL Leukocyte Esterase Rfl Trace H (Negative) NELLIE/UL Urine RBC >100 H (0-2) /hpf Urine WBC 0-5 (0-3) /hpf Ur Squamous Epith Cells None seen (Few) /hpf Urine Bacteria None seen /hpf Urine Casts 0-2 <Parker Foss MD - Last Filed: 04/19/25 18:12> Imaging Data Radiologist's impression: ITS Impressions Abdomen/Pelvis CT 04/19/25 07:40 IMPRESSION: 1. Left kidney hydronephrosis from 6 mm UPJ stone. 2. Bilateral nephrolithiasis. 3. 11 mm stone right UPJ but no hydronephrosis. ADDENDUM: 04/19/25 0829 Typographical error on original report. Impression should state: left kidney hydronephrosis from 6 mm UVJ stone, not UPJ stone. <Gomez Galindo MD - Last Filed: 04/19/25 06:50> ITS Impressions Abdomen/Pelvis CT 04/19/25 07:40 IMPRESSION: 1. Left kidney hydronephrosis from 6 mm UPJ stone. 2. Bilateral nephrolithiasis. 3. 11 mm stone right UPJ but no hydronephrosis. ADDENDUM: 04/19/25 0829 Typographical error on original report. Impression should state: left kidney hydronephrosis from 6 mm UVJ stone, not UPJ stone. <Parker Foss MD - Last Filed: 04/19/25 18:12> Discharge Plan Discharge Clinical Impression: Calculus of distal left ureter <Gomez Galindo MD - Last Filed: 04/19/25 06:50> Patient Disposition: Home <Gomez Galindo MD - Last Filed: 04/19/25 06:50> Condition: Stable <Gomez Galindo MD - Last Filed: 04/19/25 06:50> Instructions: Antibiotic Form, Kidney Stones (ED), How to Strain Your Urine (ED), Flank Pain (ED) <Gomez Galindo MD - Last Filed: 04/19/25 06:50> Additional Instructions: [place] for pain control. Zofran for nausea control. Flomax as directed to help you pass the stone. Strain your urine as instructed. Have close follow-up with your primary care physician and with Urology. <Gomez Galindo MD - Last Filed: 04/19/25 06:50> Patient Language: Romansh <Gomez Galindo MD - Last Filed: 04/19/25 06:50> Prescriptions: New hydrocodone-acetaminophen 5-325 mg tablet 1 tablet PO Q12H PRN (Reason: pain) Qty: 14 0RF tamsulosin 0.4 mg capsule 0.4 mg PO DAILY 14 Days Qty: 14 0RF ondansetron 4 mg tablet,disintegrating 4 mg PO Q8H PRN (Reason: nausea and vomiting) Qty: 14 0RF No Action multivitamin Tablet 1 tablet PO DAILY metoprolol succinate 50 mg tablet extended release 24 hr 50 mg PO DAILY Patient Comments: Not taking lisinopril 20 mg tablet 20 mg PO DAILY Patient Comments: Alternate 10mg or 20mg Eliquis 5 mg tablet 5 mg PO ONCE Patient Comments: Not taking - been off 3 weeks as of 02/03 ascorbic acid (vitamin C) [Vitamin C] 1,000 mg tablet 1 g PO DAILY pantoprazole 40 mg tablet,delayed release (DR/EC) 40 mg PO Q12H Qty: 60 3RF cyclobenzaprine 10 mg tablet 10 mg PO BID PRN (Reason: muscle spasm) Qty: 14 0RF methylprednisolone [Medrol (Jacky)] 4 mg tablets,dose pack See Rx Instructions .ROUTE .COMPLEX Qty: 21 0RF Rx Instructions: for 6 days hydrocodone-acetaminophen 5-325 mg tablet 1 tablet PO Q12H PRN (Reason: pain) Qty: 14 0RF <Gomez Galindo MD - Last Filed: 04/19/25 06:50> Follow-up/Referrals: Anish Riggins MD [Physician, Urology] Indira,DO Jett [Primary Care Provider] <Gomez Galindo MD - Last Filed: 04/19/25 06:50>
[2025-04-19 05:19] VITALS: BP 163/88; PULSE 73; RESP 18; O2SAT 98
[2025-04-19 05:31] VITALS: BP 170/91; PULSE 82; RESP 19; O2SAT 97
--- NOTE | 2025-04-19 08:05 | PC.NURSE ---
pt expressed frustration with how long his ER visit has been. this RN educated pt that since he came in during the night it takes longer for the CT to be read by the radiologist. pt unwilling to accept education and still berating this RN about his wait time and another visit he had in outpatient labs about his wait time there and how rude staff was also about last time he was here and the computers were done. this RN expressed that I have nothing to do with how long the scans take to be read. pt had a question about his UA, this RN educated that as an RN I cannot give results out but will send the MD in as soon as available, pt said send him in now and not in 20 minuets, this RN educated that this is an ER and the MD sees dying patients first.
[2025-04-19 08:22] VITALS: BP 160/91; PULSE 78; RESP 16; O2SAT 97
== END 2025-04-19 08:36 | disposition home or self-care (01) ==
PROVIDERS: Physician Assistant; Emergency Provider Emergency Medicine; PCP Student in an Organized Health Care Education/Training Program
DX: N20.1 Calculus of ureter (principal)
CPT/HCPCS: 36415; 74176; 80053; 81001; 83690; 85025; 96360; 99284; J7030